=== PATIENT | male | born 1980 | race Caucasian/White ===

== ENCOUNTER 2018-10-29 13:44 | Emergency (ER) | payer OTHER, SELFPAY ==
[2018-10-29 13:52] VITALS: BP 211/121; PULSE 108; RESP 20; TEMP 37; O2SAT 100
--- NOTE | 2018-10-29 13:58 | ED.CHESTPAIN ---
HPI - Chest Pain General Chief Complaint: Chest Pain Stated Complaint: possible heart attack Time Seen by Provider: 10/29/18 13:53 Source: patient Mode of arrival: ambulatory Limitations: no limitations History of Present Illness HPI narrative: Patient is a 38-year-old male who presents with low large chronic right inguinal hernia with worsening pain and numbness. He says he woke up with severe right groin pain he then started having chest pain and arm pain. He feels like something might be wrong. He sometimes is able to put his inguinal hernia back in place but most the time it is out. Mom however the numbness in increased pain is what is concerning to him. His chest pain is nonradiating centrally located he denies shortness of breath MD complaint: chest pain and other (Right groin pain) Related Data Home Medications Medication Instructions Recorded Confirmed albuterol sulfate [Ventolin HFA] 1 puff INH #0 05/18/17 hydrochlorothiazide 12.5 mg PO QDAY #0 05/18/17 Previous Rx's Medication Instructions Recorded atenolol 50 mg PO DAILY #30 tab 10/29/18 hydrochlorothiazide 12.5 mg PO DAILY #30 tab 10/29/18 Allergies Allergy/AdvReac Type Severity Reaction Status Date / Time No Known Drug Allergies Allergy Verified 10/29/18 14:31 Review of Systems Review of Systems ROS Unobtainable: All systems reviewed & are unremarkable except as noted in HPI and below Constitutional Denies chills, Denies fever(s), Denies lethargy and Denies weakness Eyes Denies change in vision, Denies eye discharge, Denies irritation and Denies loss of vision Cardiovascular Denies dyspnea and Denies dyspnea on exertion Respiratory Denies cough, Denies dyspnea, Denies dyspnea on exertion and Denies wheezing Gastrointestinal Gastrointestinal: Denies abdominal pain, Denies change in bowel habits, Denies diarrhea, Denies nausea and Denies vomiting Genitourinary Reports as per HPI Musculoskeletal Denies back pain, Denies muscle weakness, Denies numbness and Denies tingling Integumentary/Breasts Denies pruritus, Denies erythema, Denies rash and Denies wounds Neurologic Denies loss of vision, Denies numbness, Denies tingling and Denies weakness Allergic/Immunologic Denies wheezing [facility] Medical History Hypertension (Acute) Social History Smoking Status: Current every day smoker Social History Smoking Status: Current every day smoker Exam Initial Vital Signs Initial Vital Signs: Vital Signs Temperature 98.6 F 10/29/18 13:52 Pulse Rate 108 H 10/29/18 13:52 Respiratory Rate 20 10/29/18 13:52 Blood Pressure 211/121 H 10/29/18 13:52 Pulse Oximetry 100 10/29/18 13:52 GENERAL: Well-appearing, well-nourished and in no acute distress. HEENT: Head atraumatic,EOMI, pupils reactive, face symmetric, CARDIOVASCULAR: Regular rate and rhythm without murmurs, rubs or gallops. RESPIRATORY: Breath sounds equal bilaterally, no wheezes rales or rhonchi. ABDOMEN: Soft, nontender. Normoactive bowel sounds all 4 quadrants. No guarding or rebound. : large right inguinal hernia. Not reducible. Testicle felt, slightly tender. left testicle non tender. EXTREMITIES: Normal range of motion, no clubbing or edema. Neurovascularly intact NEUROLOGICAL: Alert and oriented x4.Normal gait and speech. SKIN: Warm, dry, no laceration, no petechiae, no rashes or lesions. Course Orders Ordered: ED Orders 10/29/18 13:46 EKG-12 Lead Routine 10/29/18 14:00 Complete Blood Count AUTO DIFF Stat Comprehensive Metabolic Panel Stat Lipase Stat Partial Thromboplastin Time Stat Prothrombin Time INR Stat Troponin & CK Cardiac Panel Stat 10/29/18 14:07 XR chest 1V Stat 10/29/18 14:25 US scrotum Stat 10/29/18 16:13 CT abdomen pelvis w con Stat Discontinued Medications Hydromorphone HCl (Dilaudid) 0.5 mg IV NOW ONE Stop: 10/29/18 14:26 Last Admin: 10/29/18 14:55 Dose: 0.5 mg Hydromorphone HCl (Dilaudid) 0.5 mg IV NOW ONE Stop: 10/29/18 15:47 Last Admin: 10/29/18 15:59 Dose: 0.5 mg Lorazepam (Ativan) 0.5 mg IV NOW ONE Stop: 10/29/18 15:47 Last Admin: 10/29/18 15:58 Dose: 0.5 mg Vital Signs - 8 hr 10/29/18 13:52 10/29/18 16:30 10/29/18 17:30 Temperature 98.6 F Pulse Rate 108 H 99 H 98 H Respiratory Rate 20 20 22 Blood Pressure 211/121 H Blood Pressure [Left Arm] 174/113 H 171/110 H Pulse Oximetry 100 96 100 MDM - Chest Pain Lab Data Attestation: I reviewed the patient's lab results. Result diagrams: 10/29/18 14:00 10/29/18 14:00 Lab Results 10/29/18 10/29/18 10/29/18 Range/Units 14:00 14:00 14:00 WBC 10.4 (4.5-11.0) X10^3/uL RBC 4.89 (4.5-5.9) X10^6/uL Hgb 16.4 (13.5-17.5) g/dL Hct 46.6 (41-53) % MCV 95.2 (80-100) fL MCH 33.4 (26-34) PG MCHC 35.1 (30-36) % RDW 12.7 (11.6-14.8) % Plt Count 210 (150-400) X10^3/uL Neut % (Auto) 53.6 (50-75) % Lymph % (Auto) 37.2 (25-40) % Hawkins % (Auto) 7.0 (3-14) % Eos % (Auto) 1.0 L (2-4) % Baso % (Auto) 1.2 (0-2) % Neut # (Auto) 5600 (8996-6208) /uL Lymph # (Auto) 3900 (9681-3199) /uL Hawkins # (Auto) 700 (0-900) /uL Eos # (Auto) 100 (0-450) /uL Baso # (Auto) 100 (0-100) /uL PT 10.7 (10.1-12.7) SECONDS INR 0.9 (0.9-1.3) APTT 29 (26.4-36.2) SECONDS Sodium 139 (137-145) mmol/L Potassium 3.6 (3.4-5.1) mmol/L Chloride 103 (98-107) mmol/L Carbon Dioxide 22 (22-32) mmol/L BUN 12 (9-20) mg/dL Creatinine 0.70 (0.66-1.25) mg/dL Estimated GFR > 60.0 (>60) mL/min BUN/Creatinine Ratio 17.1 (6-22) Glucose 107 H (70-100) mg/dL Calcium 9.6 (8.4-10.2) mg/dL Total Bilirubin 1.7 H (0.2-1.3) mg/dL AST 59 (17-59) IU/L ALT 47 (21-72) IU/L Alkaline Phosphatase 96 (38-126) U/L Total Creatine Kinase 119 (55-170) U/L CK-MB (CK-2) 1.23 (<2.37) ng/mL CK-MB (CK-2) Rel Index 1.0 L (1.5-5.0) % Troponin I < 0.012 (0.01-0.034) ng/mL Total Protein 7.7 (6.3-8.2) g/dL Albumin 4.5 (3.5-5.0) g/dL Globulin 3.2 (1.7-4.1) g/dL Albumin/Globulin Ratio 1.4 (1.0-2.8) Lipase 209 (23-300) U/L Imaging Data CT scan - abdomen: Radiologist's impression: PROCEDURE: CT ABDOMEN PELVIS W CON INDICATIONS: right ingunal hernia pain and very large TECHNIQUE: After the administration of oral and intravenous contrast, 5 mm thick sections acquired from the diaphragms to the symphysis. 5 mm thick coronal and sagittal reformats were performed. For radiation dose reduction, the following was used: automated exposure control, adjustment of mA and/or kV according to patient size. COMPARISON: None. FINDINGS: Image quality: Diagnostic. ABDOMEN: Lung bases: Lung bases are clear. Heart size is normal. Solid organs: Liver is borderline prominent in size and demonstrates decreased density when compared to the spleen. No focal liver lesions are identified. Gallbladder is not enlarged or inflamed. Biliary system is non-dilated. Pancreas enhances normally. Spleen is normal in size and enhancement. No adrenal nodules. Kidneys are normal in size and enhancement, without hydronephrosis. A 2 mm nonobstructing superior right renal calculus is evident (image 46, series 4). Peritoneum and bowel: Stomach and duodenum are unremarkable. The small bowel loops are nondilated. The appendix is well-visualized and normal in size and appearance. No mesenteric inflammation is evident. No free fluid, loculated fluid collection or free air is identified. Nodes and vessels: No retroperitoneal or mesenteric adenopathy. Aorta and inferior vena cava are normal in caliber. Bones: No acute fracture or suspicious osseous lesion is identified. Mild degenerative changes of the lumbar spine are noted. PELVIS: Genitourinary: Bladder wall thickness is normal. Miscellaneous: There is a large right inguinal hernia identified that measures approximately 5 x 4 cm at the opening (neck). A prominent amount of mesenteric fat is seen extending into this hernia sac through the right inguinal abdominal wall defect. No bowel is extending into this hernia. Bones: No suspicious bony lesions. No acute pelvic fractures are evident. There mild degenerative changes of the right sacroiliac joint and bilateral hips. IMPRESSION: 1. Large mesenteric fat containing right inguinal hernia extending into the scrotal sac. No bowel is evident extending into this hernia. 2. No bowel obstruction. 3. Probable hepatic steatosis. Please correlate clinically to exclude other chronic liver diseases. 4. Nonobstructing punctate superior right renal calculus. Dictated by: Ton Edmonds M.D. on 10/29/2018 at 16:04 Approved by: Ton Edmonds M.D. on 10/29/2018 at 16:08 us scrotum: Radiologist's impression: PROCEDURE: US SCROTUM INDICATIONS: RT TESTICLE PAIN, LARGE HERNIA TECHNIQUE: Real-time scanning was performed of the scrotum and testicles, with image documentation. Color and pulse Doppler interrogation was performed of both testicles. COMPARISON: None. FINDINGS: Right: Testicle is normal in size at 5.1 x 2.8 x 3.2 cm, and homogenous in echotexture. Epididymis is normal in overall size and morphology. No hydrocele or varicoceles. Overlying scrotal skin is normal in thickness. There is a very large right inguinal hernia containing mesentery. No definite bowel is seen extending into this hernia. This hernia extends from the right inguinal region into the right scrotum and measures at least 16 x 9 cm. Left: Testicle is normal in size at 4.8 x 2.5 x 3.2 cm, and homogeneous in echotexture. Epididymis is normal in overall size and morphology. No hydrocele or varicoceles. Overlying scrotal skin is normal in thickness. Doppler: Color and pulse Doppler demonstrate normal and symmetric arterial flow in both testicles. IMPRESSION: 1. Large right inguinal hernia containing mesenteric fat that extends into the right scrotal sac. No definite bowel is seen within this hernia. The need for better characterization utilizing a pelvis CT may be determined clinically. 2. No evidence of testicular mass, epididymal orchitis, or testicular torsion. Dictated by: Ton Edmonds M.D. on 10/29/2018 at 14:46 Chest x-ray: Radiologist's impression: PROCEDURE: XR CHEST 1V INDICATIONS: chest pain TECHNIQUE: One view of the chest was acquired. COMPARISON: None. FINDINGS: Surgical changes and devices: None. Lungs and pleura: Lungs are clear. No pleural effusions or pneumothorax. Mediastinum: Mediastinal contours appear normal. Heart size is normal. Bones and chest wall: No suspicious bony lesions. Overlying soft tissues appear unremarkable. IMPRESSION: Negative chest. No acute cardiopulmonary process is suspected. Dictated by: Ton Edmonds M.D. on 10/29/2018 at 14:14 ECG Data Attestation: I personally reviewed and interpreted this ECG as follows: Prior ECG tracings: available for review Interpretation: Normal sinus rhythm rate 108 p.r. interval 128 acute RS [address] elevations or depressions similar to previous EKG MDM Narrative Medical decision making narrative: The patient's chest pain started after his right inguinal hernia pain. He had extreme sharp pain in his right inguinal hernia while on the toilet. This has happened to him in the past however he feels like it might be numb. Ultrasound confirms good blood flow to the testes. I have tried to reduce it he says that it has gone down over it looks the same size to me. I am able to press on the hernia without any significant discomfort. It does not seem reducible to me but he is not in severe significant pain. A CT does show large fat containing hernia. This hernia has been here for at least 20 years. It is non reducible he feels it coming in and out. At this time the numbness that he was feeling is overall better. His chest pain has resolved. He states that he has not been on his blood pressure medication for a while, he has not been able to make appointment with PCP. I will refill his blood pressure medications. He really no longer is having any chest pain. His biggest concern and pain started in his inguinal hernia. Discharge Plan Departure Patient Disposition: Home Clinical Impression: Hernia, inguinal, right Discharge Date/Time: 10/29/18 17:40 Interventions: ED Discharge Assessment Last Done: 10/29/18 17:39 Instructions: DI for Groin Hernia Activity Restrictions/Additional Instructions: *You have been diagnosed with large right inguinal hernia filled with fat *What to do: At this time blood work and heart are reassuring. You will need to have surgery on your hernia however at this time it is non emergent. *Continue to take medications as directed Atenolol 50 mg once a day Hydrochlorothiazide 12.5 mg once a day *Follow up with your primary care provider in 2-3 days *Return to ER if you should have increasing right groin pain, persistent vomiting inability to have bowel movement, chest pain shortness of breath or any new, worsening or concerning symptoms Prescriptions: New atenolol 50 mg tablet 50 mg PO DAILY Qty: 30 RF: 0 hydrochlorothiazide 12.5 mg tablet 12.5 mg PO DAILY Qty: 30 RF: 0 No Action hydrochlorothiazide 12.5 MG tablet 12.5 mg PO QDAY Qty: 0 RF: 0 albuterol sulfate [Ventolin HFA] 90 MCG/PUFF HFA aerosol inhaler 1 puff INH Qty: 0 RF: 0 Referrals: [facility] [Provider Group] [facility] [Outside]
--- NOTE | 2018-10-29 14:07 | DI.RAD.S_ITS ---
PROCEDURE: XR CHEST 1V INDICATIONS: chest pain TECHNIQUE: One view of the chest was acquired. COMPARISON: None. FINDINGS: Surgical changes and devices: None. Lungs and pleura: Lungs are clear. No pleural effusions or pneumothorax. Mediastinum: Mediastinal contours appear normal. Heart size is normal. Bones and chest wall: No suspicious bony lesions. Overlying soft tissues appear unremarkable. IMPRESSION: Negative chest. No acute cardiopulmonary process is suspected. Dictated by: Ton Edmonds M.D. on 10/29/2018 at 14:14 Approved by: Ton Edmonds M.D. on 10/29/2018 at 14:14
--- NOTE | 2018-10-29 14:25 | DI.US.S_ITS ---
PROCEDURE: US SCROTUM INDICATIONS: RT TESTICLE PAIN, LARGE HERNIA TECHNIQUE: Real-time scanning was performed of the scrotum and testicles, with image documentation. Color and pulse Doppler interrogation was performed of both testicles. COMPARISON: None. FINDINGS: Right: Testicle is normal in size at 5.1 x 2.8 x 3.2 cm, and homogenous in echotexture. Epididymis is normal in overall size and morphology. No hydrocele or varicoceles. Overlying scrotal skin is normal in thickness. There is a very large right inguinal hernia containing mesentery. No definite bowel is seen extending into this hernia. This hernia extends from the right inguinal region into the right scrotum and measures at least 16 x 9 cm. Left: Testicle is normal in size at 4.8 x 2.5 x 3.2 cm, and homogeneous in echotexture. Epididymis is normal in overall size and morphology. No hydrocele or varicoceles. Overlying scrotal skin is normal in thickness. Doppler: Color and pulse Doppler demonstrate normal and symmetric arterial flow in both testicles. IMPRESSION: 1. Large right inguinal hernia containing mesenteric fat that extends into the right scrotal sac. No definite bowel is seen within this hernia. The need for better characterization utilizing a pelvis CT may be determined clinically. 2. No evidence of testicular mass, epididymal orchitis, or testicular torsion. Dictated by: Ton Edmonds M.D. on 10/29/2018 at 14:46 Approved by: Ton Edmonds M.D. on 10/29/2018 at 14:49
[2018-10-29 14:33] LABS: Add Manual Diff / Slide Review NO; Basophils Absolute Auto 100 /uL (0-100); Basophils Percent Auto 1.2 % (0-2); Eosinophils Absolute Auto 100 /uL (0-450); Hematocrit 46.6 % (41-53); Hemoglobin 16.4 g/dL (13.5-17.5); Lymphocytes Absolute Auto 3900 /uL (1100-4500); Lymphocytes Percent Auto 37.2 % (25-40); Mean Corpuscular HGB Conc 35.1 % (30-36); Mean Corpuscular Hemoglobin 33.4 PG (26-34); Mean Corpuscular Volume 95.2 fL (80-100); Monocytes Absolute Auto 700 /uL (0-900); Neutrophils Absolute Auto 5600 /uL (1500-7000); Neutrophils Percent Auto 53.6 % (50-75); Platelet Count 210 X10^3/uL (150-400); Red Blood Cell Count 4.89 X10^6/uL (4.5-5.9); Red Cell Distribution Width 12.7 % (11.6-14.8); White Blood Cell Count 10.4 X10^3/uL (4.5-11.0)
[2018-10-29 14:39] LABS: Alanine Aminotransferase 47 IU/L (21-72); Albumin 4.5 g/dL (3.5-5.0); Albumin Globulin Ratio 1.4 (1.0-2.8); Alkaline Phosphatase 96 U/L (38-126); Aspartate Aminotransferase 59 IU/L (17-59); BUN Creatinine Ratio 17.1 (6-22); Bilirubin Total 1.7 mg/dL (0.2-1.3); Blood Urea Nitrogen 12 mg/dL (9-20); Calcium 9.6 mg/dL (8.4-10.2); Carbon Dioxide 22 mmol/L (22-32); Chloride 103 mmol/L (98-107); Creatine Kinase 119 U/L (55-170); Estimated Glomerular Filt Rate > 60.0 mL/min (>60); Globulin 3.2 g/dL (1.7-4.1); Glucose 107 mg/dL (70-100); HEMOLYSIS 15 (0-50); INR 0.9 (0.9-1.3); Lipase 209 U/L (23-300); Potassium 3.6 mmol/L (3.4-5.1); Prothrombin Time 10.7 SECONDS (10.1-12.7); Sodium 139 mmol/L (137-145); Total Protein 7.7 g/dL (6.3-8.2)
[2018-10-29 14:41] LABS: PTT Partial Thromboplastin Tim 29 SECONDS (26.4-36.2)
[2018-10-29 14:51] LABS: Troponin I < 0.012 ng/mL (0.01-0.034)
[2018-10-29 14:54] LABS: Creatine Kinase MB 1.23 ng/mL (<2.37)
[2018-10-29] MEDS: HYDROMORPHONE 0.5 MG INJ IV ×2 (14:55→15:59)
[2018-10-29] MEDS: LORazepam 2 MG/ML INJ 0.5 MG IV (15:58)
--- NOTE | 2018-10-29 16:13 | DI.CT.S_ITS ---
PROCEDURE: CT ABDOMEN PELVIS W CON INDICATIONS: right ingunal hernia pain and very large TECHNIQUE: After the administration of oral and intravenous contrast, 5 mm thick sections acquired from the diaphragms to the symphysis. 5 mm thick coronal and sagittal reformats were performed. For radiation dose reduction, the following was used: automated exposure control, adjustment of mA and/or kV according to patient size. COMPARISON: None. FINDINGS: Image quality: Diagnostic. ABDOMEN: Lung bases: Lung bases are clear. Heart size is normal. Solid organs: Liver is borderline prominent in size and demonstrates decreased density when compared to the spleen. No focal liver lesions are identified. Gallbladder is not enlarged or inflamed. Biliary system is non-dilated. Pancreas enhances normally. Spleen is normal in size and enhancement. No adrenal nodules. Kidneys are normal in size and enhancement, without hydronephrosis. A 2 mm nonobstructing superior right renal calculus is evident (image 46, series 4). Peritoneum and bowel: Stomach and duodenum are unremarkable. The small bowel loops are nondilated. The appendix is well-visualized and normal in size and appearance. No mesenteric inflammation is evident. No free fluid, loculated fluid collection or free air is identified. Nodes and vessels: No retroperitoneal or mesenteric adenopathy. Aorta and inferior vena cava are normal in caliber. Bones: No acute fracture or suspicious osseous lesion is identified. Mild degenerative changes of the lumbar spine are noted. PELVIS: Genitourinary: Bladder wall thickness is normal. Miscellaneous: There is a large right inguinal hernia identified that measures approximately 5 x 4 cm at the opening (neck). A prominent amount of mesenteric fat is seen extending into this hernia sac through the right inguinal abdominal wall defect. No bowel is extending into this hernia. Bones: No suspicious bony lesions. No acute pelvic fractures are evident. There mild degenerative changes of the right sacroiliac joint and bilateral hips. IMPRESSION: 1. Large mesenteric fat containing right inguinal hernia extending into the scrotal sac. No bowel is evident extending into this hernia. 2. No bowel obstruction. 3. Probable hepatic steatosis. Please correlate clinically to exclude other chronic liver diseases. 4. Nonobstructing punctate superior right renal calculus. Dictated by: Ton Edmonds M.D. on 10/29/2018 at 16:04 Approved by: Ton Edmonds M.D. on 10/29/2018 at 16:08
[2018-10-29 16:30] VITALS: BP 174/113; PULSE 99; RESP 20; O2SAT 96
[2018-10-29 17:30] VITALS: BP 171/110; PULSE 98; RESP 22; O2SAT 100
== END 2018-10-29 17:40 | disposition home or self-care (01) ==
PROVIDERS: Emergency Provider Emergency Medicine
DX: K40.90 Unilateral inguinal hernia, without obstruction or gangrene, not specified as recurrent (principal)
CPT/HCPCS: 36591; 71045; 74177; 76870; 80053; 82550; 82553; 83690; 84484; 85025; 85610; 85730; 93005; 96374; 96375; 96376; 99282; 99285; J1170; J2060; Q9967

== ENCOUNTER 2018-11-13 12:40 | Emergency (ER) | payer OTHER, SELFPAY ==
[2018-11-13 12:53] VITALS: BP 179/132; PULSE 91; RESP 18; TEMP 37.1; O2SAT 98
--- NOTE | 2018-11-13 12:56 | DI.RAD.S_ITS ---
PROCEDURE: XR CHEST 1V INDICATIONS: chest pain TECHNIQUE: One view of the chest was acquired. COMPARISON: [facility], CR, XR CHEST 1V, 10/29/2018, 14:18. FINDINGS: Surgical changes and devices: None. Lungs and pleura: Lungs are clear. No pleural effusions or pneumothorax. Mediastinum: Mediastinal contours appear normal. Heart size is normal. Bones and chest wall: No suspicious bony lesions. Overlying soft tissues appear unremarkable. IMPRESSION: Stable chest. No acute cardiopulmonary process is evident. Dictated by: Ton Edmonds M.D. on 11/13/2018 at 12:34 Approved by: Ton Edmonds M.D. on 11/13/2018 at 12:35
[2018-11-13 13:02] LABS: Add Manual Diff / Slide Review NO; Basophils Absolute Auto 100 /uL (0-100); Basophils Percent Auto 0.9 % (0-2); Eosinophils Absolute Auto 100 /uL (0-450); Eosinophils Percent Auto 1.5 % (2-4); Hematocrit 44.8 % (41-53); Hemoglobin 15.6 g/dL (13.5-17.5); Lymphocytes Absolute Auto 2200 /uL (1100-4500); Lymphocytes Percent Auto 24.4 % (25-40); Mean Corpuscular HGB Conc 34.8 % (30-36); Mean Corpuscular Hemoglobin 33.8 PG (26-34); Mean Corpuscular Volume 97.1 fL (80-100); Monocytes Absolute Auto 600 /uL (0-900); Monocytes Percent Auto 6.3 % (3-14); Neutrophils Absolute Auto 6000 /uL (1500-7000); Neutrophils Percent Auto 66.9 % (50-75); Platelet Count 232 X10^3/uL (150-400); Red Blood Cell Count 4.61 X10^6/uL (4.5-5.9); Red Cell Distribution Width 12.9 % (11.6-14.8)
[2018-11-13 13:04] LABS: INR 0.9 (0.9-1.3); Prothrombin Time 10.8 SECONDS (10.1-12.7)
[2018-11-13 13:07] LABS: PTT Partial Thromboplastin Tim 29 SECONDS (26.4-36.2)
[2018-11-13 13:08] LABS: Alanine Aminotransferase 36 IU/L (21-72); Albumin 4.4 g/dL (3.5-5.0); Albumin Globulin Ratio 1.5 (1.0-2.8); Alkaline Phosphatase 85 U/L (38-126); Aspartate Aminotransferase 34 IU/L (17-59); Bilirubin Total 0.8 mg/dL (0.2-1.3); Blood Urea Nitrogen 14 mg/dL (9-20); Calcium 10.1 mg/dL (8.4-10.2); Carbon Dioxide 23 mmol/L (22-32); Chloride 104 mmol/L (98-107); Creatine Kinase 105 U/L (55-170); Estimated Glomerular Filt Rate > 60.0 mL/min (>60); Globulin 2.9 g/dL (1.7-4.1); Glucose 102 mg/dL (70-100); HEMOLYSIS < 15 (0-50); Lipase 60 U/L (23-300); Magnesium 1.5 mg/dL (1.6-2.3); Sodium 138 mmol/L (137-145); Total Protein 7.3 g/dL (6.3-8.2)
--- NOTE | 2018-11-13 13:08 | ED_ITS ---
HPI - Chest Pain <SHALA Parra - Last Filed: 11/13/18 22:27> General Chief Complaint: Chest Pain Stated Complaint: left shoulder/arm pain/cp/groin pain today Time Seen by Provider: 11/13/18 12:42 Source: patient Mode of arrival: ambulatory Limitations: no limitations History of Present Illness HPI narrative: 38-year-old male with a history of chronic right inguinal hernia that has been present for 20 years from a football injury and hypertension, presents emergency department today complaining of worsening numbness and tingling in his right testicle that occurred 45 minutes ago. He states that his hernia has not bothered him in the past, but he started having symptoms 3 weeks ago when he presented to the emergency department for the similar complaint. Today when the pain in his testicle occurred, he simultaneously developed substernal sharp stabbing 8/10 chest pain, left arm pain, and shortness of breath. Denies aggravating or alleviating symptoms. Patient states that he was feeling very anxious about his worsening testicle pain. He denies any headaches, worsening chest pain with exertion, orthopnea, cough, fevers, abdominal pain, nausea, vomiting, dysuria, penile discharge, rashes, or generalized weakness. Patient states he has not been taking his high blood pressure medication for the past month as he is for continent. Related Data Home Medications Medication Instructions Recorded Confirmed albuterol sulfate [Ventolin HFA] 1 puff INH #0 05/18/17 hydrochlorothiazide 12.5 mg PO QDAY #0 05/18/17 Previous Rx's Medication Instructions Recorded atenolol 50 mg PO DAILY #30 tab 10/29/18 hydrochlorothiazide 12.5 mg PO DAILY #30 tab 10/29/18 cephalexin 500 mg PO QID 7 Days #28 cap 11/13/18 hydrocodone-acetaminophen [[place]] 1 tab PO Q4-6H #14 tab 11/13/18 Allergies Allergy/AdvReac Type Severity Reaction Status Date / Time No Known Drug Allergies Allergy Verified 11/13/18 12:56 Review of Systems <SHALA Parra - Last Filed: 11/13/18 22:27> Review of Systems Narrative: REVIEW OF SYSTEMS: GENERAL: Denies fever, chills, malaise, or wt. loss. HENT: No head trauma, sore throat, or dysphagia. EYES: No loss of vision, double vision, eye pain, or irritation. CARDIOVASCULAR: Complains of chest pain, see HPI. RESPIRATORY: No cough. GASTROINTESTINAL: Complains of right testicular pain, see HPI GENITOURINARY: No flank pain, urinary incontinence, hesitancy, frequency, or dysuria. MUSCULOSKELETAL: No pain, weakness, or trauma. INTEGUMENTARY: No rash, lesions, or pruritus. NEURO: No numbness, tingling, memory loss, confusion, or headaches. PSYCH: No behavior or mood changes. PFSH <SHALA Parra - Last Filed: 11/13/18 22:27> Medical History Hypertension (Acute) Social History Smoking Status: Current every day smoker Social History Smoking Status: Current every day smoker Exam <SHALA Parra - Last Filed: 11/13/18 22:27> Initial Vital Signs Initial Vital Signs: Vital Signs Temperature 98.8 F 11/13/18 12:53 Pulse Rate 91 H 11/13/18 12:53 Respiratory Rate 18 11/13/18 12:53 Blood Pressure 179/132 H 11/13/18 12:53 Pulse Oximetry 98 11/13/18 12:53 PHYSICAL EXAMINATION: GENERAL: Well groomed, alert, and cooperative. Patient appears very anxious on examination. Answers questions promptly and appropriately. Vital signs noted. HENT: Normocephalic, atraumatic. Hearing intact. Oral mucosa is pink and moist. EYES: Conjunctiva pink, sclera white, no periorbital swelling. CARDIOVASCULAR: S1 and S2 sounds normal. Regular rate and rhythm, no murmurs, clicks, or bruits. No pedal edema. RESPIRATORY: Normal respiratory rate, trachea midline, airway patent. No s tridor, nasal flaring or accessory muscle use. Lungs are clear in all doherty without wheeze, rhonchi, or crackles. GASTROINTESTINAL: Bowel sounds normoactive. Abdomen is soft and non-tender. No organomegaly, no palpable masses. GENITALURINARY: Large softball size inguinal hernia and right side of scrotum, no increased tenderness on palpation, no masses palpated, no erythema or discoloration. No penile discharge. No flank tenderness. MUSCULOSKELETAL: Normal gait and coordination. Equal tone and mass bilaterally. EXTREMITIES: CMS intact, no pedal edema. SKIN: Warm, dry, soft, appropriate color for ethnicity. No lesions, rashes, or wounds. NEURO: Alert and Oriented X 3. Good coordination. No ataxia, or sensory deficits, or cognitive issues. PSYCH: Appropriate affect and mood. <Nancy Patel DO - Last Filed: 11/14/18 07:37> Initial Vital Signs Initial Vital Signs: Vital Signs Temperature 98.8 F 11/13/18 12:53 Pulse Rate 91 H 11/13/18 12:53 Respiratory Rate 18 11/13/18 12:53 Blood Pressure 179/132 H 11/13/18 12:53 Pulse Oximetry 98 11/13/18 12:53 Scores <SHALA Parra - Last Filed: 11/13/18 22:27> CHADS-VASc Congestive heart failure: no Hypertension: no Age 75 years or older: no Diabetes mellitus: no Stroke, TIA, or TE: no Vascular disease: no Age 65 to 74 years: no Sex category (female): Male CHADS-VASc Score: 0 Course <SHALA Parra - Last Filed: 11/13/18 22:27> Course Course Narrative: I had an extensive conversation with patient and his for over 15 minutes discussing possible origin of the patient's pain as well as relating that his test results were negative for concerning findings. Patient states his chest pain resolved after administration of Ativan, but the pain in his right testicle still remained, he had no relief from Toradol. Patient was requesting more medication, he was given a dose of IV medication and a prescription to take home. After much discussion, was very concerned about the pain on the posterior side of the scrotum, this correlates with a thickening seen on ultrasound. I offered a prescription for Keflex if the area becomes red, increased swelling, or increased pain that he may take for the possibility of cellulitis. Patient agreed that he would not take this medication unless his symptoms worsen. I stressed the importance of taking his blood pressure medication as well as a follow-up on . She was given a note for work as per request Orders Ordered: Discontinued Medications Aspirin (Aspirin Chew) 324 mg PO NOW ONE Stop: 11/13/18 12:57 Last Admin: 11/13/18 13:33 Dose: 324 mg Documented by: BRANDI Hydromorphone HCl (Dilaudid) 0.5 mg IV NOW ONE Stop: 11/13/18 14:28 Last Admin: 11/13/18 14:39 Dose: 0.5 mg Documented by: MAIN Ketorolac Tromethamine (Toradol) 30 mg IV NOW ONE Stop: 11/13/18 13:19 Last Admin: 11/13/18 13:32 Dose: 30 mg Documented by: BRANDI Lorazepam (Ativan) 1 mg IV NOW ONE Stop: 11/13/18 13:19 Last Admin: 11/13/18 13:33 Dose: 1 mg Documented by: BRANDI Ondansetron HCl (Zofran) 4 mg IV NOW ONE Stop: 11/13/18 12:59 Last Admin: 11/13/18 13:32 Dose: 4 mg Documented by: BRANDI Vital Signs Vital signs: Vital Signs - 8 hr 11/13/18 15:00 11/13/18 15:18 Temperature 98.4 F Pulse Rate 81 82 Respiratory Rate 22 20 Blood Pressure 173/114 H Blood Pressure [Right Arm] 183/115 H Pulse Oximetry 94 98 <Nancy Patel DO - Last Filed: 11/14/18 07:37> Orders Ordered: Discontinued Medications Aspirin (Aspirin Chew) 324 mg PO NOW ONE Stop: 11/13/18 12:57 Last Admin: 11/13/18 13:33 Dose: 324 mg Documented by: BRANDI Hydromorphone HCl (Dilaudid) 0.5 mg IV NOW ONE Stop: 11/13/18 14:28 Last Admin: 11/13/18 14:39 Dose: 0.5 mg Documented by: MAIN Ketorolac Tromethamine (Toradol) 30 mg IV NOW ONE Stop: 11/13/18 13:19 Last Admin: 11/13/18 13:32 Dose: 30 mg Documented by: BRANDI Lorazepam (Ativan) 1 mg IV NOW ONE Stop: 11/13/18 13:19 Last Admin: 11/13/18 13:33 Dose: 1 mg Documented by: JWILBOU Ondansetron HCl (Zofran) 4 mg IV NOW ONE Stop: 11/13/18 12:59 Last Admin: 11/13/18 13:32 Dose: 4 mg Documented by: BRANDI Vital Signs Vital signs: Vital Signs - 8 hr 11/13/18 15:00 11/13/18 15:18 Temperature 98.4 F Pulse Rate 81 82 Respiratory Rate 22 20 Blood Pressure 173/114 H Blood Pressure [Right Arm] 183/115 H Pulse Oximetry 94 98 MDM - Chest Pain <SHALA Parra - Last Filed: 11/13/18 22:27> Medical Records Data Attestation: I reviewed the patient's medical records. Lab Data Attestation: I reviewed the patient's lab results. Result diagrams: 11/13/18 12:50 11/13/18 12:50 Labs: Lab Results 11/13/18 11/13/18 11/13/18 Range/Units 12:50 12:50 12:50 WBC 9.0 (4.5-11.0) X10^3/uL RBC 4.61 (4.5-5.9) X10^6/uL Hgb 15.6 (13.5-17.5) g/dL Hct 44.8 (41-53) % MCV 97.1 (80-100) fL MCH 33.8 (26-34) PG MCHC 34.8 (30-36) % RDW 12.9 (11.6-14.8) % Plt Count 232 (150-400) X10^3/uL Neut % (Auto) 66.9 (50-75) % Lymph % (Auto) 24.4 L (25-40) % Bibb % (Auto) 6.3 (3-14) % Eos % (Auto) 1.5 L (2-4) % Baso % (Auto) 0.9 (0-2) % Neut # (Auto) 6000 (8908-0912) /uL Lymph # (Auto) 2200 (4930-9421) /uL Bibb # (Auto) 600 (0-900) /uL Eos # (Auto) 100 (0-450) /uL Baso # (Auto) 100 (0-100) /uL PT 10.8 (10.1-12.7) SECONDS INR 0.9 (0.9-1.3) APTT 29 (26.4-36.2) SECONDS Sodium 138 (137-145) mmol/L Potassium 4.0 (3.4-5.1) mmol/L Chloride 104 (98-107) mmol/L Carbon Dioxide 23 (22-32) mmol/L BUN 14 (9-20) mg/dL Creatinine 0.70 (0.66-1.25) mg/dL Estimated GFR > 60.0 (>60) mL/min BUN/Creatinine Ratio 20.0 (6-22) Glucose 102 H (70-100) mg/dL Calcium 10.1 (8.4-10.2) mg/dL Magnesium 1.5 L (1.6-2.3) mg/dL Total Bilirubin 0.8 (0.2-1.3) mg/dL AST 34 (17-59) IU/L ALT 36 (21-72) IU/L Alkaline Phosphatase 85 (38-126) U/L Total Creatine Kinase 105 (55-170) U/L CK-MB (CK-2) 1.28 (<2.37) ng/mL CK-MB (CK-2) Rel Index 1.2 L (1.5-5.0) % Troponin I < 0.012 (0.01-0.034) ng/mL Total Protein 7.3 (6.3-8.2) g/dL Albumin 4.4 (3.5-5.0) g/dL Globulin 2.9 (1.7-4.1) g/dL Albumin/Globulin Ratio 1.5 (1.0-2.8) Lipase 60 (23-300) U/L Imaging Data Chest x-ray: Radiologist's impression: [address] [address] XRay Report Signed Patient: Joselito Waddell WMR#: [id number] : 1980Acct:[id number] Age/Sex: 38 / MDate of Service: 11/13/18 Loc: ED Accession Number: [id number] Procedure: XR chest 1V Ordering Provider: Marlys Gerber PROCEDURE: XR CHEST 1V INDICATIONS: chest pain TECHNIQUE: One view of the chest was acquired. COMPARISON: [facility], CR, XR CHEST 1V, 10/29/2018, 14:18. FINDINGS: Surgical changes and devices: None. Lungs and pleura: Lungs are clear. No pleural effusions or pneumothorax. Mediastinum: Mediastinal contours appear normal. Heart size is normal. Bones and chest wall: No suspicious bony lesions. Overlying soft tissues appear unremarkable. IMPRESSION: Stable chest. No acute cardiopulmonary process is evident. Dictated by: Ton Edmonds M.D. on 11/13/2018 at 12:34 Approved by: Ton Edmonds M.D. on 11/13/2018 at 12:35 Scrotum US: Radiologist's impression: [address] [address] Ultrasound Report Signed Patient: Joselito Waddell WMR#: [id number] : 1980Acct:[id number] Age/Sex: 38 / MDate of Service: 11/13/18 Loc: ED Accession Number: [id number] Procedure: US scrotum Ordering Provider: Marlys Gerber PROCEDURE: US SCROTUM INDICATIONS: RIGHT TESTICLE NUMBNESS, HISTORY OF HERNIA TECHNIQUE: Real-time scanning was performed of the scrotum and testicles, with image documentation. Color and pulse Doppler interrogation was performed of both testicles. COMPARISON: [facility], , US SCROTUM, 10/29/2018, 15:00. FINDINGS: Right: Testicle is normal in size at 4.9 x 2.1 x 2 point cm, and homogenous in echotexture. Epididymis is normal in overall size and morphology. No hydrocele. Thickening of the right scrotal wall is present. There continues to be a large mesenteric containing right inguinal hernia with extension into the scrotum. Left: Testicle is normal in size at 4.6 x 3.1 x 2.5 cm, and homogeneous in echotexture. Epididymis is normal in overall size and morphology. No hydrocele or varicoce les. Overlying scrotal skin is normal in thickness. Doppler: Color and pulse Doppler demonstrate normal and symmetric arterial flow in both testicles. IMPRESSION: 1. No evidence of testicular torsion, epididymal orchitis, or a testicular mass. 2. There continues to be a large mesenteric fat containing right inguinal hernia that extends into the scrotal sac. 3. Scrotal wall thickening on the right is nonspecific. Please correlate clinically to exclude cellulitis. Dictated by: Ton Edmonds M.D. on 11/13/2018 at 13:02 Approved by: Ton Edmonds M.D. on 11/13/2018 at 13:05 ECG Data Interpretation: Normal sinus rhythm, rate 87, CT interval 160, QTC 396. No ST elevation or ST inversion, no T-wave abnormality, no ectopy. Possible slight left ventricle hypertrophy. EKG was also viewed by Dr. Patel. [facility] Narrative Medical decision making narrative: Patient's symptoms appear to clearly be caused by his known right-sided inguinal hernia. The source of the pain is directly unclear however, due to imaging his testicle does not appear to be compromised. I suspect that his chest pain was caused by anxiety about his inguinal hernia. However, differential includes ACS (less likely due to unchanged EKG, negative troponin, these episodes happened last time he came to the ER for his hernia--however he remains at risk due to his high blood pressure), PE (less likely due to clear lung sounds, lack of tachycardia, patient 98% on room air, no hypoxia exhibited, no reports of recent travel). Low concern for testicular torsion due to ultrasound indicating appropriate blood flow, lack of discoloration, lack of extreme tenderness). There is some suspicion of cellulitis as the ultrasound showed wall thickening at the place that he describes an increase of pain. Prescription was given to patient to use if pain or swelling increased, for erythema developed. Patient was highly encouraged to follow up with his surgical consult this week. Strict return precautions given. <Nancy Patel, DO - Last Filed: 11/14/18 07:37> Lab Data Labs: Lab Results 11/13/18 11/13/18 11/13/18 Range/Units 12:50 12:50 12:50 WBC 9.0 (4.5-11.0) X10^3/uL RBC 4.61 (4.5-5.9) X10^6/uL Hgb 15.6 (13.5-17.5) g/dL Hct 44.8 (41-53) % MCV 97.1 (80-100) fL MCH 33.8 (26-34) PG MCHC 34.8 (30-36) % RDW 12.9 (11.6-14.8) % Plt Count 232 (150-400) X10^3/uL Neut % (Auto) 66.9 (50-75) % Lymph % (Auto) 24.4 L (25-40) % Bibb % (Auto) 6.3 (3-14) % Eos % (Auto) 1.5 L (2-4) % Baso % (Auto) 0.9 (0-2) % Neut # (Auto) 6000 (2230-8626) /uL Lymph # (Auto) 2200 (3537-1721) /uL Bibb # (Auto) 600 (0-900) /uL Eos # (Auto) 100 (0-450) /uL Baso # (Auto) 100 (0-100) /uL PT 10.8 (10.1-12.7) SECONDS INR 0.9 (0.9-1.3) APTT 29 (26.4-36.2) SECONDS Sodium 138 (137-145) mmol/L Potassium 4.0 (3.4-5.1) mmol/L Chloride 104 (98-107) mmol/L Carbon Dioxide 23 (22-32) mmol/L BUN 14 (9-20) mg/dL Creatinine 0.70 (0.66-1.25) mg/dL Estimated GFR > 60.0 (>60) mL/min BUN/Creatinine Ratio 20.0 (6-22) Glucose 102 H (70-100) mg/dL Calcium 10.1 (8.4-10.2) mg/dL Magnesium 1.5 L (1.6-2.3) mg/dL Total Bilirubin 0.8 (0.2-1.3) mg/dL AST 34 (17-59) IU/L ALT 36 (21-72) IU/L Alkaline Phosphatase 85 (38-126) U/L Total Creatine Kinase 105 (55-170) U/L CK-MB (CK-2) 1.28 (<2.37) ng/mL CK-MB (CK-2) Rel Index 1.2 L (1.5-5.0) % Troponin I < 0.012 (0.01-0.034) ng/mL Total Protein 7.3 (6.3-8.2) g/dL Albumin 4.4 (3.5-5.0) g/dL Globulin 2.9 (1.7-4.1) g/dL Albumin/Globulin Ratio 1.5 (1.0-2.8) Lipase 60 (23-300) U/L ECG Data Attestation: I personally reviewed and interpreted this ECG as follows: Prior ECG tracings: available for review Interpretation: Normal sinus rhythm rate 87 p.r. interval 160 QRS [address] changes no T-wave inversions no sign of ischemia similar to previous EKGs Discharge Plan Departure Patient Disposition: Home Clinical Impression: Pain in right testicle Inguinal hernia Qualifiers: Obstruction and gangrene presence: without obstruction or gangrene Laterality: unilateral Recurrence: not specified as recurrent Qualified Code(s): K40.90 - Unilateral inguinal hernia, without obstruction or gangrene, not specified as recurrent Discharge Date/Time: 11/13/18 15:20 Instructions: DI for Cellulitis -- Adult, DI for Groin Hernia, DI for Atypical Chest Pain Activity Restrictions/Additional Instructions: Thank you for entrusting me with your care today. As discussed, your ultrasound shows that your hernia size is unchanged and there is no damage to your testicle. Your labs, EKG, and x-ray are not concerning for any heart issues. I highly recommend he continue taking your blood pressure medication. Please follow up with the surgeon as scheduled on . I have given you medication for pain, do not drive with this medication as it can make you drowsy, also be aware that it can cause constipation. Additionally, I have given you a medication for infection, if you continue to have pain and or increased swelling or redness please take this medication. If you take this medication, please take as directed and complete the entire course so the infection does not return. Return to the emergency department if he develops syncope, shortness of breath, severe headache, chest pain, high fevers, or other concerning symptoms. Prescriptions: New hydrocodone-acetaminophen [[place]] 5-325 mg tablet 1 tab PO Q4-6H Qty: 14 RF: 0 cephalexin 500 mg capsule 500 mg PO QID 7 Days Qty: 28 RF: 0 No Action hydrochlorothiazide 12.5 MG tablet 12.5 mg PO QDAY Qty: 0 RF: 0 albuterol sulfate [Ventolin HFA] 90 MCG/PUFF HFA aerosol inhaler 1 puff INH Qty: 0 RF: 0 atenolol 50 mg tablet 50 mg PO DAILY Qty: 30 RF: 0 hydrochlorothiazide 12.5 mg tablet 12.5 mg PO DAILY Qty: 30 RF: 0 Stand Alone Forms: Work Release Note
[2018-11-13 13:19] LABS: Troponin I < 0.012 ng/mL (0.01-0.034)
[2018-11-13 13:23] LABS: CKMB % Relative Index 1.2 % (1.5-5.0); Creatine Kinase MB 1.28 ng/mL (<2.37)
[2018-11-13 13:30] VITALS: BP 175/109; PULSE 86; RESP 15; O2SAT 97
[2018-11-13] MEDS: KETOROLAC 60 MG/2 ML VIAL 30 MG IV (13:32)
[2018-11-13] MEDS: ONDANSETRON 4 MG/2 ML INJ IV (13:32)
[2018-11-13] MEDS: ASPIRIN 81 MG CHEW TAB 324 MG PO (13:33)
[2018-11-13] MEDS: LORazepam 2 MG/ML INJ 1 MG IV (13:33)
[2018-11-13 14:00] VITALS: BP 181/105; PULSE 82; RESP 25; O2SAT 96
[2018-11-13] MEDS: HYDROMORPHONE 0.5 MG INJ IV (14:39)
[2018-11-13 15:00] VITALS: BP 183/115; PULSE 81; RESP 22; O2SAT 94
[2018-11-13 15:18] VITALS: BP 173/114; PULSE 82; RESP 20; TEMP 36.9; O2SAT 98
== END 2018-11-13 15:20 | disposition home or self-care (01) ==
PROVIDERS: Emergency Provider Nurse Practitioner
DX: N50.811 Right testicular pain (principal); K40.90 Unilateral inguinal hernia, without obstruction or gangrene, not specified as recurrent; R07.9 Chest pain, unspecified
CPT/HCPCS: 36591; 71045; 76870; 80053; 82550; 82553; 83690; 83735; 84484; 85025; 85610; 85730; 93005; 96374; 96375; 99283; 99285; J1170; J1885; J2060; J2405

== ENCOUNTER 2018-11-28 14:32 | Day surgery (SDC) | payer OTHER, SELFPAY ==
[2018-11-23 08:14] VITALS: BMI 31.4
[2018-11-28] VITALS (12 sets, daily range): BP systolic 102–143; BP diastolic 66–99; PULSE 67–79; RESP 9–16; TEMP 36.2–37; O2SAT 93–97; BMI 30.5
[2018-11-28] MEDS: LACTATED RINGERS 1,000 ML 100 ML IV (15:03)
[2018-11-28] MEDS: CEFAZOLIN 2 GM/100 ML FROZ.PIGGY IV (16:44)
--- NOTE | 2018-11-28 17:10 | SUR.OPER ---
Supine on padded OR bed, head on pillow, arms secured on padded arm boards at <90 degrees abduction, legs uncrossed, safety belt at thigh, tape over blanket over lower legs.
[2018-11-28] MEDS: BUPIVACAINE 0.5% (PF) VIAL 30 ML INJ (17:17)
[2018-11-28] MEDS: LACTATED RINGERS 1,000 ML 42 ML IV (18:14)
[2018-11-28] MEDS: fentaNYL 100 MCG/2 ML INJ 50 MCG IV ×2 (19:07→19:16)
--- NOTE | 2018-11-28 19:12 | SUR.PHASEI ---
Rx given for surgical site pain. HOB elevated, jello and water given to prepare for PO rx. Dr. Lott spoke to patient.
--- NOTE | 2018-11-28 19:16 | PM.OP.1 ---
Operative Date/Time/Diagnoses Date of procedure: 11/28/18 Time of procedure: 19:00 Pre-op diagnosis: Incarcerated right inguinal hernia Post-op diagnosis: same (Huge amount of omentum trapped within the right hemiscrotum) Procedure & Clinicians Procedure: Repair with plug and patch technique Same procedure as scheduled: Yes Indications: Symptomatic right inguinal hernia interfering with wearing clothes and walking Surgeon: Alen Lott Click Yes if Unassisted: Yes Anesthesia Type: General Operative Notes Findings: Huge amount of omentum in the scrotum. Reduced with difficulty. Closure Type: primary Specimen(s): none sent Applied: implant(s) (Mesh) Estimated Blood Loss (mL): 40 Blood products transfused: none Procedure in detail: The patient was placed supine on the operating room table and underwent general LMA anesthesia. He was prepped and draped in the usual fashion. I included the scrotum in the prep. A transverse incision was made overlying the internal ring and carried down to the level of the external oblique. The external oblique was opened parallel with its fibers through the external ring. The hernia was so large that I could not initially elevate the cord structures. An incision was made in the cremaster and I carried it down to the hernia sac. The hernia sac was opened longitudinally and I pulled the large amount of omentum out of his scrotum. I then set about the task of reducing it into the peritoneal cavity. This was done with great difficulty and tedium. The patient was placed in Trendelenburg. He actually had to be paralyzed in order that I could relaxes abdominal wall enough to ultimately reduce the omentum back into the peritoneal cavity. The cord structures were then elevated. I dissected the sac from the surrounding structures and dissected it free of the level the deep epigastric vessels. I removed a large portion of the sac. I then pursestring ligated the sac at the level the deep epigastric vessels with 2 0 silk. I then over sewed the end with the same material. The stump was allowed to retract. A large plug was placed in the defect created intact into place with interrupted Ethibond suture. I then closed the cremaster over it. The floor was examined and was found to be attenuated. A patch was placed across the floor and tacked at the pubic tubercle, the posterior lamella of the anterior rectus sheath, the ilioinguinal ligament, and superior lateral to the cord. The opening was modified as necessary to allow the mesh to go around the enlarged cord and also to prevent tight constriction of the cord. Sutures of 0 Ethibond were used to secure the mesh. The external oblique was closed with a running 3 0 Vicryl. The subcu was closed with interrupted 3 0 Vicryl. The skin was closed with interrupted 4 0 Vicryl subcuticular stitches and michelle. Dressing was applied, the patient was awakened, and the patient was taken to the recovery area in good condition. The testicle was pulled down into the scrotum prior to the patient awakening. Care was taken not to torse it. This was an unusually difficult hernia repair the took twice as long as normal due to its huge size and the amount of omentum within the scrotum. This deformed the anatomy significantly and made the repair that much more challenging. Complications: none Post-operative Condition: stable Disposition: PACU
[2018-11-28] MEDS: OXYCODONE/ACETAMINOPHEN 5/325 TABLET 1 TAB PO (19:20)
--- NOTE | 2018-11-28 19:36 | SUR.PHASEI ---
1925 here, talking with patient. Pt. declined more medication, wants to wait and see how he is when the PO rx takes effect. 1934 Dr. Lott spoke with patient, pt drowsy, trial of room air = sat down to 89%; returned to O2 at 2LNP. Dressing remains CDI. Calm and relaxed.
--- NOTE | 2018-11-28 20:02 | SUR.PHASEI ---
2002 transitioned to phase II, regarding pain, states I'm pretty ok. Occasionially desats briefly then rebounds to 94-96%. Skin warm and dry, resp unlabored. No nausea. Pain is only pressure at the site.
--- NOTE | 2018-11-28 21:11 | SUR.PHASEII ---
2042 returned from getting pain med. Pt stable, comfortable, cooperative, VSS. IV dc'd and assisted into wheelchair by Giorgio Grande RN. Discharged home with . No nausea, resp unlabored, skin warm and dry, color pink. Questions answered.
== END 2018-11-28 20:51 | disposition home or self-care (01) ==
PROVIDERS: PCP Student in an Organized Health Care Education/Training Program; Visit Provider Specialist
PROC: (CPT 49505; principal; 2018-11-28 15:45)
DX: K40.30 Unilateral inguinal hernia, with obstruction, without gangrene, not specified as recurrent (principal); I10 Essential (primary) hypertension
CPT/HCPCS: 49505; C1781; J0690; J1100; J2405; J2704; J3010

== ENCOUNTER 2020-04-29 13:06 | Observation (INO) | payer OTHER, SELFPAY ==
[2020-04-29] VITALS (12 sets, daily range): BP systolic 104–167; BP diastolic 62–106; PULSE 72–82; RESP 12–20; TEMP 36.2–36.6; O2SAT 93–99; BMI 25.4
--- NOTE | 2020-04-29 13:29 | DI.RAD.S_ITS ---
PROCEDURE: XR CHEST 2V INDICATIONS: chest pain TECHNIQUE: 2 views of the chest were acquired. COMPARISON: [facility], CR, XR CHEST 1V, 11/13/2018, 13:05. FINDINGS: Surgical changes and devices: None. Lungs and pleura: Lungs are clear. No pleural effusions or pneumothorax. Mediastinum: Mediastinal contours are normal. Heart size is normal. Bones and chest wall: No suspicious bony abnormalities. Soft tissues appear unremarkable. IMPRESSION: No acute cardiopulmonary abnormality Dictated by: Galdino Negro M.D. on 04/29/2020 at 14:00 Approved by: Galdino Negro M.D. on 04/29/2020 at 14:00
[2020-04-29 14:29] LABS: Alanine Aminotransferase 172 IU/L (<50); Albumin 2.9 g/dL (3.5-5.0); Albumin Globulin Ratio 0.9 (1.0-2.8); Alkaline Phosphatase 313 U/L (38-126); Aspartate Aminotransferase 375 IU/L (17-59); BUN Creatinine Ratio 18.6 (6-22); Bilirubin Total 2.2 mg/dL (0.2-1.3); Blood Urea Nitrogen 16 mg/dL (9-20); Calcium 7.8 mg/dL (8.4-10.2); Carbon Dioxide 24 mmol/L (22-32); Chloride 93 mmol/L (98-107); Creatine Kinase 211 U/L (55-170); Estimated Glomerular Filt Rate > 60.0 mL/min (>60); Globulin 3.4 g/dL (1.7-4.1); Glucose 91 mg/dL (70-100); Lipase 57 U/L (23-300); Potassium 3.3 mmol/L (3.4-5.1); Sodium 126 mmol/L (137-145); Total Protein 6.3 g/dL (6.3-8.2)
[2020-04-29 14:41] LABS: Troponin I < 0.012 ng/mL (0.01-0.034)
[2020-04-29 14:44] LABS: CKMB % Relative Index 1.2 % (1.5-5.0); Creatine Kinase MB 2.47 ng/mL (<2.37)
[2020-04-29 14:46] LABS: Add Manual Diff / Slide Review NO; Basophils Absolute Auto 100 /uL (0-100); Eosinophils Absolute Auto 100 /uL (0-450); Eosinophils Percent Auto 0.9 % (2-4); Hematocrit 39.1 % (41-53); Hemoglobin 13.7 g/dL (13.5-17.5); Lymphocytes Absolute Auto 2200 /uL (1100-4500); Lymphocytes Percent Auto 27.2 % (25-40); Mean Corpuscular Hemoglobin 36.1 PG (26-34); Mean Corpuscular Volume 102.7 fL (80-100); Monocytes Absolute Auto 400 /uL (0-900); Monocytes Percent Auto 4.5 % (3-14); Neutrophils Absolute Auto 5400 /uL (1500-7000); Neutrophils Percent Auto 66.4 % (50-75); Platelet Count 113 X10^3/uL (150-400); Red Blood Cell Count 3.81 X10^6/uL (4.5-5.9); Red Cell Distribution Width 14.7 % (11.6-14.8); White Blood Cell Count 8.1 X10^3/uL (4.5-11.0)
[2020-04-29 14:47] LABS: Mean Corpuscular HGB Conc 35.1 % (30-36)
[2020-04-29 14:50] LABS: HEMOLYSIS 25 (0-50)
--- NOTE | 2020-04-29 17:38 | ED_ITS ---
HPI - Chest Pain General Chief Complaint: Chest Pain Stated Complaint: 48-72 hrs of BP problems, chest pain Time Seen by Provider: 04/29/20 17:38 Source: patient Mode of arrival: Ambulatory History of Present Illness HPI narrative: 40-year-old gentleman with a history of hypertension and regular alcohol use presents with increasing chest pain abdominal pain leg and hand cramping. Symptoms have been getting worse over the last week and half. He notes that he typically will have 5 cocktail type drinks and evening and stopped doing this about 5 days ago. He is noticing of bit of shakiness today. He complains of significant upper abdominal pain that radiates up into his chest. He has noted some dark urine but no flank pain. He does not describe significant fevers but does note that his blood pressure has been quite labile recently when he notes that is elevated he will take extra blood pressure medication and then will have a period of hypotension. He notes that he has been slightly flushed over the last couple of days and comes in today mainly concerned about his chest pain. He denies any vomiting, he notes that he has been constipated with hemorrhoidal bleeding but no other change to stools. He complains of early satiety recently but does not note that he has lost significant weight. Typically he works out regularly and has not been doing that recently because of COVID and gym restrictions. Related Data Home Medications Medication Instructions Recorded Confirmed albuterol sulfate [Ventolin HFA] 1 puff INH PRN PRN #0 05/18/17 01/05/19 hydrochlorothiazide 12.5 mg PO QDAY #0 05/18/17 01/05/19 Previous Rx's Medication Instructions Recorded atenolol 50 mg PO DAILY #30 tab 10/29/18 hydrocodone-acetaminophen [[place]] 1 tab PO Q4-6H #14 tab 11/13/18 oxycodone-acetaminophen 5 mg-325 See Rx Instructions .ROUTE 12/08/18 mg tablet .COMPLEX PRN #20 tab Allergies Allergy/AdvReac Type Severity Reaction Status Date / Time No Known Drug Allergies Allergy Verified 04/29/20 13:28 Review of Systems Review of Systems ROS Unobtainable: All systems reviewed & are unremarkable except as noted in HPI and below Patient History Medical History (Updated 04/29/20 @ 19:54 by Era Montanez MD) Alcohol use disorder Anxiety Hypertension Family History Mother Hypertension Father Hypertension Social History marital status: unmarried,living together household members: significant other and children occupational status: employed Smoking Status: Current every day smoker alcohol intake: current substance use type: does not use Smoking Status: Current every day smoker alcohol intake frequency: 0-2 drinks per day Substance Use Type: marijuana Exam Narrative Exam Narrative: General: Flushed, alert and appropriate in no obvious distress. Able to give a complete and coherent history. Well-nourished well-developed HEENT: Moist mucous membranes, normal sclera with reactive pupils, Neck: No JVD, supple Respiratory: Lungs are clear to auscultation, no wheezing no rales no rhonchi. Full and symmetrical air movement Cardiac: Mild tachycardia with Regular rate and rhythm no murmurs no bruits Abdomen: Soft, tender in the right upper quadrants without rebound or guarding good bowel tones, no flank pain Skin: Flushed and warm, no rashes Neurologic: Grossly neurologically intact with no obvious asymmetries or abn ormalities, states that he feels slightly anxious very mild tremor Extremities: No trauma, well perfused Psych: Cooperative, appropriate insight and affect Initial Vital Signs Initial Vital Signs: Vital Signs Temperature 97.1 F L 04/29/20 13:22 Pulse Rate 72 04/29/20 13:22 Respiratory Rate 12 04/29/20 13:22 Blood Pressure 167/106 H 04/29/20 13:22 Pulse Oximetry 99 04/29/20 13:22 Course Orders Ordered: ED Orders 04/29/20 13:24 EKG-12 Lead Stat 04/29/20 13:29 XR chest 2V Stat 04/29/20 14:05 Complete Blood Count AUTO DIFF Stat Comprehensive Metabolic Panel Stat Hepatitis Acute Panel Stat Lipase Stat Partial Thromboplastin Time Stat Prothrombin Time INR Stat Troponin & CK Cardiac Panel Stat 04/29/20 18:02 CT abdomen pelvis w con Stat Magnesium Sulfate 2 gm/ Folic Acid 1 mg/ Thiamine HCl 100 mg / Multivitamins 10 ml/ Sodium Chloride 1,015.2 mls @ 500 mls/hr IV NOW ONE Stop: 04/29/20 20:01 Last Admin: 04/29/20 18:43 Dose: 500 mls/hr Documented by: ADEBAYO Discontinued Medications Lorazepam (Lorazepam 2 Mg/Ml Inj) 1 mg IV NOW ONE Stop: 04/29/20 18:01 Last Admin: 04/29/20 18:44 Dose: 1 mg Documented by: ADEBAYO Lorazepam (Lorazepam 0.5 Mg Tablet) 2 mg PO NOW ONE Stop: 04/29/20 19:07 Last Admin: 04/29/20 19:35 Dose: 2 mg Documented by: MARCELLO Vital Signs Vital signs: Vital Signs - 8 hr 04/29/20 13:22 04/29/20 15:56 04/29/20 19:30 Temperature 97.1 F L Pulse Rate 72 74 76 Respiratory Rate 12 18 20 Blood Pressure 167/106 H 132/76 Pulse Oximetry 99 98 99 MDM - Chest Pain Medical Records Data Attestation: I reviewed the patient's medical records. Lab Data Attestation: I reviewed the patient's lab results. Result diagrams: 04/29/20 14:05 04/29/20 14:05 Labs: Lab Results 04/29/20 04/29/20 04/29/20 Range/Units 14:05 14:05 14:05 WBC 8.1 (4.5-11.0) X10^3/uL RBC 3.81 L (4.5-5.9) X10^6/uL Hgb 13.7 (13.5-17.5) g/dL Hct 39.1 L (41-53) % MCV 102.7 H (80-100) fL MCH 36.1 H (26-34) PG MCHC 35.1 (30-36) % RDW 14.7 (11.6-14.8) % Plt Count 113 L (150-400) X10^3/uL Neut % (Auto) 66.4 (50-75) % Lymph % (Auto) 27.2 (25-40) % [place] % (Auto) 4.5 (3-14) % Eos % (Auto) 0.9 L (2-4) % Baso % (Auto) 1.0 (0-2) % Neut # (Auto) 5400 (7540-3187) /uL Lymph # (Auto) 2200 (8891-8743) /uL [place] # (Auto) 400 (0-900) /uL Eos # (Auto) 100 (0-450) /uL Baso # (Auto) 100 (0-100) /uL PT TNP INR TNP APTT TNP Sodium 126 L (137-145) mmol/L Potassium 3.3 L (3.4-5.1) mmol/L Chloride 93 L (98-107) mmol/L Carbon Dioxide 24 (22-32) mmol/L BUN 16 (9-20) mg/dL Creatinine 0.86 (0.66-1.25) mg/dL Estimated GFR > 60.0 (>60) mL/min BUN/Creatinine Ratio 18.6 (6-22) Glucose 91 (70-100) mg/dL Calcium 7.8 L (8.4-10.2) mg/dL Total Bilirubin 2.2 H (0.2-1.3) mg/dL AST 375 H (17-59) IU/L ALT 172 H (<50) IU/L Alkaline Phosphatase 313 H (38-126) U/L Total Creatine Kinase 211 H (55-170) U/L CK-MB (CK-2) 2.47 H (<2.37) ng/mL CK-MB (CK-2) Rel Index 1.2 L (1.5-5.0) % Troponin I < 0.012 (0.01-0.034) ng/mL Total Protein 6.3 (6.3-8.2) g/dL Albumin 2.9 L (3.5-5.0) g/dL Globulin 3.4 (1.7-4.1) g/dL Albumin/Globulin Ratio 0.9 L (1.0-2.8) Lipase 57 (23-300) U/L Imaging Data Chest x-ray: Radiologist's Impression: FINDINGS: Surgical changes and devices: None. Lungs and pleura: Lungs are clear. No pleural effusions or pneumothorax. Mediastinum: Mediastinal contours are normal. Heart size is normal. Bones and chest wall: No suspicious bony abnormalities. Soft tissues appear unremarkable. IMPRESSION: No acute cardiopulmonary abnormality Dictated by: Galdino Negro M.D. on 04/29/2020 at 14:00 CT scan - abdomen/pelvis: Radiologist's Impression: FINDINGS: Image quality: Excellent. ABDOMEN: Lung bases: Lung bases are clear. Heart size is normal. Solid organs: Liver is enlarged with steatosis. Gallbladder is unremarkable. Biliary system is non dilated. Pancreas enhances normally. Spleen is normal in size and enhancement. No adrenal nodules. Kidneys demonstrate normal size and enhancement, without hydronephrosis. Peritoneum and bowel: Bowel loops demonstrate normal wall thickness and caliber. No free fluid or air. Appendix is within normal limits. Mild scattered diverticula without visualized inflammatory change. Scattered colonic stool without obstruction. Nodes and vessels: No retroperitoneal or mesenteric adenopathy by size criteria. Aorta and inferior vena cava are normal in size. Miscellaneous: No ventral hernias. PELVIS: Genitourinary: Bladder wall demonstrates a mild appearance of wall thickening. It is incompletely distended. Miscellaneous: No inguinal hernias or adenopathy. Bones: No suspicious bony lesions. No vertebral body compression fractures. L5 pars defect is noted. IMPRESSION: 1. Marked hepatomegaly with steatosis. 2. Diverticulosis. Dictated by: Eliane Salgado M.D. on 04/29/2020 at 17:44 MDM Narrative Medical decision making narrative: 40-year-old gentleman presents with chest and abdominal pain. Chest workup is unremarkable with no evidence of acute coronary syndrome. Abdominal exam is a bit more interesting with significantly elevated bilirubin AST ALT alk-phos. He is also hyponatremic and hypokalemic and experiencing some muscle spasms presumably secondary to this. He stop drinking his usual 5 cocktail drinks a day a couple of days ago and is in mild alcohol withdrawal that may explain the flushing and the labile hypertension. Will begin with a small amount of Ativan, banana bag and will expand workup to include an acute hepatitis panel in the CT scan of the abdomen. 7pm CT scan shows hepatomegaly with steatosis but no surgical abnormalities, dilated biliary ducts or acute pancreatitis. At this time, would like to admit this gentleman for treatment of his symptomatic hyponatremia and hypokalemia and further observation of his hepatic abnormalities and steatosis and pending acute Hepatitis panel. He will benefit from effective management for his mild alcohol withdrawal symptoms. Discharge Plan Departure Patient Disposition: Admitted as Observation Clinical Impression: Hepatitis, Acute hyponatremia, Acute hypokalemia, Hypocalcemia Alcohol withdrawal Qualifiers: Complication of substance-induced condition: uncomplicated Qualified Code(s): F10.230 - Alcohol dependence with withdrawal, uncomplicated
--- NOTE | 2020-04-29 18:02 | DI.CT.S_ITS ---
PROCEDURE: CT ABDOMEN PELVIS W CON INDICATIONS: increased LFTs, abdominal pain TECHNIQUE: After the administration of intravenous contrast, 5 mm thick sections acquired from the diaphragm to the symphysis. 5 mm coronal and sagittal reformats were acquired. For radiation dose reduction, the following was used: automated exposure control, adjustment of mA and/or kV according to patient size. COMPARISON: [facility], CT, CT ABDOMEN PELVIS W CON, 10/29/2018, 16:32. FINDINGS: Image quality: Excellent. ABDOMEN: Lung bases: Lung bases are clear. Heart size is normal. Solid organs: Liver is enlarged with steatosis. Gallbladder is unremarkable. Biliary system is non dilated. Pancreas enhances normally. Spleen is normal in size and enhancement. No adrenal nodules. Kidneys demonstrate normal size and enhancement, without hydronephrosis. Peritoneum and bowel: Bowel loops demonstrate normal wall thickness and caliber. No free fluid or air. Appendix is within normal limits. Mild scattered diverticula without visualized inflammatory change. Scattered colonic stool without obstruction. Nodes and vessels: No retroperitoneal or mesenteric adenopathy by size criteria. Aorta and inferior vena cava are normal in size. Miscellaneous: No ventral hernias. PELVIS: Genitourinary: Bladder wall demonstrates a mild appearance of wall thickening. It is incompletely distended. Miscellaneous: No inguinal hernias or adenopathy. Bones: No suspicious bony lesions. No vertebral body compression fractures. L5 pars defect is noted. IMPRESSION: 1. Marked hepatomegaly with steatosis. 2. Diverticulosis. Dictated by: Eliane Salgado M.D. on 04/29/2020 at 17:44 Approved by: Eliane Salgado M.D. on 04/29/2020 at 17:46
[2020-04-29] MEDS: MAGNESIUM SULFATE 2 GM, FOLIC ACID 1 MG, THIAMINE 100 MG, MULTIVITAMIN 10 ML in SODIUM ... IV ×2 (18:43→22:57)
[2020-04-29] MEDS: LORazepam 2 MG/ML INJ 1 MG IV (18:44)
[2020-04-29] MEDS: LORazepam 0.5 MG TABLET 2 MG PO (19:35)
[2020-04-29 20:24] LABS: COVID19 -Nasal RAPID Negative (Negative)
[2020-04-29] MEDS: MAG HYDROX/ALUM/SIMETH 30 ML UDC PO (21:35)
[2020-04-29] MEDS: MAGNESIUM HYDROXIDE 30 ML UDC PO (21:35)
[2020-04-29] MEDS: THIAMINE 100 MG TABLET PO (22:46)
[2020-04-29] MEDS: ACETAMINOPHEN 325 MG TABLET 650 MG PO (22:46)
[2020-04-29] MEDS: LORazepam 1 MG TABLET 2 MG PO (22:46)
[2020-04-30] VITALS (10 sets, daily range): BP systolic 129–139; BP diastolic 60–99; PULSE 68–83; RESP 15–20; TEMP 36.1–37; O2SAT 95–98
[2020-04-30 04:08] LABS: HBsAg Screen Negative (Negative); Hepatitis A Antibody IgM Negative (Negative); Hepatitis B Core Antibody IgM Negative (Negative); Hepatitis C Antibody <0.1 s/co ratio (0.0-0.9)
[2020-04-30] MEDS: LORazepam 1 MG TABLET 2 MG PO (06:18)
[2020-04-30 06:34] LABS: Alanine Aminotransferase 138 IU/L (<50); Albumin 2.6 g/dL (3.5-5.0); Albumin Globulin Ratio 0.9 (1.0-2.8); Alkaline Phosphatase 228 U/L (38-126); Aspartate Aminotransferase 269 IU/L (17-59); BUN Creatinine Ratio 13.9 (6-22); Bilirubin Total 2.2 mg/dL (0.2-1.3); Blood Urea Nitrogen 10 mg/dL (9-20); Calcium 6.9 mg/dL (8.4-10.2); Carbon Dioxide 28 mmol/L (22-32); Chloride 98 mmol/L (98-107); Estimated Glomerular Filt Rate > 60.0 mL/min (>60); Globulin 2.8 g/dL (1.7-4.1); Glucose 90 mg/dL (70-100); Potassium 3.3 mmol/L (3.4-5.1); Sodium 130 mmol/L (137-145); Total Protein 5.4 g/dL (6.3-8.2)
[2020-04-30 06:44] LABS: Hematocrit 33.5 % (41-53); Hemoglobin 12.2 g/dL (13.5-17.5); Mean Corpuscular Hemoglobin 37.4 PG (26-34); Mean Corpuscular Volume 102.7 fL (80-100); Red Blood Cell Count 3.26 X10^6/uL (4.5-5.9); Red Cell Distribution Width 14.7 % (11.6-14.8); White Blood Cell Count 4.2 X10^3/uL (4.5-11.0)
[2020-04-30 06:46] LABS: Mean Corpuscular HGB Conc 36.4 % (30-36); Platelet Count 89 X10^3/uL (150-400)
[2020-04-30 06:47] LABS: Add Manual Diff / Slide Review YES
[2020-04-30 06:53] LABS: Neutrophils Absolute Manual 1974 /uL (3000-5900); Total Cells Counted 100
[2020-04-30 06:54] LABS: Anisocytosis 1+
--- NOTE | 2020-04-30 08:51 | PM.HP.1 ---
History of Present Illness History of Present Illness Date Patient Seen: 04/30/20 Time Patient Seen: 08:51 Chief complaint: 48-72 hrs of BP problems, chest pain Narrative: 40-year-old gentleman with a history of alcoholism, hypertension, and asthma was admitted from the ED secondary to symptomatic hyponatremia, hypokalemia, and hepatic steatosis. Five days prior to presentation, acutely stopped drinking alcohol, normal intake was approximately 15 oz of liquor daily. Stopped drinking because he has significant right upper quadrant pain that radiated to his chest. Associated shakiness and dark urine. Also complained of bright red blood coating his stools that he attributes to hemorrhoids. He has been constipated. Some nausea in the morning while brushing his teeth, no vomiting. On the day of presentation, he was able to eat troncoso and eggs but appetite was reduced. He has a regular exercise habit and was lifting weights on day of presentation. Vital signs upon admission to the ED included a temperature 97.1?, pulse 72, respirations 12, blood pressure 167/106, and O2 saturation 99% on room air. Workup significant for hepatic steatosis on CT scan, low sodium at 126, low potassium at 3.3, low chloride at 93m elevated liver enzymes with an AST of 375, ALT 172, and ALP of 313. CK total was also elevated at 211 but troponin I was negative at less than 0.012. Albumin low at 2.9, making corrected calcium normal. Patient has had an uneventful night; however he is complaining of ongoing right upper quadrant pain that is 8/10. He is ?eating the food that the hospital gives me.?. Denies any nausea or vomiting. No bowel movement yet, has had milk of magnesia x1. Receiving Ativan per [facility] protocol, symptoms well controlled. Past medical history: Alcoholism Hypertension Asthma, mild intermittent Tobacco dependence Past surgical history: Inguinal hernia Family history: Father: Multiple back surgeries secondary to construction work Mother: Alcoholic, now sober Twin sister: Healthy Son: 8, healthy Social history: Single, girlfriend broke. [employer] Systems [employer]st safely [place]. Some lives with his mother and N[place]omy. Recently stopped drinking, 15 oz daily habit. Cutting back on smoking. THC recreational use. Patient History Medical History (Updated 04/29/20 @ 19:54 by Era Montanez MD) Alcohol use disorder Anxiety Hypertension Family & Social History Family History Mother Hypertension Father Hypertension Social History: household members significant other,children Prior Living Arrangements Apartment/Condo Safety & Behavioral: Feels Safe in Current Yes Environment Been Physically Hurt or No Threatened By a Person Suicidal Ideation Description None Suicide Plan Description No Plan Tobacco & Substance use: Tobacco type cigarettes Smoking Status Current every day smoker Smoking packs per day 0.5 alcohol intake current alcohol intake frequency 3 or more drinks per day Substance Use Type marijuana Meds Home Medications and Allergies Home Medications Medication Instructions Recorded Confirmed Type albuterol sulfate [Ventolin HFA] 1 puff INH PRN PRN #0 05/18/17 04/29/20 History hydrochlorothiazide 12.5 mg PO QDAY #0 05/18/17 04/29/20 History atenolol 50 mg PO DAILY #30 tab 10/29/18 04/29/20 Rx Allergies Allergy/AdvReac Type Severity Reaction Status Date / Time No Known Drug Allergies Allergy Verified 04/29/20 13:28 Review of Systems Review of Systems ROS: Yes All systems reviewed with the patient and are negative except as otherwise documented Exam Vital Signs (past 8 hours): - 04/30/20 06:00 Temperature 98.4 F Pulse Rate 68 Respiratory Rate 16 Blood Pressure 132/88 Pulse Oximetry 97 Oxygen Delivery Method Room Air Oxygen Flow Rate 0 Narrative Exam Narrative: GENERAL: Alert and oriented, appearing stated age and in no acute distress. HEENT: Head normocephalic/atraumatic. Pupils equal, round, and reactive to light and accomodation. Extraocular muscles intact. Tympanic membranes clear. Nasal mucosa moist, septum midline. Oral mucosa moist, no lesions. Neck soft and supple, no lymphadenopathy. LUNGS: Clear to ausculation bilaterally, no wheezes, rhonchi or rales. CV: Normal S1 and S2 with regular rate and rhythm, no audible murmurs, rubs or gallops. ABDOMEN: Mildly distended, very tender in RUQ quadrant, could not tolerate light or deep palpation so could not assess hepatomegaly. Negative fluid wave. Positive bowel sounds. EXTREMITIES: No clubbing, cyanosis, or edema. NEURO: Cranial nerves II through XII grossly intact, no focal deficits. PSYCH: Alert and oriented x 3. SKIN: No concerning lesions. Objective Labs Result Diagrams: 04/30/20 05:43 02/23/21 05:43 Labs: Laboratory Results - last 24 hr 04/29/20 04/29/20 04/29/20 14:05 14:05 14:05 WBC 8.1 RBC 3.81 L Hgb 13.7 Hct 39.1 L MCV 102.7 H MCH 36.1 H MCHC 35.1 RDW 14.7 Plt Count 113 L Neut % (Auto) 66.4 Lymph % (Auto) 27.2 [place] % (Auto) 4.5 Eos % (Auto) 0.9 L Baso % (Auto) 1.0 Neut # (Auto) 5400 Lymph # (Auto) 2200 [place] # (Auto) 400 Eos # (Auto) 100 Baso # (Auto) 100 Total Counted Seg Neutrophils % Lymphocytes % (Manual) Monocytes % (Manual) Eosinophils % (Manual) Neutrophils # (Manual) RBC Morphology Anisocytosis PT TNP INR TNP APTT TNP Sodium 126 L Potassium 3.3 L Chloride 93 L Carbon Dioxide 24 BUN 16 Creatinine 0.86 Estimated GFR > 60.0 BUN/Creatinine Ratio 18.6 Glucose 91 Calcium 7.8 L Magnesium Total Bilirubin 2.2 H AST 375 H ALT 172 H Alkaline Phosphatase 313 H Total Creatine Kinase 211 H CK-MB (CK-2) 2.47 H CK-MB (CK-2) Rel Index 1.2 L Troponin I < 0.012 Total Protein 6.3 Albumin 2.9 L Globulin 3.4 Albumin/Globulin Ratio 0.9 L Lipase 57 SARS-CoV-2 (PCR) Hepatitis A IgM Ab Hep Bs Antigen Hep B Core IgM Ab Hepatitis C Antibody Hep C Ab Signal/Cutoff 04/29/20 04/29/20 04/30/20 14:05 20:07 05:43 WBC RBC Hgb Hct MCV MCH MCHC RDW Plt Count Neut % (Auto) Lymph % (Auto) [place] % (Auto) Eos % (Auto) Baso % (Auto) Neut # (Auto) Lymph # (Auto) [place] # (Auto) Eos # (Auto) Baso # (Auto) Total Counted Seg Neutrophils % Lymphocytes % (Manual) Monocytes % (Manual) Eosinophils % (Manual) Neutrophils # (Manual) RBC Morphology Anisocytosis PT INR APTT Sodium Potassium Chloride Carbon Dioxide BUN Creatinine Estimated GFR BUN/Creatinine Ratio Glucose Calcium Magnesium 2.0 Total Bilirubin AST ALT Alkaline Phosphatase Total Creatine Kinase CK-MB (CK-2) CK-MB (CK-2) Rel Index Troponin I Total Protein Albumin Globulin Albumin/Globulin Ratio Lipase SARS-CoV-2 (PCR) Negative Hepatitis A IgM Ab Negative Hep Bs Antigen Negative Hep B Core IgM Ab Negative Hepatitis C Antibody <0.1 Hep C Ab Signal/Cutoff Comment 04/30/20 04/30/20 05:43 05:43 WBC 4.2 L RBC 3.26 L Hgb 12.2 L Hct 33.5 L MCV 102.7 H MCH 37.4 H MCHC 36.4 H RDW 14.7 Plt Count 89 L Neut % (Auto) Not Reportable Lymph % (Auto) Not Reportable [place] % (Auto) Not Reportable Eos % (Auto) Not Reportable Baso % (Auto) Not Reportable Neut # (Auto) Lymph # (Auto) Not Reportable [place] # (Auto) Not Reportable Eos # (Auto) Baso # (Auto) Not Reportable Total Counted 100 Seg Neutrophils % 47.0 Lymphocytes % (Manual) 45.0 Monocytes % (Manual) 4.0 Eosinophils % (Manual) 4.0 Neutrophils # (Manual) 1974 L RBC Morphology See below Anisocytosis 1+ H PT INR APTT Sodium 130 L Potassium 3.3 L Chloride 98 Carbon Dioxide 28 BUN 10 Creatinine 0.72 Estimated GFR > 60.0 BUN/Creatinine Ratio 13.9 Glucose 90 Calcium 6.9 L Magnesium Total Bilirubin 2.2 H AST 269 H ALT 138 H Alkaline Phosphatase 228 H Total Creatine Kinase CK-MB (CK-2) CK-MB (CK-2) Rel Index Troponin I Total Protein 5.4 L Albumin 2.6 L Globulin 2.8 Albumin/Globulin Ratio 0.9 L Lipase SARS-CoV-2 (PCR) Hepatitis A IgM Ab Hep Bs Antigen Hep B Core IgM Ab Hepatitis C Antibody Hep C Ab Signal/Cutoff Assessment & Plan Assessment & Plan narrative: 1. Hyponatremia, symptomatic -Suspect related to HCTZ use and alcoholism Plan: Have discontinued HCTZ, blood pressures have been stable. [facility] protocol. Trending labs. 2. Hypokalemia, acute Plan: Repleting with IV and oral potassium. Will trend labs. 3. Acute alcohol withdrawal Plan: [facility] protocol. Nutrition referral. 4. Hepatic steatosis with right upper quadrant pain -Hepatitis panel negative. Plan: Will get right upper quadrant ultrasound to better evaluate and INR to calculate MELD score. Possible need for outpatient hepatology referral. The patient has already quit alcohol, interested in AA resources, will have social work connect with him as well to discuss community resources. Will update hepatitis-A/B vaccines in outpatient setting as well as PCV . Morphine prn for his abdominal pain. 5. Protein malnutrition, new, likely secondary to alcoholism Plan: Nutrition consult. 6. Hematochezia likely secondary to constipation and hemorrhoids -BUN WNL Plan: Continue bowel protocol with milk of magnesia and added MiraLax today. In the case patient has a GI bleed, also administering IV Protonix for GI prophylaxis. May need further workup including EGD/colonoscopy but this likely can wait until the outpatient setting as H/H and vital signs stable. 7. Asthma, mild intermittent, chronic Plan: Albuterol as needed 8. Hypertension, chronic Plan: Continue atenolol 50 mg p.o. q.day. Have stopped hydrochlorothiazide secondary to concern for hyponatremia. 9. Tobacco dependece, currently quitting Plan: Has not asked for a patch, will watch closely. Code: Full DVT prophylaxis: SCDs GI prophylaxis: Protonix
--- NOTE | 2020-04-30 09:20 | PT.IIE ---
Medical History (Last Updated 04/29/20 @ 19:53 by Era Montanez MD) Alcohol use disorder Anxiety Hypertension Physical Therapy Inpatient Evaluation/Re-Eval M1 PT/OT-IP Prior Functional Status Start: 04/30/20 12:17 Freq: NEEDED Status: Active Protocol: Document 04/30/20 09:20 AB (Rec: 04/30/20 12:25 AB [id number]) Medical Review Prior Functional Status Medical History Reviewed Yes Communication able to make needs known Mobility and Gait stated that he is independent with all mobilities and ambulation without AD Social History Household Members significant other,children Living Arrangements Apartment/Condo Number of Floors (Floors) Two Floors Number of Stairs To Enter/Railing? 5 steps to enter with B rails 15 steps with B rails to 2nd level bedroom Home Environment High Toilet,Walk in Shower Home Equipment Hand Held Shower,Grab Bars Near Toilet,Grab Bars In Shower M2 PT-IP Current Condition Start: 04/30/20 12:17 Freq: NEEDED Status: Active Protocol: Document 04/30/20 09:20 AB (Rec: 04/30/20 12:25 AB [id number]) Physical Therapy Current Condition Current Condition Evaluation Date 04/30/20 Treatment Diagnosis hepatitis; alcohol w/d; difficulty in walking Onset Date 04/29/20 M3 PT-IP Subjective Start: 04/30/20 12:17 Freq: NEEDED Status: Active Protocol: Document 04/30/20 09:20 AB (Rec: 04/30/20 12:25 AB [id number]) Subjective Physical Therapy Visit Type Type Initial Evaluation Visit Start Time 09:20 Visit Stop Time 09:39 Total Visit Minutes 19 Number of CREDIT ANALYST Visits 0 Physical Therapy Visit Comments Patient Comments pt is agreeable to do PT Therapy Pain Assessment Pain When Pain Assessed At Rest Pain Present Pain Present Pain Reported Location Right Abdomen Intensity 10 Scale Used Numeric (0 - 10) Pain Management Techniques Distraction,Modification of Treatment,Re-positioning, Timing of Activity with Medications M4 PT-IP Mobility and Gait Start: 04/30/20 12:17 Freq: NEEDED Status: Active Protocol: Document 04/30/20 09:20 AB (Rec: 04/30/20 12:25 AB [id number]) PT-Bed Mobility Assessment Supine to Sit Supine to Sit Standby Assistance Sit to Supine Sit to Supine Standby Assistance Scooting Scooting to Edge of Bed Standby Assistance Scooting Up and Down in Bed Standby Assistance PT-Transfer Assessment Sit to and From Stand Sit to and from Stand Standby Assistance Equipment Transfer Assistive Device None,Gait Belt Orthotic/Prosthetic Devices or Brace: No Comments Mobility Comments pt completed supine to sit SBA . able to sit on EOB SBA. ambulated in room without AD ~ 30 ft SBA. pt requested to go back to bed with c/o abdominal pain. completed sit to supine SBA. positioned pt in bed. call light and table placed within reach. Gait Assessment Gait Gait Assistance Required: Standby Assistance Distance (Feet) 30 Able to Maintain Weight Bearing Status Yes During Gait Assistive Devices Assistive Device None,Gait Belt Orthotic/Prosthetic Devices or Brace: No Gait Deviations General Gait Pattern Antalgic,Decreased Stride Length,Decreased Feet Clearance Factors Limiting Gait Function Factors Limiting Gait Function Decreased Activity Tolerance, Decreased Strength,Pain Comments Gait Comments presents with slow courtney PT-Balance Assessment Sitting Balance and Reactions Static Sitting Balance Ability Good Dynamic Sitting Balance Ability Good Standing Balance and Reactions Static Standing Balance Ability Good Dynamic Standing Balance Ability Good Device Used without AD M5 PT-IP Objective Assessments Start: 04/30/20 12:17 Freq: NEEDED Status: Active Protocol: Document 04/30/20 09:20 AB (Rec: 04/30/20 12:25 AB [id number]) Orientation Orientation/Cognition Level of Alertness Alert Orientation Name,Place,Situation Language Function Ability No Deficits Noted Safety Awareness Understands Safety Issues Memory Description No Deficits Noted Gross Range of Motion Lower Extremity ROM Assessment Within Functional Limits Strength Lower Extremity Strength Assessment Within Functional Limits Coordination Assessment Gross Coordination Gross Coordination WNL Sensation Assessment Sensation Gross Sensation WNL Muscle Tone Muscle Tone WNL Yes M6 PT-IP Treatment Start: 04/30/20 12:17 Freq: NEEDED Status: Active Protocol: Document 04/30/20 09:20 AB (Rec: 04/30/20 12:25 AB [id number]) Physical Therapy Treatment Education Education Provided Safety M7 PT-IP Assessment and Plan Start: 04/30/20 12:17 Freq: NEEDED Status: Active Protocol: Document 04/30/20 09:20 AB (Rec: 04/30/20 12:25 AB [id number]) PT Summary Assessment and Plan Potential Rehabilitation Potential Good Status of Condition at Evaluation Stable Summary Impairments Pain,ROM,Strength,Balance,Bed Mobility,Transfers,Gait, Activity Tolerance Assessment Summary pt requiring SBA with mobility but has decrease activity tolerance affecting independence. c/o abdominal pain affecting mobility. pt plans to go home and family to assist him. will continue to assess progress and will conduct stair climbing training when appropriate. Goals Bed Mobility Goal Independent Transfer Goal Independent Gait Goal Independent Gait Distance 300 Other Goals up/down 15 steps B rails mod I Days to Meet Goals 5 Frequency of Treatment Frequency Of Treatment Once a Day Treatment Plan Physical Therapy Treatment Plan Bed Mobility Training,Transfer Training,Gait Training, Therapeutic Exercise,Balance Retraining,Discharge Planning, Neuromuscular Re-ed, Coordination Retraining Recommendations To Nursing Amount of Assist Needed Standby Assistance Discharge Recommendations PT Discharge Recommendations Home with Assistance Transportation Needs at Discharge Private Vehicle
[2020-04-30] MEDS: atenoloL 50 MG TABLET PO (09:24)
[2020-04-30] MEDS: FOLIC ACID 1 MG TABLET PO (09:24)
[2020-04-30] MEDS: MULTIVITAMIN 1 TABLET 1 TAB PO (09:24)
[2020-04-30] MEDS: THIAMINE 100 MG TABLET PO (09:24)
[2020-04-30] MEDS: POTASSIUM CHLORIDE 40 MEQ in SODIUM CHLORIDE 0.9% 500 ML 130 ML IV (09:50)
[2020-04-30] MEDS: ACETAMINOPHEN 325 MG TABLET 650 MG PO (09:50)
--- NOTE | 2020-04-30 10:41 | CM.DANOTE ---
DCP: Case received, EMR reviewed and met with patient. Introduced self and role. Was able to obtain information from patient regarding his baseline activity level prior to hospitalization. DCP assessment completed with information currently available. Patient is a 40 year old male who admitted yesterday evening to the care of the hospitalist team. PCP: Dr. Newsome. Payer: confirmed: [facility]. Patient came to the hospital via private vehicle secondary to having blood pressure issues, as well as some chest discomfort. Patient holds diagnosis of hepatomegaly, Acute Pancreatitis. Patient has history of alcohol use, approximately 5 cocktails a day. Met with patient in his room. He was sitting up in bed, flat effect. He is independent at baseline, he resides in [place] with his significant other, Sumaya Munoz. Discussed his drinking and asked him if he was attempting to cut back. Stated, he went cold turkey on Wednesday, and has been feeling shaky ever since. Asked him if he was interested in any resources, he didn't state at the time if he was, but let him know that they can be provided at discharge. He is currently on CIWA. P: DCP to continue to follow and will be available for any resources needed. At this time, home is the plan, and will be available if patient needs any resources regarding his alcohol use. Nury Henry RN/Needle Punch Machine Operator Helper
[2020-04-30] MEDS: MORPHINE 2 MG/ML INJ IV ×4 (12:39→20:21)
--- NOTE | 2020-04-30 12:57 | DI.US.S_ITS ---
PROCEDURE: US ABDOMEN COMPLETE INDICATIONS: hepatomegaly, alcoholism, elevated LFTs, RUQ pain TECHNIQUE: Real-time scanning was performed of the abdominal and retroperitoneal organs, with image documentation. COMPARISON: [facility], CT, CT ABDOMEN PELVIS W CON, 04/29/2020, 18:27. FINDINGS: Liver: Liver is enlarged and demonstrates increased echotexture. Portal vein is prominent in caliber and demonstrates hepatopetal flow. Gallbladder: No gallstones. No gallbladder wall thickening, pericholecystic fluid or sonographic Gonsalez's sign. Biliary ducts: Intrahepatic bile ducts are non-dilated. Extrahepatic bile duct caliber measures 3.1 mm. Normal is 6-7 mm or less in diameter, or 10 mm or less post-cholecystectomy. Pancreas: Visualized portions of the pancreas are sonographically normal. Spleen: Spleen is normal in size and homogeneous in echotexture. Kidneys: Kidneys are normal in size and echotexture. Right kidney measures 11.7 cm long; left kidney measures 12.3 cm long. No hydronephrosis or nephrolithiasis. No solid masses. Aorta: Visualized aorta is normal in caliber at less than 3 cm. Iliacs: Proximal common iliac arteries are normal in caliber at less than 2.5 cm. IVC: Intrahepatic inferior vena cava is patent. Miscellaneous: No free abdominal fluid. IMPRESSION: 1. Hepatomegaly. Diffusely increased hepatic echotexture. This finding is most likely secondary to hepatic fatty infiltration although other hepatocellular disease may have a similar appearance. Recommend clinical correlation. 2. Normal gallbladder. No gallstones. Dictated by: Saad Chiang M.D. on 04/30/2020 at 17:27 Approved by: Saad Chiang M.D. on 04/30/2020 at 17:30
[2020-04-30] MEDS: polyethylene glycoL 3350 17 GM POWD.PACK PO (13:21)
[2020-04-30] MEDS: PANTOPRAZOLE 40 MG VIAL IV ×2 (13:21→20:18)
--- NOTE | 2020-04-30 14:44 | PC.NURSE ---
VSS. 8/10 RUQ pain, PRN tylenol did not help relieve pain. Provider ordered PRN morphine 2mg PRN q 2 hours. Gave morphine at 12:39 which provided relief, 3/10 pain. Patient is SBA in his room. Full liquid diet. Urgent abdominal ultrasound ordered. Potassium 3.3, K rider ordered and given at 09:50. CIWA score: 0. Patient's mother discussed concern for son over the phone and hope that he will go into either an inpatient alcoholic program or receive some sort of help. Patient agreed he is interested in treatment and would like help in that process.This flex o writer operator spoke to care management so that the care team is all on the same page with this patient's desire to seek treatment once discharged.
[2020-04-30] MEDS: POTASSIUM CHLORIDE 20 MEQ TAB 40 MEQ PO (16:18)
[2020-05-01] MEDS: MORPHINE 2 MG/ML INJ IV ×4 (00:38→16:28)
[2020-05-01 05:00] VITALS: BP 145/103; PULSE 80; RESP 18; TEMP 36.6; O2SAT 97
[2020-05-01 06:22] LABS: Alanine Aminotransferase 105 IU/L (<50); Albumin 2.7 g/dL (3.5-5.0); Albumin Globulin Ratio 0.9 (1.0-2.8); Alkaline Phosphatase 160 U/L (38-126); Aspartate Aminotransferase 216 IU/L (17-59); Bilirubin Total 2.1 mg/dL (0.2-1.3); Blood Urea Nitrogen 3 mg/dL (9-20); Calcium 7.5 mg/dL (8.4-10.2); Carbon Dioxide 30 mmol/L (22-32); Chloride 106 mmol/L (98-107); Estimated Glomerular Filt Rate > 60.0 mL/min (>60); Glucose 90 mg/dL (70-100); Magnesium 1.7 mg/dL (1.6-2.3); Potassium 4.5 mmol/L (3.4-5.1); Sodium 136 mmol/L (137-145); Total Protein 5.7 g/dL (6.3-8.2)
[2020-05-01 06:30] LABS: HEMOLYSIS 150 (0-50)
[2020-05-01 06:32] LABS: Hemoglobin 11.5 g/dL (13.5-17.5); Mean Corpuscular Hemoglobin 34.7 PG (26-34); Mean Corpuscular Volume 102.9 fL (80-100); Platelet Count 85 X10^3/uL (150-400); Red Cell Distribution Width 15.4 % (11.6-14.8); White Blood Cell Count 4.1 X10^3/uL (4.5-11.0)
[2020-05-01 06:35] LABS: Add Manual Diff / Slide Review YES; Mean Corpuscular HGB Conc 33.7 % (30-36)
[2020-05-01 06:52] LABS: Neutrophils Absolute Manual 1968 /uL (3000-5900); Total Cells Counted 100
[2020-05-01 06:53] LABS: Platelet Morphology Comment 1+ GIANT PLATELETS; RBC Morphology Normal Morphology
--- NOTE | 2020-05-01 08:31 | PM.PN.1 ---
Subjective Subjective Date Patient Seen: 05/01/20 Time Patient Seen: 08:32 Interval history: Feeling better this morning. Denies nausea and has an appetite, eating a sandwich. Participated in PT this morning, afterwards thought that he might have a BM but nothing came out. Did have MOM of this am and miralax yesterday. Has not had ativan since ED, CIWA scores low. Abdominal pain improved but still requiring morphine every 2 hours. His mother is a sober alcoholic and is supporting him with getting an AA sponsor; SW has been by to discuss local resources as well. Exam Vital Signs (past 8 hours): - 05/01/20 05:00 Temperature 97.9 F Pulse Rate 80 Respiratory Rate 18 Blood Pressure 145/103 H Pulse Oximetry 97 Oxygen Delivery Method Room Air Oxygen Flow Rate 0 Narrative Exam Narrative: GENERAL: Alert and oriented, appearing stated age and in no acute distress. HEENT: Head normocephalic/atraumatic. LUNGS: Clear to ausculation bilaterally, no wheezes, rhonchi or rales. CV: Normal S1 and S2 with regular rate and rhythm, no audible murmurs, rubs or gallops. ABDOMEN: Mildly distended, mild tenderness in RUQ quadrant, hepaomegaly. Negative fluid wave. Positive bowel sounds. EXTREMITIES: No clubbing, cyanosis, or edema. NEURO: Cranial nerves II through XII grossly intact, no focal deficits. PSYCH: Alert and oriented x 3. SKIN: No concerning lesions. Objective Labs Result Diagrams: 05/01/20 05:44 05/01/20 05:44 Labs: Laboratory Results - last 24 hr 05/01/20 05/01/20 05/01/20 05:44 05:44 05:44 WBC 4.1 L RBC 3.30 L Hgb 11.5 L Hct 34.0 L MCV 102.9 H MCH 34.7 H MCHC 33.7 RDW 15.4 H Plt Count 85 L Neut % (Auto) Not Reportable Lymph % (Auto) Not Reportable Hardeman % (Auto) Not Reportable Eos % (Auto) Not Reportable Baso % (Auto) Not Reportable Lymph # (Auto) Not Reportable Hardeman # (Auto) Not Reportable Baso # (Auto) Not Reportable Total Counted 100 Seg Neutrophils % 48.0 Lymphocytes % (Manual) 41.0 Monocytes % (Manual) 6.0 Eosinophils % (Manual) 5.0 H Neutrophils # (Manual) 1968 L Plt Morphology Comment 1+ giant platelets RBC Morphology Normal morphology PT TNP INR TNP Sodium 136 L Potassium 4.5 D Chloride 106 Carbon Dioxide 30 BUN 3 L Creatinine 0.60 L Estimated GFR > 60.0 BUN/Creatinine Ratio 5.0 L Glucose 90 Calcium 7.5 L Magnesium 1.7 Total Bilirubin 2.1 H AST 216 H ALT 105 H Alkaline Phosphatase 160 H Total Protein 5.7 L Albumin 2.7 L Globulin 3.0 Albumin/Globulin Ratio 0.9 L [facility] Medical History (Updated 04/29/20 @ 19:54 by Era Montanez MD) Alcohol use disorder Anxiety Hypertension Family History Mother Hypertension Father Hypertension Social History marital status: unmarried,living together household members: significant other and children occupational status: employed Smoking Status: Current every day smoker alcohol intake: current substance use type: does not use Assessment & Plan Assessment & Plan narrative: 1. Hyponatremia, symptomatic, improved -Suspect related to HCTZ use and alcoholism Plan: Have discontinued HCTZ, blood pressures have trended up overnight. Will increase atenolol from 50 to 75 mg PO qd. Continue CIWA protocol. Trending labs. 2. Hypokalemia, acute, resolved Plan: René hold potassium today and trend labs. 3. Acute alcohol withdrawal Plan: CIWA protocol. Nutrition consulting. 4. Hepatic steatosis with right upper quadrant pain -Hepatitis panel negative. -US showed fatty liver disease rather than cirrhosis -Liver enzymes still high but trending down. Plan: INR not able to calculated due to cholesterol in blood, will check FLP, possible need for statin prior to discharge. US reassuring for reversible disease with alcohol cessation. Plan for AA and counseling upon discharge. Will update hepatitis-A/B vaccines in outpatient setting as well as PCV . Weaning IV morphine today in favor of oral tylenol prn for his abdominal pain. 5. Protein malnutrition, new, likely secondary to alcoholism Plan: Nutrition consulting. 6. Hematochezia likely secondary to constipation and hemorrhoids -BUN WNL Plan: Continue bowel protocol with milk of magnesia and will double MiraLax dose today. In the case patient has a GI bleed, also administering IV Protonix for GI prophylaxis. May need further workup including EGD/colonoscopy but this likely can wait until the outpatient setting as H/H and vital signs remain stable. 7. Asthma, mild intermittent, chronic Plan: Albuterol as needed. 8. Hypertension, chronic -Holding HCTZ due to hyponatremia. Plan: Increasing atenolol from 50 to 75 mg p.o. q.day. 9. Tobacco dependece, currently quitting Plan: Has not asked for a patch, will watch closely. Code: Full DVT prophylaxis: SCDs GI prophylaxis: Protonix Disposition: Anticipate discharge to home tomorrow.
[2020-05-01 08:37] VITALS: BP 144/98; PULSE 88; RESP 17; TEMP 36.5; O2SAT 97
[2020-05-01] MEDS: THIAMINE 100 MG TABLET PO (08:56)
[2020-05-01] MEDS: FOLIC ACID 1 MG TABLET PO (08:56)
[2020-05-01] MEDS: PANTOPRAZOLE 40 MG VIAL IV (08:56)
[2020-05-01] MEDS: MULTIVITAMIN 1 TABLET 1 TAB PO (08:56)
[2020-05-01] MEDS: atenoloL 50 MG TABLET PO (08:56)
[2020-05-01] MEDS: POTASSIUM CHLORIDE 20 MEQ TAB 40 MEQ PO (08:56)
[2020-05-01 09:00] VITALS: O2SAT 97
[2020-05-01] MEDS: MAGNESIUM HYDROXIDE 30 ML UDC PO (09:47)
--- NOTE | 2020-05-01 10:34 | PT.IPTN ---
Physical Therapy Treatment Note M2 PT-IP Current Condition Start: 04/30/20 12:17 Freq: NEEDED Status: Active Protocol: Document 04/30/20 09:20 AB (Rec: 04/30/20 12:25 AB [id number]) Physical Therapy Current Condition Current Condition Evaluation Date 04/30/20 Treatment Diagnosis hepatitis; alcohol w/d; difficulty in walking Onset Date 04/29/20 M3 PT-IP Subjective Start: 04/30/20 12:17 Freq: NEEDED Status: Active Protocol: Document 05/01/20 10:26 SP (Rec: 05/01/20 12:30 SP [id number]) Subjective Physical Therapy Visit Type Type Treatment Note Visit Start Time 10:26 Visit Stop Time 10:34 Total Visit Minutes 8 Notes KULWANT Govea attended tx, observation only. Number of EXTRACTOR MACHINE OPERATOR Visits 1 Physical Therapy Visit Comments Patient Comments Pt agreed to work with therapy . Patient Goals To return home with family to assist him if needed. Therapy Pain Assessment Pain When Pain Assessed During Mobility Pain Present Pain Present Pain Reported Location Right Abdomen Intensity 6 Scale Used Numeric (0 - 10) Pain Management Techniques Re-positioning,Timing of Activity with Medications M4 PT-IP Mobility and Gait Start: 04/30/20 12:17 Freq: NEEDED Status: Active Protocol: Document 05/01/20 10:26 SP (Rec: 05/01/20 12:30 SP [id number]) PT-Bed Mobility Assessment Rolling Type of Rolling Log Rolling,Bilateral Level of Assist Independent Supine to Sit Supine to Sit Independent Sit to Supine Sit to Supine Independent Scooting Scooting to Edge of Bed Independent Scooting Up and Down in Bed Independent PT-Transfer Assessment Sit to and From Stand Sit to and from Stand Independent Equipment Transfer Assistive Device None,Gait Belt Orthotic/Prosthetic Devices or Brace: No Transfers Transfer Destination Bed Transfer Technique pt ambulated with no AD. Transfer Ability Level of Assist Independent Comments Mobility Comments Pt was walking around room when arrived, stable, no AD. Pt I sitting onto bed, completed supine> sitting I with use of UEs for support needed. Sit<>stand I and stable. Pt proceeded ambulate into hallway appro 280 ft total with no AD required, gait belt donned for safety and willingness post education of hospital policy. Pt was able to ascend/descend full stair case from 2nd to 1st level and back to top SBA using R HR step over step. Once at the top pt stated felt little dizzy, recovered quickly within 1 min then complete walking around nursing station and back to room, stable SBA. Gait Assessment Gait Gait Assistance Required: Standby Assistance Distance (Feet) 280 Able to Maintain Weight Bearing Status Yes During Gait Assistive Devices Assistive Device None,Gait Belt Orthotic/Prosthetic Devices or Brace: No Gait Deviations General Gait Pattern Within Normal Limits Factors Limiting Gait Function Factors Limiting Gait Function Decreased Strength,Pain, Respiratory Distress Comments Gait Comments Pt had normal stable courtney and arm swing. Provided SBA cued for slow pacing control for energy conservation which assisted with reducing mild SOB. No deviations or LOB. Stair Climbing Assessment Evaluation Level of Assist On Stairs Standby Assistance Devices Stair Climbing Assistive Devices Right Railing Technique/Endurance Stair Climbing Direction Ascend and Descend Stair Climbing Technique Step Over Step Number of Steps Climbed 25 Stair Climbing Set # Repetitions (reps) 1 Comments Stair Climbing Comments Ascend/descend full flights of stairs from 2nd to 1st level of hospital usign R HR step over step SBA with no deviations or LOB. Pt commented little SOB and dizzy when completed, required 2 min standing rest for recovery and contact HR for self safety. PT-Balance Assessment Sitting Balance and Reactions Static Sitting Balance Ability Normal Dynamic Sitting Balance Ability Normal Standing Balance and Reactions Static Standing Balance Ability Normal Dynamic Standing Balance Ability Good Device Used without AD M5 PT-IP Objective Assessments Start: 04/30/20 12:17 Freq: NEEDED Status: Active Protocol: Document 04/30/20 09:20 AB (Rec: 04/30/20 12:25 AB [id number]) Orientation Orientation/Cognition Level of Alertness Alert Orientation Name,Place,Situation Language Function Ability No Deficits Noted Safety Awareness Understands Safety Issues Memory Description No Deficits Noted Gross Range of Motion Lower Extremity ROM Assessment Within Functional Limits Strength Lower Extremity Strength Assessment Within Functional Limits Coordination Assessment Gross Coordination Gross Coordination WNL Sensation Assessment Sensation Gross Sensation WNL Muscle Tone Muscle Tone WNL Yes M6 PT-IP Treatment Start: 04/30/20 12:17 Freq: NEEDED Status: Active Protocol: Document 05/01/20 10:26 SP (Rec: 05/01/20 12:30 SP [id number]) Physical Therapy Treatment Education Education Provided Safety M7 PT-IP Assessment and Plan Start: 04/30/20 12:17 Freq: NEEDED Status: Active Protocol: Document 05/01/20 10:26 SP (Rec: 05/01/20 12:30 SP [id number]) PT Summary Assessment and Plan Potential Rehabilitation Potential Good Status of Condition at Evaluation Stable Summary Impairments Pain,ROM,Strength,Balance,Bed Mobility,Transfers,Gait, Activity Tolerance Progress Towards Goals Progressing Toward Goals,Slow Progress due to Medical Issues Assessment Summary Pt is I for bed mobility, transfers and gait in room, requires SBA with patient in agreement during gait in hallway due to moderate abdominal pain, noted SOB and occasional reports of dizziness for safety. EXTRACTOR MACHINE OPERATOR discussed with patient and nursing patient not requiring skilled PT services and in agreement is being discharged from PT with nursing to provide SBA during gait in hallway when requests until medically cleared to DC home. Pt plans to go home and family to assist him. Goals Bed Mobility Goal Independent Transfer Goal Independent Gait Goal Independent Gait Distance 300 Other Goals up/down 15 steps B rails mod I Days to Meet Goals 5 Frequency of Treatment Frequency Of Treatment Once a Day Treatment Plan Physical Therapy Treatment Plan Bed Mobility Training,Transfer Training,Gait Training, Therapeutic Exercise,Balance Retraining,Discharge Planning, Neuromuscular Re-ed, Coordination Retraining Recommendations To Nursing Amount of Assist Needed Standby Assistance Discharge Recommendations PT Discharge Recommendations Home with Assistance Transportation Needs at Discharge Private Vehicle
--- NOTE | 2020-05-01 10:34 | PT.IPTN ---
Physical Therapy Treatment Note M2 PT-IP Current Condition Start: 04/30/20 12:17 Freq: NEEDED Status: Active Protocol: Document 04/30/20 09:20 AB (Rec: 04/30/20 12:25 AB [id number]) Physical Therapy Current Condition Current Condition Evaluation Date 04/30/20 Treatment Diagnosis hepatitis; alcohol w/d; difficulty in walking Onset Date 04/29/20 M3 PT-IP Subjective Start: 04/30/20 12:17 Freq: NEEDED Status: Active Protocol: Document 05/01/20 10:26 SP (Rec: 05/01/20 12:30 SP [id number]) Subjective Physical Therapy Visit Type Type Treatment Note Visit Start Time 10:26 Visit Stop Time 10:34 Total Visit Minutes 8 Notes KULWANT Govea attended tx, observation only. Number of BRAND REPRESENTATIVE Visits 1 Physical Therapy Visit Comments Patient Comments Pt agreed to work with therapy . Patient Goals To return home with family to assist him if needed. Therapy Pain Assessment Pain When Pain Assessed During Mobility Pain Present Pain Present Pain Reported Location Right Abdomen Intensity 6 Scale Used Numeric (0 - 10) Pain Management Techniques Re-positioning,Timing of Activity with Medications M4 PT-IP Mobility and Gait Start: 04/30/20 12:17 Freq: NEEDED Status: Active Protocol: Document 05/01/20 10:26 SP (Rec: 05/01/20 12:30 SP [id number]) PT-Bed Mobility Assessment Rolling Type of Rolling Log Rolling,Bilateral Level of Assist Independent Supine to Sit Supine to Sit Independent Sit to Supine Sit to Supine Independent Scooting Scooting to Edge of Bed Independent Scooting Up and Down in Bed Independent PT-Transfer Assessment Sit to and From Stand Sit to and from Stand Independent Equipment Transfer Assistive Device None,Gait Belt Orthotic/Prosthetic Devices or Brace: No Transfers Transfer Destination Bed Transfer Technique pt ambulated with no AD. Transfer Ability Level of Assist Independent Comments Mobility Comments Pt was walking around room when arrived, stable, no AD. Pt I sitting onto bed, completed supine> sitting I with use of UEs for support needed. Sit<>stand I and stable. Pt proceeded ambulate into hallway appro 280 ft total with no AD required, gait belt donned for safety and willingness post education of hospital policy. Pt was able to ascend/descend full stair case from 2nd to 1st level and back to top SBA using R HR step over step. Once at the top pt stated felt little dizzy, recovered quickly within 1 min then complete walking around nursing station and back to room, stable SBA. Gait Assessment Gait Gait Assistance Required: Standby Assistance Distance (Feet) 280 Able to Maintain Weight Bearing Status Yes During Gait Assistive Devices Assistive Device None,Gait Belt Orthotic/Prosthetic Devices or Brace: No Gait Deviations General Gait Pattern Within Normal Limits Factors Limiting Gait Function Factors Limiting Gait Function Decreased Strength,Pain, Respiratory Distress Comments Gait Comments Pt had normal stable courtney and arm swing. Provided SBA cued for slow pacing control for energy conservation which assisted with reducing mild SOB. No deviations or LOB. Stair Climbing Assessment Evaluation Level of Assist On Stairs Standby Assistance Devices Stair Climbing Assistive Devices Right Railing Technique/Endurance Stair Climbing Direction Ascend and Descend Stair Climbing Technique Step Over Step Number of Steps Climbed 25 Stair Climbing Set # Repetitions (reps) 1 Comments Stair Climbing Comments Ascend/descend full flights of stairs from 2nd to 1st level of hospital usign R HR step over step SBA with no deviations or LOB. Pt commented little SOB and dizzy when completed, required 2 min standing rest for recovery and contact HR for self safety. PT-Balance Assessment Sitting Balance and Reactions Static Sitting Balance Ability Normal Dynamic Sitting Balance Ability Normal Standing Balance and Reactions Static Standing Balance Ability Normal Dynamic Standing Balance Ability Good Device Used without AD M5 PT-IP Objective Assessments Start: 04/30/20 12:17 Freq: NEEDED Status: Active Protocol: Document 04/30/20 09:20 AB (Rec: 04/30/20 12:25 AB [id number]) Orientation Orientation/Cognition Level of Alertness Alert Orientation Name,Place,Situation Language Function Ability No Deficits Noted Safety Awareness Understands Safety Issues Memory Description No Deficits Noted Gross Range of Motion Lower Extremity ROM Assessment Within Functional Limits Strength Lower Extremity Strength Assessment Within Functional Limits Coordination Assessment Gross Coordination Gross Coordination WNL Sensation Assessment Sensation Gross Sensation WNL Muscle Tone Muscle Tone WNL Yes M6 PT-IP Treatment Start: 04/30/20 12:17 Freq: NEEDED Status: Active Protocol: Document 05/01/20 10:26 SP (Rec: 05/01/20 12:30 SP [id number]) Physical Therapy Treatment Education Education Provided Safety M7 PT-IP Assessment and Plan Start: 04/30/20 12:17 Freq: NEEDED Status: Active Protocol: Document 05/01/20 10:26 SP (Rec: 05/01/20 12:30 SP [id number]) PT Summary Assessment and Plan Potential Rehabilitation Potential Good Status of Condition at Evaluation Stable Summary Impairments Pain,ROM,Strength,Balance,Bed Mobility,Transfers,Gait, Activity Tolerance Progress Towards Goals Progressing Toward Goals,Slow Progress due to Medical Issues Assessment Summary Pt is I for bed mobility, transfers and gait in room, requires SBA with patient in agreement during gait in hallway due to moderate abdominal pain, noted SOB and occasional reports of dizziness for safety. BRAND REPRESENTATIVE discussed with patient and nursing patient not requiring skilled PT services and in agreement is being discharged from PT with nursing to provide SBA during gait in hallway when requests until medically cleared to DC home. BRAND REPRESENTATIVE communicated with supervising PT, pt meeting independence for bed mobility and transfer with no AD and SBA for stair mgt and gait hallway distances for safety with report of occasional dizziness. BRAND REPRESENTATIVE discussed with supervising PT pt's progress and in agreement will discharge pt from skilled PT services. Pt plans to go home and family to assist him when medically cleared. Goals Bed Mobility Goal Independent Transfer Goal Independent Gait Goal Independent Gait Distance 300 Other Goals up/down 15 steps B rails mod I Days to Meet Goals 5 Frequency of Treatment Frequency Of Treatment Once a Day Treatment Plan Physical Therapy Treatment Plan Bed Mobility Training,Transfer Training,Gait Training, Therapeutic Exercise,Balance Retraining,Discharge Planning, Neuromuscular Re-ed, Coordination Retraining Recommendations To Nursing Amount of Assist Needed Standby Assistance Discharge Recommendations PT Discharge Recommendations Home with Assistance Transportation Needs at Discharge Private Vehicle
[2020-05-01 12:46] VITALS: BP 146/94; PULSE 80; RESP 16; TEMP 36.7; O2SAT 98
--- NOTE | 2020-05-01 12:55 | PT.IPTN ---
Physical Therapy Treatment Note M2 PT-IP Current Condition Start: 04/30/20 12:17 Freq: NEEDED Status: Active Protocol: Document 04/30/20 09:20 AB (Rec: 04/30/20 12:25 AB [id number]) Physical Therapy Current Condition Current Condition Evaluation Date 04/30/20 Treatment Diagnosis hepatitis; alcohol w/d; difficulty in walking Onset Date 04/29/20 M3 PT-IP Subjective Start: 04/30/20 12:17 Freq: NEEDED Status: Active Protocol: Document 05/01/20 12:53 AB (Rec: 05/01/20 12:55 AB [id number]) Subjective Physical Therapy Visit Type Type Administrative Note Notes ENVIRONMENTAL SUSTAINABILITY MANAGER informed PT regarding pt's mobility and SBA with nurse's for long distance ambulation needed only for safety reasons but pt is able to mobility independently in room. Pt to be discharged from PT. M7 PT-IP Assessment and Plan Start: 04/30/20 12:17 Freq: NEEDED Status: Active Protocol: Document 05/01/20 12:53 AB (Rec: 05/01/20 12:55 AB [id number]) PT Summary Assessment and Plan Frequency of Treatment Frequency Of Treatment Discharge Discharge Recommendations PT Discharge Recommendations Home with Assistance Transportation Needs at Discharge Private Vehicle
[2020-05-01] MEDS: ACETAMINOPHEN 325 MG TABLET 650 MG PO (13:48)
--- NOTE | 2020-05-01 14:17 | CM.DPC ---
DCP Cont: Per MD, pt has some ongoing electrolyte imbalances and will remain today but likely ready for d/c home tomrrow Thurs. Per PT, pt has ambulated the halls 30 feet independently and discharged from PT/OT and safe for d/c home when stable. SW met bedside with pt and explained role and pt confirms that he feels so much better than when he was admitted. Pt confirms that he has a hx of utilizing AA meetings for sobriety support but denies any formal ETOH treatment. Pt states he has a very good supportive friend in [place] that attends the [place] [facility] meetings and is willing to attend meetings with the pt upon discharge from the hospital. Pt prefers to have his care in [place] even though he lives in [place] and plans to utilize supportive services in [facility] as well rather than [facility]. Pt's ex and his child also live near [place] as well as his mother [place] who is supportive. SW provided the [facility] contact number to patient to determine [facility] contracted providers locally as well as the private insurance outpt ETOH tx providers like [facility], [facility], [facility], etc.. as other resource options. Pt very appreciative and motivated to utilize his informal supports in the community as well as have outpt tx options available. Pt states he has a good friend to give him a ride at d/c when he is stable for discharge and no further needs at this time. Plan: SW to follow for likely d/c tomorrow home via friend POV if medically stable and pt has outpt ETOH resources for follow up after d/c. MIGUEL Brown
[2020-05-01] MEDS: atenoloL 25 MG TABLET PO (14:32)
[2020-05-01 15:00] VITALS: O2SAT 96
--- NOTE | 2020-05-01 15:22 | PM.DS.1 ---
History of Present Illness History of Present Illness Date Patient Seen: 05/01/20 Time Patient Seen: 15:22 Chief complaint: 48-72 hrs of BP problems, chest pain Narrative: 40-year-old gentleman with a history of alcoholism, hypertension, and asthma was admitted from the ED secondary to symptomatic hyponatremia, hypokalemia, and hepatic steatosis. Five days prior to presentation, acutely stopped drinking alcohol, normal intake was approximately 15 oz of liquor daily. Stopped drinking because he has significant right upper quadrant pain that radiated to his chest. Associated shakiness and dark urine. Also complained of bright red blood coating his stools that he attributes to hemorrhoids. He has been constipated. Some nausea in the morning while brushing his teeth, no vomiting. On the day of presentation, he was able to eat troncoso and eggs but appetite was reduced. He has a regular exercise habit and was lifting weights on day of presentation. Vital signs upon admission to the ED included a temperature 97.1?, pulse 72, respirations 12, blood pressure 167/106, and O2 saturation 99% on room air. Workup significant for hepatic steatosis on CT scan, low sodium at 126, low potassium at 3.3, low chloride at 93m elevated liver enzymes with an AST of 375, ALT 172, and ALP of 313. CK total was also elevated at 211 but troponin I was negative at less than 0.012. Albumin low at 2.9, making corrected calcium normal. Patient has had an uneventful night; however he is complaining of ongoing right upper quadrant pain that is 8/10. He is ?eating the food that the hospital gives me.?. Denies any nausea or vomiting. No bowel movement yet, has had milk of magnesia x1. Receiving Ativan per CIWA protocol, symptoms well controlled. Discharge Providers Provider Date of admission: 04/29/20 19:54 Discharge Date: 05/01/20 Primary care physician: Gin Newsome MD Consults: 04/29/20 21:05 Consult to Dietitian, Adult Routine Comment: Reason For Exam: etoh withdrawl Consult to Physical Therapy Evaluate & Treat Comment: Physician Instructions: Evaluate and Treat Discharge provider: Gin Newsome MD Summary Hospital Course Discharge Diagnosis: 1. Hyponatremia, symptomatic, improved 2. Hypokalemia, acute, resolved 3. Acute alcohol withdrawal, resolved 4. Hepatic steatosis with right upper quadrant pain 5. Protein malnutrition, new, likely secondary to alcoholism 6. Hematochezia likely secondary to constipation and hemorrhoids 7. Asthma, mild intermittent, chronic 8. Hypertension, chronic 9. Tobacco dependece, currently quitting Hospital Course: Patient was admitted for symptomatic hyponatremia, hypokalemia, and acute alcoholic staeatohepatitis. He received ativan x 2 in the ED but for the remainder of his stay, his CIWA scores were low and he did not require any further ativan. After discontinuation of his hydrochlorothiazide and supporitve care, his sodium trended towards normal. Potassium was repleted. His main complaint was his RUQ pain that was treated with IV morhpine and later oral tylenol. Cardiac rule out was negative. Due to stopping the HCTZ, atenolol was increased from 50 to 75 mg daily. Liver enzymes trended down each day. An incidental finding of giant platelets was noted on his peripherpal smear. On day of discharge, he was afebrile with stable vital signs throughout. He plans to maintain his sobriety with AA. He will need follow-up in 1 week, treatment plan to include: 1. Repeat CBC with manual differential to check platelets 2. Repeat CMP to ensure electrolytes and LFTs are at baseline. 3. Hep A/B and PCV 13/23 immunizations. 4. Blood pressure check, possible need for atenolol titration. 5. Symptoms of constipation and any further hematochezia, possible need for EGD/colonosocpy as an outpatient. 6. Discussion of PPI use x 6 weeks, then taper. 7. FLP check. 8. AA and social support network. Time spent on Discharge and Coordination of post-hospital care: 35 minutes Status at Discharge Cognitive/behavioral status at discharge: at baseline, oriented Overall status at discharge: patient is progressing back to baseline Exam Vital Signs (past 8 hours): - 05/01/20 08:37 05/01/20 09:00 05/01/20 12:46 Temperature 97.7 F 98.1 F Pulse Rate 88 80 Respiratory Rate 17 16 Blood Pressure 144/98 H 146/94 H Pulse Oximetry 97 97 98 Oxygen Delivery Method Room Air Oxygen Flow Rate 0 Narrative Exam Narrative: GENERAL: Alert and oriented, appearing stated age and in no acute distress. HEENT: Head normocephalic/atraumatic. LUNGS: Clear to ausculation bilaterally, no wheezes, rhonchi or rales. CV: Normal S1 and S2 with regular rate and rhythm, no audible murmurs, rubs or gallops. ABDOMEN: Mildly distended, mild tenderness in RUQ quadrant, hepaomegaly. Negative fluid wave. Positive bowel sounds. EXTREMITIES: No clubbing, cyanosis, or edema. NEURO: Cranial nerves II through XII grossly intact, no focal deficits. PSYCH: Alert and oriented x 3. SKIN: No concerning lesions. Objective Labs Result Diagrams: 05/01/20 05:44 05/01/20 05:44 Labs: Laboratory Results - last 24 hr 05/01/20 05/01/20 05/01/20 05:44 05:44 05:44 WBC 4.1 L RBC 3.30 L Hgb 11.5 L Hct 34.0 L MCV 102.9 H MCH 34.7 H MCHC 33.7 RDW 15.4 H Plt Count 85 L Neut % (Auto) Not Reportable Lymph % (Auto) Not Reportable [place] % (Auto) Not Reportable Eos % (Auto) Not Reportable Baso % (Auto) Not Reportable Lymph # (Auto) Not Reportable [place] # (Auto) Not Reportable Baso # (Auto) Not Reportable Total Counted 100 Seg Neutrophils % 48.0 Lymphocytes % (Manual) 41.0 Monocytes % (Manual) 6.0 Eosinophils % (Manual) 5.0 H Neutrophils # (Manual) 1968 L Plt Morphology Comment 1+ giant platelets RBC Morphology Normal morphology PT TNP INR TNP Sodium 136 L Potassium 4.5 D Chloride 106 Carbon Dioxide 30 BUN 3 L Creatinine 0.60 L Estimated GFR > 60.0 BUN/Creatinine Ratio 5.0 L Glucose 90 Calcium 7.5 L Magnesium 1.7 Total Bilirubin 2.1 H AST 216 H ALT 105 H Alkaline Phosphatase 160 H Total Protein 5.7 L Albumin 2.7 L Globulin 3.0 Albumin/Globulin Ratio 0.9 L [facility], [facility] Medical History (Updated 04/29/20 @ 19:54 by Era Montanez MD) Alcohol use disorder Anxiety Hypertension Family History Mother Hypertension Father Hypertension Social History marital status: unmarried,living together household members: significant other and children occupational status: employed Smoking Status: Current every day smoker alcohol intake: current substance use type: does not use Discharge Plan Discharge Plan Patient Disposition: Home Discharge orders & Medications Prescriptions: New acetaminophen 325 mg Tablet 650 mg PO Q6HR PRN (Reason: Fever/Mild Pain (1-3)) Qty: 90 RF: 3 pantoprazole 40 mg Tablet,Delayed Release (Dr/Ec) 40 mg PO BID Qty: 90 RF: 1 multivitamin with folic acid [Tab-A-Laurie] 400 mcg Tablet 1 tab PO DAILY Qty: 90 RF: 3 atenolol 25 mg tablet 75 mg PO DAILY Qty: 90 RF: 3 Continued albuterol sulfate [Ventolin HFA] 90 MCG/PUFF HFA aerosol inhaler 1 puff INH PRN PRN (Reason: Shortness Of Breath) Qty: 0 RF: 0 Discontinued hydrochlorothiazide 12.5 MG tablet 12.5 mg PO QDAY Qty: 0 RF: 0 atenolol 50 mg tablet 50 mg PO DAILY Qty: 30 RF: 0 Follow up/Referrals: Gin Newsome MD [Primary Care Provider] - Diet/Activity/Treatments Diet: Diet as Tolerated Diet comment: No alcohol. Activity: As tolerated. Skin/Wound/Dressing Care Report to your healthcare provider any signs of infection, such as:: chills, fever and increased pain Visit Report/Discharge Packet Instructions: Alcohol Use Disorder (Alternative Therapy), Alcohol Use Disorder Discharge Data Primary Care Provider: Gin Newsome Attending Provider: Ronni Allen
[2020-05-01 15:55] VITALS: BP 127/80; PULSE 81; RESP 16; TEMP 35.8; O2SAT 97
--- NOTE | 2020-05-01 16:19 | DIET.PN ---
Dietary Progress Note Assessment: 40y M admitted for chest pressure and issues c BP found to have hepatic steatosis referred to nutrition for etoh withdrawl. Pt reports has strong family hx of etoh use and abuse with several family members being in recovery. Pt never thought he had etoh issue, never drinking to black out but is common to have 5 cocktails in a day. Pt did notice recently getting shaky in the middle of the night, his mom suggested etoh withdrawls, has had family members c etoh seizures. Pt weaned down off etoh slowly and had abstained x5d before admitting to hospital. He reports his last drink resulted in emesis (which is unusual for him, steven as was a single drink). Pt decided his body is rejecting etoh and he wants to take better care. Pt endorses inguinal hernia repair last year, reports Kaylie was great, reassuring, but said it was the biggest he had seen. Since then pt has fear and hesitation regarding urination and defecation. Pt recently endorses 3w of abd px c constipation c straining to have rabbit pellets, pt endorses loud but odorless flatulence. Pt recently had BP meds doubled, since then has experienced arm and leg muscle cramping, night sweats. Pt edorses seasonal weight flux, cutting in summer and gaining in winter. Usual intake includes banana pancakes, steak c mashed potato and asparagus. Pts weight was misrecorded at some point, he is 105kg not 75kg. HT: 172.7cm WT: 105kg UBW: 105kg BMI: 35.2 Labs:BUN 3 L, Cr 0.60 L, Ca 7.5 L, liver enzymes elevated Nutrition Diagnosis: undesirable food choices r/t dietary indiscretion and excessive etoh intake aeb pt has hepatic steatosis, pt weight cycles, average 5 etoh equivalents daily. Interventions: 1. Discussed importance of etoh cessation for the health of his GI tract and liver. 2. Educated pt on hepatic steatosis, pt seemed to really respond to wanting to turn his liver from a ribeye to a sirloin. 3. Provided list of liver supportive whole foods using handout. Diet Order: full liquids
--- NOTE | 2020-05-01 18:32 | PC.NURSE ---
Discharge Note- Patient discharged home per MD orders. Reviewed discharge instructions and education with patient. IV line removed an bandaid applied. Tele monitor removed. Patient dressed self and packed up all personal belonings. Patient left via wheelchair to private car with girlfriend and all personal belingings at 1800.
--- NOTE | 2020-05-03 13:36 | PC.NURSE ---
Late Entry; Magnesium infusion initiated 04/29 at 22:57, complete 04/30 at 07:05. Potassium infusion initiated 04/30 at 09:50, complete at 13:51.
== END 2020-05-01 18:00 | disposition home or self-care (01) ==
LOC: ED 19:07 → AC 19:55
PROVIDERS: Admitting Provider Family Medicine; Emergency Provider Emergency Medicine; PCP Student in an Organized Health Care Education/Training Program; Visit Provider Family Medicine
DX: F10.239 Alcohol dependence with withdrawal, unspecified (principal); R07.9 Chest pain, unspecified; E87.1 Hypo-osmolality and hyponatremia; E87.6 Hypokalemia; K70.0 Alcoholic fatty liver; K76.0 Fatty (change of) liver, not elsewhere classified; E46 Unspecified protein-calorie malnutrition; K92.1 Melena; K64.9 Unspecified hemorrhoids; J45.20 Mild intermittent asthma, uncomplicated; I10 Essential (primary) hypertension; F17.210 Nicotine dependence, cigarettes, uncomplicated; Z20.822 Contact with and (suspected) exposure to COVID-19
CPT/HCPCS: 36415; 71046; 74177; 76700; 80053; 80074; 82550; 82553; 83690; 83735; 84484; 85007; 85025; 87635; 93005; 96365; 96366; 96367; 96375; 96376; 97116; 97161; 99284; 99406; C9803; G0378; A9270; C9113; J2060; J2270; J3475; J3480

== ENCOUNTER 2020-06-24 09:02 | Emergency (ER) | payer OTHER, SELFPAY ==
[2020-04-29 20:40] VITALS: BMI 25.4
[2020-06-24 09:05] VITALS: BP 156/98; PULSE 83; RESP 18; TEMP 36.4; O2SAT 95; BMI 31.9
--- NOTE | 2020-06-24 09:08 | ED_ITS ---
HPI - Extremity Injury (Lower) General Chief Complaint: Extremity Injury, Lower Stated Complaint: messed up right ankle doing yard work Time Seen by Provider: 06/24/20 09:05 History of Present Illness HPI Narrative: 40-year-old gentleman with a history of asthma, high blood pressure and reflux presents with with increasing right ankle pain over the last week. He is concerned that he rolled it while doing yard work. His notes however, that he has not been limping. In examining the ankle it is swollen erythematous any has a small healed punctate lesion in the center. He states he had what he thought was a bug bite about 2 weeks ago. He denies any fevers, chills, general malaise, he is able to walk but his ankle itself is becoming more sore, no palpitations, chest pain, abdominal pain, vomiting or diarrhea, dysuria and he reports no loss of muscle tone or sensation in that leg. He does note that he has had episodes with his hands getting swollen in the past for whi ch he was treated with antibiotics and steroids and a gout workup was negative. Related Data Home Medications Medication Instructions Recorded Confirmed albuterol sulfate [Ventolin HFA] 1 puff INH PRN PRN #0 05/18/17 04/29/20 Previous Rx's Medication Instructions Recorded acetaminophen 650 mg PO Q6HR PRN #90 tab 05/01/20 atenolol 75 mg PO DAILY #90 tab 05/01/20 multivitamin with folic acid 1 tab PO DAILY #90 tab 05/01/20 [Tab-A-Laurie] pantoprazole 40 mg PO BID #90 tab 05/01/20 sulfamethoxazole-trimethoprim 1 tab PO BID #14 tab 06/24/20 [Bactrim DS] Allergies Allergy/AdvReac Type Severity Reaction Status Date / Time No Known Drug Allergies Allergy Verified 04/29/20 13:28 Review of Systems Review of Systems Narrative: Remainder of complete review of systems is otherwise unremarkable except for that included in the HPI. Patient History Medical History (Updated 06/24/20 @ 11:10 by Era Montanez MD) Alcohol use disorder Anxiety Asthma Chronic GERD Hypertension Family History Mother Hypertension Father Hypertension Social History marital status: unmarried,living together household members: significant other and children occupational status: employed Smoking Status: Current every day smoker alcohol intake: current substance use type: does not use Smoking Status: Current every day smoker alcohol intake frequency: 3 or more drinks per day Substance Use Type: marijuana Exam Narrative Exam Narrative: General: Healthy appearing, in no acute distress. Able to give a complete and coherent history. Well-nourished well-developed HEENT: Moist mucous membranes, normal sclera with reactive pupils, Respiratory: Lungs are clear to auscultation, no wheezing no rales no rhonchi. Full and symmetrical air movement Cardiac: Regular rate and rhythm no murmurs no bruits Abdomen: Soft, nontender, good bowel tones, no flank pain, no inguinal adenopathy Skin: Warm and dry, right ankle with increased erythema over the medial aspect of the ankle extending just superior to the medial malleolus and including the dorsum of the foot. He has no significant tenderness to palpation. No swelling or tenderness to the 1st metatarsal joint. The dorsum of the foot as well as the ankle and calf are all slightly swollen. There is no ecchymosis. There is a small punctate healed area in the center of the erythematous region on the medial aspect of the ankle Neurologic: Grossly neurologically intact with no obvious asymmetries or abnormalities Extremities: No trauma, well perfused Psych: Cooperative, appropriate insight and affect Initial Vital Signs Initial Vital Signs: Vital Signs Temperature 97.5 F L 06/24/20 09:05 Pulse Rate 83 06/24/20 09:05 Respiratory Rate 18 06/24/20 09:05 Blood Pressure 156/98 H 06/24/20 09:05 Pulse Oximetry 95 06/24/20 09:05 Course Orders Ordered: ED Orders 06/24/20 09:26 C-Reactive Protein Quant Stat Complete Blood Count AUTO DIFF Stat Comprehensive Metabolic Panel Stat Procalcitonin Stat Uric Acid Stat 06/24/20 10:28 XR ankle RT min 3V Stat Discontinued Medications Trimethoprim/Sulfamethoxazole (Trimeth/Sulfa 160/800 (Ds) Tablet) 1 tab PO NOW ONE Stop: 06/24/20 10:29 Last Admin: 06/24/20 10:44 Dose: 1 tab Documented by: TYSON Vital Signs Vital signs: Vital Signs - 8 hr 06/24/20 09:05 Temperature 97.5 F L Pulse Rate 83 Respiratory Rate 18 Blood Pressure 156/98 H Pulse Oximetry 95 MDM - Extremity Injury (Lower) Medical Records Attestation: I reviewed the patient's medical records. Lab Data Attestation: I reviewed the patient's lab results. Result diagrams: 06/24/20 09:26 06/24/20 09:26 Labs: Lab Results 06/24/20 06/24/20 06/24/20 Range/Units 09: 09:26 09:26 WBC 8.8 (4.5-11.0) X10^3/uL RBC 3.69 L (4.5-5.9) X10^6/uL Hgb 12.9 L (13.5-17.5) g/dL Hct 37.0 L (41-53) % MCV 100.4 H (80-100) fL MCH 35.1 H (26-34) PG MCHC 35.0 (30-36) % RDW 12.5 (11.6-14.8) % Plt Count 244 (150-400) X10^3/uL Neut % (Auto) 73.5 (50-75) % Lymph % (Auto) 15.5 L (25-40) % [place] % (Auto) 7.3 (3-14) % Eos % (Auto) 3.3 (2-4) % Baso % (Auto) 0.4 (0-2) % Neut # (Auto) 6500 (1005-0796) /uL Lymph # (Auto) 1400 (4646-3130) /uL [place] # (Auto) 600 (0-900) /uL Eos # (Auto) 300 (0-450) /uL Baso # (Auto) 0 (0-100) /uL Sodium 139 (137-145) mmol/L Potassium 4.1 (3.4-5.1) mmol/L Chloride 104 (98-107) mmol/L Carbon Dioxide 26 (22-32) mmol/L BUN 10 (9-20) mg/dL Creatinine 0.94 (0.66-1.25) mg/dL Estimated GFR > 60.0 (>60) mL/min BUN/Creatinine Ratio 10.6 (6-22) Glucose 99 (70-100) mg/dL Uric Acid 7.8 (3.5-8.5) mg/dL Calcium 9.8 (8.4-10.2) mg/dL Total Bilirubin 0.4 (0.2-1.3) mg/dL AST 33 (17-59) IU/L ALT 26 (<50) IU/L Alkaline Phosphatase 105 (38-126) U/L C-Reactive Protein 1.0 (<1.0) mg/dL Total Protein 6.7 (6.3-8.2) g/dL Albumin 3.8 (3.5-5.0) g/dL Globulin 2.9 (1.7-4.1) g/dL Albumin/Globulin Ratio 1.3 (1.0-2.8) Procalcitonin 0.06 (<0.5) ng/mL Imaging Data X-ray ankle : Radiologist's Impression: FINDINGS: Bones: No fractures or dislocations. Ankle mortise is normally aligned. No suspicious bony lesions. Soft tissues: No tibiotalar joint effusion. Achilles tendon appears normal. IMPRESSION: No trauma found. Source of swelling and pain is not identified. Dictated by: Anthony Mata M.D. on 06/24/2020 at 11:02 [facility] Narrative Medical decision making narrative: 40-year-old gentleman presents with redness and pain and swelling to the right ankle. Ankle x-rays are unremarkable and Skin exam is most consistent with a developing cellulitis without abscess. Laboratory markers do not suggest sepsis, septic joint or gout. Will treat him with Bactrim DS b.i.d. for the next 7 days with instructions to return if he is not improving. There are no open wounds or drainage to obtain cultures today. Discharge Plan Departure Patient Disposition: Home Clinical Impression: Cellulitis Qualifiers: Site of cellulitis: extremity Site of cellulitis of extremity: lower extremity Laterality: left Qualified Code(s): L03.116 - Cellulitis of left lower limb Instructions: DI for Cellulitis -- Adult Activity Restrictions/Additional Instructions: You for coming in today Your exam in your workup suggests that you have a skin infection, cellulitis. There does not appear to be any underlying bone involvement(osteomyelitis), no gout and no infection inside the joint itself. I am going to have you finish a 7 day course of Bactrim DS, a sulfa antibiotic. This is good for the common skin infections including MRSA The prescription was electronically transmitted to 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 If you find that you are getting worse you need to return to the emergency department Prescriptions: New sulfamethoxazole-trimethoprim [Bactrim DS] 800-160 mg tablet 1 tab PO BID Qty: 14 RF: 0 No Action albuterol sulfate [Ventolin HFA] 90 MCG/PUFF HFA aerosol inhaler 1 puff INH PRN PRN (Reason: Shortness Of Breath) Qty: 0 RF: 0 acetaminophen 325 mg Tablet 650 mg PO Q6HR PRN (Reason: Fever/Mild Pain (1-3)) Qty: 90 RF: 3 pantoprazole 40 mg Tablet,Delayed Release (Dr/Ec) 40 mg PO BID Qty: 90 RF: 1 multivitamin with folic acid [Tab-A-Laurie] 400 mcg Tablet 1 tab PO DAILY Qty: 90 RF: 3 atenolol 25 mg tablet 75 mg PO DAILY Qty: 90 RF: 3 Referrals: Gin Newsome MD [Primary Care Provider] -
[2020-06-24 09:49] LABS: Add Manual Diff / Slide Review NO; Basophils Absolute Auto 0 /uL (0-100); Basophils Percent Auto 0.4 % (0-2); Eosinophils Absolute Auto 300 /uL (0-450); Eosinophils Percent Auto 3.3 % (2-4); Hemoglobin 12.9 g/dL (13.5-17.5); Lymphocytes Absolute Auto 1400 /uL (1100-4500); Lymphocytes Percent Auto 15.5 % (25-40); Mean Corpuscular Hemoglobin 35.1 PG (26-34); Mean Corpuscular Volume 100.4 fL (80-100); Monocytes Absolute Auto 600 /uL (0-900); Monocytes Percent Auto 7.3 % (3-14); Neutrophils Absolute Auto 6500 /uL (1500-7000); Neutrophils Percent Auto 73.5 % (50-75); Platelet Count 244 X10^3/uL (150-400); Red Blood Cell Count 3.69 X10^6/uL (4.5-5.9); Red Cell Distribution Width 12.5 % (11.6-14.8); White Blood Cell Count 8.8 X10^3/uL (4.5-11.0)
[2020-06-24 10:06] LABS: Uric Acid 7.8 mg/dL (3.5-8.5)
[2020-06-24 10:25] LABS: Alanine Aminotransferase 26 IU/L (<50); Albumin 3.8 g/dL (3.5-5.0); Albumin Globulin Ratio 1.3 (1.0-2.8); Alkaline Phosphatase 105 U/L (38-126); Aspartate Aminotransferase 33 IU/L (17-59); BUN Creatinine Ratio 10.6 (6-22); Bilirubin Total 0.4 mg/dL (0.2-1.3); Blood Urea Nitrogen 10 mg/dL (9-20); Calcium 9.8 mg/dL (8.4-10.2); Carbon Dioxide 26 mmol/L (22-32); Chloride 104 mmol/L (98-107); Estimated Glomerular Filt Rate > 60.0 mL/min (>60); Globulin 2.9 g/dL (1.7-4.1); Glucose 99 mg/dL (70-100); HEMOLYSIS < 15 (0-50); Potassium 4.1 mmol/L (3.4-5.1); Sodium 139 mmol/L (137-145); Total Protein 6.7 g/dL (6.3-8.2)
--- NOTE | 2020-06-24 10:28 | DI.RAD.S_ITS ---
PROCEDURE: XR ANKLE RT MIN 3V INDICATIONS: swelling and pain TECHNIQUE: 3 views of the ankle were acquired. COMPARISON: None. FINDINGS: Bones: No fractures or dislocations. Ankle mortise is normally aligned. No suspicious bony lesions. Soft tissues: No tibiotalar joint effusion. Achilles tendon appears normal. IMPRESSION: No trauma found. Source of swelling and pain is not identified. Dictated by: Anthony Mata M.D. on 06/24/2020 at 11:02 Approved by: Anthony Mata M.D. on 06/24/2020 at 11:04
[2020-06-24 10:41] LABS: Procalcitonin 0.06 ng/mL (<0.5)
[2020-06-24] MEDS: TRIMETH/SULFA 160/800 (DS) TABLET 1 TAB PO (10:44)
[2020-06-24 11:20] VITALS: BP 172/100; PULSE 74; RESP 16; O2SAT 96
== END 2020-06-24 11:21 | disposition home or self-care (01) ==
PROVIDERS: Emergency Provider Emergency Medicine; PCP Student in an Organized Health Care Education/Training Program
DX: L03.116 Cellulitis of left lower limb (principal)
CPT/HCPCS: 36415; 73610; 80053; 84145; 84550; 85025; 86140; 99283; 99284

== ENCOUNTER 2020-11-30 08:46 | Emergency (ER) | payer OTHER, SELFPAY ==
[2020-04-29 20:40] VITALS: BMI 25.4
[2020-11-30] VITALS (8 sets, daily range): BP systolic 162–195; BP diastolic 85–120; PULSE 68–76; RESP 18–24; TEMP 36.1; O2SAT 94–98; BMI 33.4
--- NOTE | 2020-11-30 09:30 | ED_ITS ---
HPI - Skin/Abscess/Foreign Bdy General Chief complaint: Skin/Abscess/Foreign Body Stated complaint: dehydration/recurring infection in foot Time Seen by Provider: 11/30/20 09:22 Source: patient Mode of arrival: Family Vehicle Limitations: no limitations History of Present Illness HPI narrative: Patient is a 40-year-old male who has a history of hypertension presenting with vague symptoms. He has some right foot pain ongoing for couple days he thought previously he had infection but that was long time ago woke up today with pain in his big toe is mildly erythematous. No prior history of gout. He intermittently has abdominal pain he has had this ongoing since he had mesh put in for hernia surgery. He says he feels like it is that pain. He AV is mildly short of breath. He no chest pain or palpitations. He occasionally feels nauseated. No headache. He is currently quite hypertensive. Previously admitted for alcohol draw and dehydration. Related Data Home Medications Medication Instructions Recorded Confirmed atenolol 25 mg tablet 75 mg PO QAM 11/30/20 Previous Rx's Medication Instructions Recorded pantoprazole 40 mg tablet,delayed 40 mg PO BID #90 tab 05/01/20 release Allergies Allergy/AdvReac Type Severity Reaction Status Date / Time No Known Drug Allergies Allergy Verified 11/30/20 10:33 Review of Systems Review of Systems Narrative: GENERAL: Denies chills, fatigue, malaise, fever, sweats, travel HEENT: Denies sinus pain, ear pain, sore throat, difficulty swallowing, neck pain RESPIRATORY: Denies dyspnea, cough, wheezing, hemoptysis, sputum. CARDIOVASCULAR: Denies chest pain, palpitations, orthopnea, edema GASTROINTESTINAL: Mild abdominal pain, denies nausea or vomiting no diarrhea : Denies dysuria, frequency, incontinence, hematuria, urinary retention, flank pain. MUSCULOSKELETAL: Right foot pain, see HPI SKIN: No rash, no erythema, no pruritus NEUROLOGIC: Denies weakness, dizziness, headache, numbness, change in speech, confusion PSYCHIATRIC: No concerning psychosocial issues. 12 point review of systems is negative except for those stated above and HPI Patient History Medical History (Updated 11/30/20 @ 11:49 by Nancy Patel DO) Alcohol use disorder Anxiety Asthma Chronic GERD Hypertension Family History Mother Hypertension Father Hypertension Social History marital status: unmarried,living together household members: significant other and children occupational status: employed Smoking Status: Current every day smoker alcohol intake: current substance use type: does not use Smoking Status: Current every day smoker alcohol intake frequency: 3 or more drinks per day Substance Use Type: marijuana Exam Initial Vital Signs Initial Vital Signs: Vital Signs Temperature 96.9 F L 11/30/20 09:05 Pulse Rate 74 11/30/20 09:05 Respiratory Rate 18 11/30/20 09:05 Blood Pressure 195/120 H 11/30/20 09:05 Pulse Oximetry 97 11/30/20 09:05 GENERAL: Alert well-appearing 40-year-old and in no acute distress. HEENT: Head atraumatic,EOMI, pupils reactive, face symmetric, moist mucous membranes CARDIOVASCULAR: Regular rate and rhythm without murmurs, rubs or gallops. RESPIRATORY: Breath sounds equal bilaterally, no wheezes rales or rhonchi. ABDOMEN: Soft, nontender. Normoactive bowel sounds all 4 quadrants. No guarding or rebound. No right upper quadrant pain : No CVA tenderness EXTREMITIES: Normal range of motion, no clubbing or edema. Neurovascularly intact. Right foot pain minimal erythema at MTP 1st toe. Mild tenderness to touch no erythema, moves it easily foot is soft NEUROLOGICAL: Alert and oriented x4.Normal gait and speech. SKIN: Warm, dry, no laceration, no petechiae, no rashes or lesions. Course Orders Ordered: ED Orders 11/30/20 09:30 XR foot RT min 3V Stat 11/30/20 09:31 XR chest 1V Stat 11/30/20 10:08 EKG-12 Lead Stat 11/30/20 10:36 Complete Blood Count AUTO DIFF Stat Comprehensive Metabolic Panel Stat Lipase Stat Troponin & CK Cardiac Panel Stat Uric Acid Stat Vital Signs Vital signs: Vital Signs - 8 hr 11/30/20 09:05 11/30/20 09:49 11/30/20 09:59 Temperature 96.9 F L Pulse Rate 74 70 74 Respiratory Rate 18 21 Blood Pressure 195/120 H 177/108 H Pulse Oximetry 97 97 98 11/30/20 10:00 11/30/20 10:30 11/30/20 11:00 Temperature Pulse Rate 71 68 73 Respiratory Rate 24 21 22 Blood Pressure 162/101 H 169/111 H 183/107 H Pulse Oximetry 97 96 95 11/30/20 11:30 11/30/20 11:31 Temperature Pulse Rate 76 Respiratory Rate 23 Blood Pressure 173/85 H Pulse Oximetry 94 MDM - Skin/Abscess/Foreign Bdy Lab Data Result diagrams: 11/30/20 10:36 11/30/20 10:36 Labs: Lab Results 11/30/20 11/30/20 11/30/20 Range/Units 10:36 10:36 10:36 WBC 6.8 (4.5-11.0) X10^3/uL RBC 4.64 (4.5-5.9) X10^6/uL Hgb 16.0 (13.5-17.5) g/dL Hct 44.7 (41-53) % MCV 96.2 (80-100) fL MCH 34.6 H (26-34) PG MCHC 35.9 (30-36) % RDW 12.6 (11.6-14.8) % Plt Count 206 (150-400) X10^3/uL Neut % (Auto) 67.6 (50-75) % Lymph % (Auto) 24.6 L (25-40) % [place] % (Auto) 5.2 (3-14) % Eos % (Auto) 1.4 L (2-4) % Baso % (Auto) 1.2 (0-2) % Neut # (Auto) 4600 (0408-3334) /uL Lymph # (Auto) 1700 (3797-2487) /uL [place] # (Auto) 400 (0-900) /uL Eos # (Auto) 100 (0-450) /uL Baso # (Auto) 100 (0-100) /uL Sodium 135 L (137-145) mmol/L Potassium 4.6 (3.4-5.1) mmol/L Chloride 102 (98-107) mmol/L Carbon Dioxide 22 (22-32) mmol/L BUN 10 (9-20) mg/dL Creatinine 0.61 L (0.66-1.25) mg/dL Estimated GFR > 60.0 (>60) mL/min BUN/Creatinine Ratio 16.4 (6-22) Glucose 103 H (70-100) mg/dL Uric Acid 7.6 (3.5-8.5) mg/dL Calcium 9.4 (8.4-10.2) mg/dL Total Bilirubin 1.8 H (0.2-1.3) mg/dL AST 234 H (17-59) IU/L ALT 102 H (<50) IU/L Alkaline Phosphatase 138 H (38-126) U/L Total Creatine Kinase 75 (55-170) U/L CK-MB (CK-2) TNP CK-MB (CK-2) Rel Index TNP Troponin I < 0.012 (0.01-0.034) ng/mL Total Protein 7.9 (6.3-8.2) g/dL Albumin 4.1 (3.5-5.0) g/dL Globulin 3.8 (1.7-4.1) g/dL Albumin/Globulin Ratio 1.1 (1.0-2.8) Lipase 70 (23-300) U/L Imaging Data Chest x-ray: Radiologist's Impression: PROCEDURE:? XR CHEST 1V ? INDICATIONS:? hypertension ? TECHNIQUE:? One view of the chest was acquired.? ? COMPARISON:? [facility], , XR CHEST 1V, 11/13/2018, 13:05.? [facility] CR, XR CHEST 2V, 04/29/2020, 13:40. ? FINDINGS:? ? Surgical changes and devices:? None.? ? Lungs and pleura:? On this semiupright portable chest examination, no large pneumothorax or large pleural effusions are seen.? No focal infiltrates are seen.? ? Mediastinum:? Mediastinal contours appear normal.? Heart size is normal.? ? Bones and chest wall:? No suspicious bony lesions.? Overlying soft tissues appear unremarkable.? ? IMPRESSION:? ? Portable chest within normal limits. ? ? ? Dictated by: Zenon Berg M.D. on 11/30/2020 at 8:50 ? ? Extremity x-ray #1: Radiologist's Impression: PROCEDURE:? XR FOOT RT MIN 3V ? INDICATIONS:? pain no injury ? TECHNIQUE:? 3 views of the foot were acquired.? ? COMPARISON:? [facility], CR, XR ANKLE RT MIN 3V, 06/24/2020, 10:30.? [facility], CR, XR CHEST 1V, 11/30/2020, 9:33. ? FINDINGS:? ? Bones:? No fractures or dislocations.? No suspicious bony lesions.? There is mild medial femorotibial joint space narrowing seen, with associated remodeling changes including subchondral sclerosis and osteophyte formation along the jointline.? On the lateral view, there is a remote injury versus accessory ossicle seen along the superior aspect the Lisfranc joint. ? Soft tissues:? No tibiotalar joint effusion.? Achilles tendon appears normal.? ? ? IMPRESSION:? Mild hallux valgus deformity. ? ? Dictated by: Zenon Berg M.D. on 11/30/2020 at 8:51 ? ? Approved by: Zenon Berg M.D. on 11/30/2020 at 8:52 ? ECG Data Interpretation: Normal sinus rhythm rate 66 NE interval 174 QRS [address] changes no T-wave inversion MDM Narrative Medical decision making narrative: Patient is a 40-year-old male with multiple vague symptoms. He is noted to be quite hypertensive. Previous his admission shows here for some alcohol withdrawal and electrolyte abnormalities. He actually states that he is trying to decrease his alcohol intake and that he has done so since his previous admission but he has not yet stopped. Blood work is overall reassuring. Uric acid is negative he does have some pain in very minimal erythema in his right great toe. Possible gout however x-ray does show probable bunion. Blood pressure has improved. He states that he was recently taken off his hydro chlorothiazide after his admission possibly due to electrolyte abnormalities. I discussed with the monitoring his blood pressure at home and following up with his primary care provider. At this time I recommend Motrin for pain is in his foot. Discharge Plan Departure Patient Disposition: Home Clinical Impression: Acquired hallux varus of right foot Hypertension Qualifiers: Hypertension type: primary hypertension Qualified Code(s): I10 - Essential (primary) hypertension Instructions: Essential Hypertension Activity Restrictions/Additional Instructions: *You have been diagnosed with hypertension and bunion *What to do: Please monitor blood pressure daily and record. He will likely need adjustment to your blood pressure medication. You have a small bunion growing on your foot. You may ambulate as tolerated Continue to decrease alcohol use slowly. Alcoholics anonymous is also a good resource *Continue to take medications as directed Motrin 800 mg every 8 hours if needed for pain *Follow up with your primary care provider in 2-3 days *Return to ER if you should have increasing chest pain, headache, shortness of breath palpitations, increasing foot pain or any new, worsening or concerning sy mptoms Prescriptions: No Action pantoprazole 40 mg Tablet,Delayed Release (Dr/Ec) 40 mg PO BID Qty: 90 RF: 1 atenolol 25 mg tablet 75 mg PO QAM RF: 0 Referrals: Gin Newsome MD [Primary Care Provider] -
--- NOTE | 2020-11-30 09:30 | DI.RAD.S_ITS ---
PROCEDURE: XR FOOT RT MIN 3V INDICATIONS: pain no injury TECHNIQUE: 3 views of the foot were acquired. COMPARISON: [facility], CR, XR ANKLE RT MIN 3V, 06/24/2020, 10:30. [facility], CR, XR CHEST 1V, 11/30/2020, 9:33. FINDINGS: Bones: No fractures or dislocations. No suspicious bony lesions. There is mild medial femorotibial joint space narrowing seen, with associated remodeling changes including subchondral sclerosis and osteophyte formation along the jointline. On the lateral view, there is a remote injury versus accessory ossicle seen along the superior aspect the Lisfranc joint. Soft tissues: No tibiotalar joint effusion. Achilles tendon appears normal. IMPRESSION: Mild hallux valgus deformity. Dictated by: Zenon Berg M.D. on 11/30/2020 at 8:51 Approved by: Zenon Berg M.D. on 11/30/2020 at 8:52
--- NOTE | 2020-11-30 09:31 | DI.RAD.S_ITS ---
PROCEDURE: XR CHEST 1V INDICATIONS: hypertension TECHNIQUE: One view of the chest was acquired. COMPARISON: [facility], CR, XR CHEST 1V, 11/13/2018, 13:05. [facility], CR, XR CHEST 2V, 04/29/2020, 13:40. FINDINGS: Surgical changes and devices: None. Lungs and pleura: On this semiupright portable chest examination, no large pneumothorax or large pleural effusions are seen. No focal infiltrates are seen. Mediastinum: Mediastinal contours appear normal. Heart size is normal. Bones and chest wall: No suspicious bony lesions. Overlying soft tissues appear unremarkable. IMPRESSION: Portable chest within normal limits. Dictated by: Zenon Berg M.D. on 11/30/2020 at 8:50 Approved by: Zenon Berg M.D. on 11/30/2020 at 8:51
[2020-11-30 10:42] LABS: Add Manual Diff / Slide Review NO; Basophils Absolute Auto 100 /uL (0-100); Basophils Percent Auto 1.2 % (0-2); Eosinophils Absolute Auto 100 /uL (0-450); Eosinophils Percent Auto 1.4 % (2-4); Hematocrit 44.7 % (41-53); Lymphocytes Absolute Auto 1700 /uL (1100-4500); Lymphocytes Percent Auto 24.6 % (25-40); Mean Corpuscular HGB Conc 35.9 % (30-36); Mean Corpuscular Hemoglobin 34.6 PG (26-34); Mean Corpuscular Volume 96.2 fL (80-100); Monocytes Absolute Auto 400 /uL (0-900); Monocytes Percent Auto 5.2 % (3-14); Neutrophils Absolute Auto 4600 /uL (1500-7000); Neutrophils Percent Auto 67.6 % (50-75); Platelet Count 206 X10^3/uL (150-400); Red Blood Cell Count 4.64 X10^6/uL (4.5-5.9); Red Cell Distribution Width 12.6 % (11.6-14.8); White Blood Cell Count 6.8 X10^3/uL (4.5-11.0)
[2020-11-30 11:00] LABS: Alanine Aminotransferase 102 IU/L (<50); Albumin 4.1 g/dL (3.5-5.0); Albumin Globulin Ratio 1.1 (1.0-2.8); Alkaline Phosphatase 138 U/L (38-126); Aspartate Aminotransferase 234 IU/L (17-59); BUN Creatinine Ratio 16.4 (6-22); Bilirubin Total 1.8 mg/dL (0.2-1.3); Blood Urea Nitrogen 10 mg/dL (9-20); Calcium 9.4 mg/dL (8.4-10.2); Carbon Dioxide 22 mmol/L (22-32); Chloride 102 mmol/L (98-107); Creatine Kinase 75 U/L (55-170); Estimated Glomerular Filt Rate > 60.0 mL/min (>60); Globulin 3.8 g/dL (1.7-4.1); Glucose 103 mg/dL (70-100); Lipase 70 U/L (23-300); Potassium 4.6 mmol/L (3.4-5.1); Sodium 135 mmol/L (137-145); Total Protein 7.9 g/dL (6.3-8.2)
[2020-11-30 11:01] LABS: HEMOLYSIS 102 (0-50)
[2020-11-30 11:11] LABS: Troponin I < 0.012 ng/mL (0.01-0.034)
[2020-11-30 11:12] LABS: Uric Acid 7.6 mg/dL (3.5-8.5)
== END 2020-11-30 12:00 | disposition home or self-care (01) ==
PROVIDERS: Emergency Provider Emergency Medicine; PCP Student in an Organized Health Care Education/Training Program
DX: M20.31 Hallux varus (acquired), right foot (principal); I10 Essential (primary) hypertension; R06.02 Shortness of breath; R10.9 Unspecified abdominal pain
CPT/HCPCS: 36415; 71045; 73630; 80053; 82550; 83690; 84484; 84550; 85025; 93005; 93010; 99284

== ENCOUNTER 2020-12-21 16:49 | Emergency (ER) | payer OTHER, SELFPAY ==
[2020-04-29 20:40] VITALS: BMI 25.4
[2020-12-21] VITALS (21 sets, daily range): BP systolic 152–198; BP diastolic 90–122; PULSE 74–86; RESP 14–23; O2SAT 94–99; BMI 33.4
--- NOTE | 2020-12-21 16:55 | DI.RAD.S_ITS ---
PROCEDURE: XR CHEST 1V INDICATIONS: chest pain TECHNIQUE: One view of the chest was acquired. COMPARISON: [facility], CR, XR CHEST 1V, 11/30/2020, 9:33. FINDINGS: Surgical changes and devices: None. Lungs and pleura: Lungs are clear. No pleural effusions or pneumothorax. Mediastinum: Mediastinal contours appear normal. Heart size is normal. Bones and chest wall: No suspicious bony lesions. Overlying soft tissues appear unremarkable. IMPRESSION: No evidence of an acute cardiopulmonary abnormality. Dictated by: Percy Jolley D.O. on 12/21/2020 at 16:41 Approved by: Percy Jolley D.O. on 12/21/2020 at 16:42
[2020-12-21 17:07] LABS: Add Manual Diff / Slide Review NO; Basophils Absolute Auto 100 /uL (0-100); Basophils Percent Auto 1.3 % (0-2); Eosinophils Absolute Auto 100 /uL (0-450); Eosinophils Percent Auto 0.9 % (2-4); Hematocrit 43.5 % (41-53); Hemoglobin 15.5 g/dL (13.5-17.5); Lymphocytes Absolute Auto 2500 /uL (1100-4500); Mean Corpuscular HGB Conc 35.5 % (30-36); Mean Corpuscular Hemoglobin 34.6 PG (26-34); Mean Corpuscular Volume 97.3 fL (80-100); Monocytes Absolute Auto 500 /uL (0-900); Monocytes Percent Auto 6.5 % (3-14); Neutrophils Absolute Auto 4600 /uL (1500-7000); Neutrophils Percent Auto 59.3 % (50-75); Platelet Count 197 X10^3/uL (150-400); Red Blood Cell Count 4.47 X10^6/uL (4.5-5.9); Red Cell Distribution Width 12.7 % (11.6-14.8); White Blood Cell Count 7.8 X10^3/uL (4.5-11.0)
[2020-12-21 17:13] LABS: Alanine Aminotransferase 80 IU/L (<50); Albumin Globulin Ratio 1.2 (1.0-2.8); Alkaline Phosphatase 155 U/L (38-126); Aspartate Aminotransferase 130 IU/L (17-59); BUN Creatinine Ratio 18.7 (6-22); Bilirubin Total 1.4 mg/dL (0.2-1.3); Blood Urea Nitrogen 14 mg/dL (9-20); Calcium 8.8 mg/dL (8.4-10.2); Carbon Dioxide 25 mmol/L (22-32); Chloride 101 mmol/L (98-107); Creatine Kinase 73 U/L (55-170); Estimated Glomerular Filt Rate > 60.0 mL/min (>60); Globulin 3.4 g/dL (1.7-4.1); Glucose 95 mg/dL (70-100); Potassium 4.2 mmol/L (3.4-5.1); Sodium 134 mmol/L (137-145); Total Protein 7.4 g/dL (6.3-8.2)
[2020-12-21 17:14] LABS: HEMOLYSIS 66 (0-50)
[2020-12-21 17:15] LABS: COVID19 -Nasal RAPID Negative (Negative)
[2020-12-21 17:25] LABS: Troponin I < 0.012 ng/mL (0.01-0.034)
--- NOTE | 2020-12-21 17:31 | ED_ITS ---
HPI - Chest Pain <Andrzej Ordonez MD - Last Filed: 12/22/20 20:25> General Chief Complaint: Chest Pain Stated Complaint: blad fluctuation of heart rate, SOB, sweaty Time Seen by Provider: 12/21/20 17:18 Source: patient Mode of arrival: Ambulatory Limitations: no limitations History of Present Illness HPI narrative: Patient here for non reproducible left-sided chest pain nonradiating. Started last night around 6:30 p.m. at work. Had diaphoresis nausea shortness of breath and dizziness. At this time continues to complain mild left chest pain. Patient does admit alcohol consumption daily. Has been trying to wean down. No altered mental status. Patient liver enzymes reviewed. Is chronically elevated. Likely related to alcohol. Does smoke cigarettes. Family history of coronary disease. Patient states has not missed his blood pressure medication. Seen by family doctor 3 months ago for routine checkup. This past week has had fluctuations in his blood pressure. No recent illness. No fever chills cough cold congestion. No nausea or vomiting. Related Data Home Medications Medication Instructions Recorded Confirmed atenolol 25 mg tablet 75 mg PO QAM 11/30/20 Previous Rx's Medication Instructions Recorded pantoprazole 40 mg tablet,delayed 40 mg PO BID #90 tab 05/01/20 release hydrocodone 5 mg-acetaminophen 325 1 tab PO Q4-6H PRN #10 tab 12/22/20 mg tablet ketorolac 10 mg tablet 10 mg PO Q6H PRN #14 tab 12/22/20 Allergies Allergy/AdvReac Type Severity Reaction Status Date / Time No Known Drug Allergies Allergy Verified 12/21/20 16:57 Review of Systems <Andrzej Ordonez MD - Last Filed: 12/22/20 20:25> Review of Systems Narrative: GENERAL: Denies chills, fatigue, malaise, fever, positive sweats. HEENT: Denies sinus pain, ear pain, sore throat RESPIRATORY: Positive dyspnea, negative cough CARDIOVASCULAR: Positive chest pain, negative palpitations GASTROINTESTINAL: Positive nausea, negative vomiting, abdominal pain : Denies dysuria, frequency, hematuria MUSCULOSKELETAL: denies muscle or bony pain SKIN: Denies rash, skin lesions NEUROLOGIC: Denies weakness, numbness ROS Unobtainable: All systems reviewed & are unremarkable except as noted in HPI and below Patient History <Andrzej Ordonez MD - Last Filed: 12/22/20 20:25> Medical History Alcohol use disorder Anxiety Asthma Chronic GERD Hypertension Family History Mother Hypertension Father Hypertension Social History marital status: unmarried,living together household members: significant other and children occupational status: employed Smoking Status: Current every day smoker alcohol intake: current substance use type: does not use Smoking Status: Current every day smoker alcohol intake frequency: 3 or more drinks per day Substance Use Type: marijuana Exam <Andrzej Ordonez MD - Last Filed: 12/22/20 20:25> Narrative Exam Narrative: GENERAL: in no distress, not toxic not dyspneic HEAD: Normocephalic. EYES: Pupils equal round No scleral icterus. ENT: Mucous membranes moist. NECK: Trachea midline. CARDIOVASCULAR: Regular rate and rhythm without murmurs RESPIRATORY: Clear to auscultation. Breath sounds equal bilaterally. No wheezes, rales, or rhonchi. GASTROINTESTINAL: Abdomen soft, non-tender EXTREMITIES: No gross deformities. BACK: No flank tenderness. NEURO: AOx4. SKIN: Warm and dry PSYCH: Not anxious, is cooperative Initial Vital Signs Initial Vital Signs: Vital Signs Pulse Rate 82 12/21/20 16:52 Respiratory Rate 14 12/21/20 16:52 Blood Pressure 198/122 H 12/21/20 16:52 Pulse Oximetry 99 12/21/20 16:52 <Chuy Herrera DO - Last Filed: 12/22/20 03:46> Initial Vital Signs Initial Vital Signs: Vital Signs Pulse Rate 82 12/21/20 16:52 Respiratory Rate 14 12/21/20 16:52 Blood Pressure 198/122 H 12/21/20 16:52 Pulse Oximetry 99 12/21/20 16:52 Course <Andrzej Ordonez MD - Last Filed: 12/22/20 20:25> Course Course Narrative: 6:00 p.m.. Sign out to Dr. Herrera, awaiting 2nd set enzymes. Will likely need transfer for cardiac workup. Orders Ordered: Discontinued Medications Hydrocodone Bitart/Acetaminophen (Hydrocodone/Acet 5/325 Prepack) 1 bottle [facility] ONE Stop: 12/22/20 00:39 Last Admin: 12/22/20 00:48 Dose: 1 bottle Documented by: EMEKA Ketorolac Tromethamine (Ketorolac 30 Mg/Ml Vial) 15 mg IV NOW ONE Stop: 12/21/20 22:55 Last Admin: 12/21/20 23:05 Dose: 15 mg Documented by: EMEKA Lorazepam (Lorazepam 2 Mg/Ml Inj) 1 mg IV NOW ONE Stop: 12/21/20 17:34 Last Admin: 12/21/20 18:09 Dose: 1 mg Documented by: MARILYN Nitroglycerin (Nitroglycerin Oint 1 Inch/Gm Oint...G.) 1 inch TOP NOW ONE Stop: 12/21/20 17:31 Last Admin: 12/21/20 18:09 Dose: 1 inch Documented by: MARILYN Vital Signs Vital signs: Vital Signs - 8 hr 12/21/20 20:07 12/21/20 20:08 12/21/20 20:30 Pulse Rate 76 76 78 Respiratory Rate 18 20 Blood Pressure 171/92 H 159/101 H Pulse Oximetry 97 96 95 12/21/20 21:00 12/21/20 21:30 12/21/20 22:00 Pulse Rate 78 77 74 Respiratory Rate 19 23 Blood Pressure 163/94 H 152/90 H 153/92 H Pulse Oximetry 95 94 94 12/21/20 22:30 12/21/20 23:05 12/21/20 23:06 Pulse Rate 77 86 82 Respiratory Rate 19 20 22 Blood Pressure 171/95 H 189/100 H Pulse Oximetry 96 96 96 12/21/20 23:30 12/22/20 00:00 12/22/20 00:01 Pulse Rate 77 72 76 Respiratory Rate 19 22 23 Blood Pressure 162/93 H 134/71 Pulse Oximetry 95 94 95 12/22/20 00:30 Pulse Rate 76 Respiratory Rate 23 Blood Pressure 134/76 Pulse Oximetry 95 <Chuy Herrera DO - Last Filed: 12/22/20 03:46> Orders Ordered: Discontinued Medications Hydrocodone Bitart/Acetaminophen (Hydrocodone/Acet 5/325 Prepack) 1 bottle [facility] ONE Stop: 12/22/20 00:39 Last Admin: 12/22/20 00:48 Dose: 1 bottle Documented by: EMEKA Ketorolac Tromethamine (Ketorolac 30 Mg/Ml Vial) 15 mg IV NOW ONE Stop: 12/21/20 22:55 Last Admin: 12/21/20 23:05 Dose: 15 mg Documented by: EMEKA Lorazepam (Lorazepam 2 Mg/Ml Inj) 1 mg IV NOW ONE Stop: 12/21/20 17:34 Last Admin: 12/21/20 18:09 Dose: 1 mg Documented by: MARILYN Nitroglycerin (Nitroglycerin Oint 1 Inch/Gm Oint...G.) 1 inch TOP NOW ONE Stop: 12/21/20 17:31 Last Admin: 12/21/20 18:09 Dose: 1 inch Documented by: MARILYN Vital Signs Vital signs: Vital Signs - 8 hr 12/21/20 20:07 12/21/20 20:08 12/21/20 20:30 Pulse Rate 76 76 78 Respiratory Rate 18 20 Blood Pressure 171/92 H 159/101 H Pulse Oximetry 97 96 95 12/21/20 21:00 12/21/20 21:30 12/21/20 22:00 Pulse Rate 78 77 74 Respiratory Rate 19 23 Blood Pressure 163/94 H 152/90 H 153/92 H Pulse Oximetry 95 94 94 12/21/20 22:30 12/21/20 23:05 12/21/20 23:06 Pulse Rate 77 86 82 Respiratory Rate 19 20 22 Blood Pressure 171/95 H 189/100 H Pulse Oximetry 96 96 96 12/21/20 23:30 12/22/20 00:00 12/22/20 00:01 Pulse Rate 77 72 76 Respiratory Rate 19 22 23 Blood Pressure 162/93 H 134/71 Pulse Oximetry 95 94 95 12/22/20 00:30 Pulse Rate 76 Respiratory Rate 23 Blood Pressure 134/76 Pulse Oximetry 95 MDM - Chest Pain <Andrzej Ordonez MD - Last Filed: 12/22/20 20:25> Differential Diagnosis Differential diagnosis: Likely stable angina, unstable angina pectoris, atypical chest pain and st elevation myocardial infarction Lab Data Result diagrams: 12/21/20 16:56 12/21/20 16:56 Labs: Lab Results 12/21/20 12/21/20 12/21/20 Range/Units 16:54 16:56 16:56 WBC 7.8 (4.5-11.0) X10^3/uL RBC 4.47 L (4.5-5.9) X10^6/uL Hgb 15.5 (13.5-17.5) g/dL Hct 43.5 (41-53) % MCV 97.3 (80-100) fL MCH 34.6 H (26-34) PG MCHC 35.5 (30-36) % RDW 12.7 (11.6-14.8) % Plt Count 197 (150-400) X10^3/uL Neut % (Auto) 59.3 (50-75) % Lymph % (Auto) 32.0 (25-40) % [place] % (Auto) 6.5 (3-14) % Eos % (Auto) 0.9 L (2-4) % Baso % (Auto) 1.3 (0-2) % Neut # (Auto) 4600 (7004-0605) /uL Lymph # (Auto) 2500 (0497-0606) /uL [place] # (Auto) 500 (0-900) /uL Eos # (Auto) 100 (0-450) /uL Baso # (Auto) 100 (0-100) /uL ESR (0-15) MM/HR D-Dimer 224 (<230) ng/mL Sodium 134 L (137-145) mmol/L Potassium 4.2 (3.4-5.1) mmol/L Chloride 101 (98-107) mmol/L Carbon Dioxide 25 (22-32) mmol/L BUN 14 (9-20) mg/dL Creatinine 0.75 (0.66-1.25) mg/dL Estimated GFR > 60.0 (>60) mL/min BUN/Creatinine Ratio 18.7 (6-22) Glucose 95 (70-100) mg/dL Calcium 8.8 (8.4-10.2) mg/dL Total Bilirubin 1.4 H (0.2-1.3) mg/dL AST 130 H (17-59) IU/L ALT 80 H (<50) IU/L Alkaline Phosphatase 155 H (38-126) U/L Total Creatine Kinase 73 (55-170) U/L CK-MB (CK-2) TNP CK-MB (CK-2) Rel Index TNP Troponin I < 0.012 (0.01-0.034) ng/mL C-Reactive Protein (<1.0) mg/dL Total Protein 7.4 (6.3-8.2) g/dL Albumin 4.0 (3.5-5.0) g/dL Globulin 3.4 (1.7-4.1) g/dL Albumin/Globulin Ratio 1.2 (1.0-2.8) Lipase (23-300) U/L SARS-CoV-2 (PCR) (Negative) 12/21/20 12/21/20 12/21/20 Range/Units 16:56 16:56 16:56 WBC (4.5-11.0) X10^3/uL RBC (4.5-5.9) X10^6/uL Hgb (13.5-17.5) g/dL Hct (41-53) % MCV (80-100) fL MCH (26-34) PG MCHC (30-36) % RDW (11.6-14.8) % Plt Count (150-400) X10^3/uL Neut % (Auto) (50-75) % Lymph % (Auto) (25-40) % Rolette % (Auto) (3-14) % Eos % (Auto) (2-4) % Baso % (Auto) (0-2) % Neut # (Auto) (1101-4621) /uL Lymph # (Auto) (6901-0763) /uL Rolette # (Auto) (0-900) /uL Eos # (Auto) (0-450) /uL Baso # (Auto) (0-100) /uL ESR 6 (0-15) MM/HR D-Dimer (<230) ng/mL Sodium (137-145) mmol/L Potassium (3.4-5.1) mmol/L Chloride (98-107) mmol/L Carbon Dioxide (22-32) mmol/L BUN (9-20) mg/dL Creatinine (0.66-1.25) mg/dL Estimated GFR (>60) mL/min BUN/Creatinine Ratio (6-22) Glucose (70-100) mg/dL Calcium (8.4-10.2) mg/dL Total Bilirubin (0.2-1.3) mg/dL AST (17-59) IU/L ALT (<50) IU/L Alkaline Phosphatase (38-126) U/L Total Creatine Kinase (55-170) U/L CK-MB (CK-2) CK-MB (CK-2) Rel Index Troponin I (0.01-0.034) ng/mL C-Reactive Protein (<1.0) mg/dL Total Protein (6.3-8.2) g/dL Albumin (3.5-5.0) g/dL Globulin (1.7-4.1) g/dL Albumin/Globulin Ratio (1.0-2.8) Lipase 80 (23-300) U/L SARS-CoV-2 (PCR) Negative (Negative) 12/21/20 12/21/20 Range/Units 16:56 21:03 WBC (4.5-11.0) X10^3/uL RBC (4.5-5.9) X10^6/uL Hgb (13.5-17.5) g/dL Hct (41-53) % MCV (80-100) fL MCH (26-34) PG MCHC (30-36) % RDW (11.6-14.8) % Plt Count (150-400) X10^3/uL Neut % (Auto) (50-75) % Lymph % (Auto) (25-40) % Rolette % (Auto) (3-14) % Eos % (Auto) (2-4) % Baso % (Auto) (0-2) % Neut # (Auto) (9080-2353) /uL Lymph # (Auto) (1446-6074) /uL Rolette # (Auto) (0-900) /uL Eos # (Auto) (0-450) /uL Baso # (Auto) (0-100) /uL ESR (0-15) MM/HR D-Dimer (<230) ng/mL Sodium (137-145) mmol/L Potassium (3.4-5.1) mmol/L Chloride (98-107) mmol/L Carbon Dioxide (22-32) mmol/L BUN (9-20) mg/dL Creatinine (0.66-1.25) mg/dL Estimated GFR (>60) mL/min BUN/Creatinine Ratio (6-22) Glucose (70-100) mg/dL Calcium (8.4-10.2) mg/dL Total Bilirubin (0.2-1.3) mg/dL AST (17-59) IU/L ALT (<50) IU/L Alkaline Phosphatase (38-126) U/L Total Creatine Kinase (55-170) U/L CK-MB (CK-2) CK-MB (CK-2) Rel Index Troponin I < 0.012 (0.01-0.034) ng/mL C-Reactive Protein < 0.5 (<1.0) mg/dL Total Protein (6.3-8.2) g/dL Albumin (3.5-5.0) g/dL Globulin (1.7-4.1) g/dL Albumin/Globulin Ratio (1.0-2.8) Lipase (23-300) U/L SARS-CoV-2 (PCR) (Negative) Urine Dip Bedside Urine Glucose Negative Bedside Urine Bilirubin - Negative Bedside Urine Ketone - Negative Urine Specific [place] 1.020 Bedside Urine Occult Blood - Negative Bedside Urine pH 6.0 Bedside Urine Protein - Negative Bedside Urine Urobilinogen - Negative Bedside Urine Nitrite - Negative Bedside Urine Leukocytes - Negative Esterase Imaging Data Chest x-ray: Radiologist's Impression: [address] [address] XRay Report Signed Patient: Joselito Waddell MR#: [id number] : 1980 Acct:[id number] Age/Sex: 40 / M Date of Service: 12/21/20 Loc: ED Accession Number: [id number] ?? Procedure: XR chest 1V Ordering Provider: Andrzej Ordonez MD PROCEDURE:? XR CHEST 1V ? INDICATIONS:? chest pain ? TECHNIQUE:? One view of the chest was acquired.? ? COMPARISON:? [facility], CR, XR CHEST 1V, 11/30/2020, 9:33. ? FINDINGS:? Surgical changes and devices:? None.? ? Lungs and pleura:? Lungs are clear.? No pleural effusions or pneumothorax.? ? Mediastinum:? Mediastinal contours appear normal.? Heart size is normal.? ? Bones and chest wall:? No suspicious bony lesions.? Overlying soft tissues appear unremarkable.? ? IMPRESSION:? ? No evidence of an acute cardiopulmonary abnormality. ? ? Dictated by: Percy Jolley D.O. on 12/21/2020 at 16:41 ? ? Approved by: Percy Jolley D.O. on 12/21/2020 at 16:42 ? ECG Data Interpretation: Normal sinus rhythm rate [address] elevation or depression <Chuy Herrera DO - Last Filed: 12/22/20 03:46> Differential Diagnosis Differential diagnosis: Likely fracture of rib, pneumothorax, costochondritis, chest pain and biliary colic Lab Data Labs: Lab Results 12/21/20 12/21/20 12/21/20 Range/Units 16:54 16:56 16:56 WBC 7.8 (4.5-11.0) X10^3/uL RBC 4.47 L (4.5-5.9) X10^6/uL Hgb 15.5 (13.5-17.5) g/dL Hct 43.5 (41-53) % MCV 97.3 (80-100) fL MCH 34.6 H (26-34) PG MCHC 35.5 (30-36) % RDW 12.7 (11.6-14.8) % Plt Count 197 (150-400) X10^3/uL Neut % (Auto) 59.3 (50-75) % Lymph % (Auto) 32.0 (25-40) % Rolette % (Auto) 6.5 (3-14) % Eos % (Auto) 0.9 L (2-4) % Baso % (Auto) 1.3 (0-2) % Neut # (Auto) 4600 (5063-5321) /uL Lymph # (Auto) 2500 (4509-4690) /uL Rolette # (Auto) 500 (0-900) /uL Eos # (Auto) 100 (0-450) /uL Baso # (Auto) 100 (0-100) /uL ESR (0-15) MM/HR D-Dimer 224 (<230) ng/mL Sodium 134 L (137-145) mmol/L Potassium 4.2 (3.4-5.1) mmol/L Chloride 101 (98-107) mmol/L Carbon Dioxide 25 (22-32) mmol/L BUN 14 (9-20) mg/dL Creatinine 0.75 (0.66-1.25) mg/dL Estimated GFR > 60.0 (>60) mL/min BUN/Creatinine Ratio 18.7 (6-22) Glucose 95 (70-100) mg/dL Calcium 8.8 (8.4-10.2) mg/dL Total Bilirubin 1.4 H (0.2-1.3) mg/dL AST 130 H (17-59) IU/L ALT 80 H (<50) IU/L Alkaline Phosphatase 155 H (38-126) U/L Total Creatine Kinase 73 (55-170) U/L CK-MB (CK-2) TNP CK-MB (CK-2) Rel Index TNP Troponin I < 0.012 (0.01-0.034) ng/mL C-Reactive Protein (<1.0) mg/dL Total Protein 7.4 (6.3-8.2) g/dL Albumin 4.0 (3.5-5.0) g/dL Globulin 3.4 (1.7-4.1) g/dL Albumin/Globulin Ratio 1.2 (1.0-2.8) Lipase (23-300) U/L SARS-CoV-2 (PCR) (Negative) 12/21/20 12/21/20 12/21/20 Range/Units 16:56 16:56 16:56 WBC (4.5-11.0) X10^3/uL RBC (4.5-5.9) X10^6/uL Hgb (13.5-17.5) g/dL Hct (41-53) % MCV (80-100) fL MCH (26-34) PG MCHC (30-36) % RDW (11.6-14.8) % Plt Count (150-400) X10^3/uL Neut % (Auto) (50-75) % Lymph % (Auto) (25-40) % Rolette % (Auto) (3-14) % Eos % (Auto) (2-4) % Baso % (Auto) (0-2) % Neut # (Auto) (0000-7484) /uL Lymph # (Auto) (1494-4487) /uL Rolette # (Auto) (0-900) /uL Eos # (Auto) (0-450) /uL Baso # (Auto) (0-100) /uL ESR 6 (0-15) MM/HR D-Dimer (<230) ng/mL Sodium (137-145) mmol/L Potassium (3.4-5.1) mmol/L Chloride (98-107) mmol/L Carbon Dioxide (22-32) mmol/L BUN (9-20) mg/dL Creatinine (0.66-1.25) mg/dL Estimated GFR (>60) mL/min BUN/Creatinine Ratio (6-22) Glucose (70-100) mg/dL Calcium (8.4-10.2) mg/dL Total Bilirubin (0.2-1.3) mg/dL AST (17-59) IU/L ALT (<50) IU/L Alkaline Phosphatase (38-126) U/L Total Creatine Kinase (55-170) U/L CK-MB (CK-2) CK-MB (CK-2) Rel Index Troponin I (0.01-0.034) ng/mL C-Reactive Protein (<1.0) mg/dL Total Protein (6.3-8.2) g/dL Albumin (3.5-5.0) g/dL Globulin (1.7-4.1) g/dL Albumin/Globulin Ratio (1.0-2.8) Lipase 80 (23-300) U/L SARS-CoV-2 (PCR) Negative (Negative) 12/21/20 12/21/20 Range/Units 16:56 21:03 WBC (4.5-11.0) X10^3/uL RBC (4.5-5.9) X10^6/uL Hgb (13.5-17.5) g/dL Hct (41-53) % MCV (80-100) fL MCH (26-34) PG MCHC (30-36) % RDW (11.6-14.8) % Plt Count (150-400) X10^3/uL Neut % (Auto) (50-75) % Lymph % (Auto) (25-40) % Rolette % (Auto) (3-14) % Eos % (Auto) (2-4) % Baso % (Auto) (0-2) % Neut # (Auto) (3847-7155) /uL Lymph # (Auto) (4981-6904) /uL Rolette # (Auto) (0-900) /uL Eos # (Auto) (0-450) /uL Baso # (Auto) (0-100) /uL ESR (0-15) MM/HR D-Dimer (<230) ng/mL Sodium (137-145) mmol/L Potassium (3.4-5.1) mmol/L Chloride (98-107) mmol/L Carbon Dioxide (22-32) mmol/L BUN (9-20) mg/dL Creatinine (0.66-1.25) mg/dL Estimated GFR (>60) mL/min BUN/Creatinine Ratio (6-22) Glucose (70-100) mg/dL Calcium (8.4-10.2) mg/dL Total Bilirubin (0.2-1.3) mg/dL AST (17-59) IU/L ALT (<50) IU/L Alkaline Phosphatase (38-126) U/L Total Creatine Kinase (55-170) U/L CK-MB (CK-2) CK-MB (CK-2) Rel Index Troponin I < 0.012 (0.01-0.034) ng/mL C-Reactive Protein < 0.5 (<1.0) mg/dL Total Protein (6.3-8.2) g/dL Albumin (3.5-5.0) g/dL Globulin (1.7-4.1) g/dL Albumin/Globulin Ratio (1.0-2.8) Lipase (23-300) U/L SARS-CoV-2 (PCR) (Negative) Urine Dip Bedside Urine Glucose Negative Bedside Urine Bilirubin - Negative Bedside Urine Ketone - Negative Urine Specific [place] 1.020 Bedside Urine Occult Blood - Negative Bedside Urine pH 6.0 Bedside Urine Protein - Negative Bedside Urine Urobilinogen - Negative Bedside Urine Nitrite - Negative Bedside Urine Leukocytes - Negative Esterase MDM Narrative Medical decision making narrative: I received sign-out from Dr. Ordonez at 6:00 p.m.. I performed extensive independent history and physical exam. Multiple diagnoses considered but not limited to myocardial infarction, pulmonary embolism, costochondritis, pneumonia, pericarditis. Cardiac ischemia thought unlikely given lack of exertional symptoms, multiple negative troponins, multiple nonischemic EKGs, resolution of symptoms with Toradol and low risk. Pericarditis thought unlikely given lack of inflammatory markers, classic EKG findings. Extensive discussion with the patient and at the bedside regarding patient's presentation, labs, EKGs. Importance of close follow-up is understood, return precautions discussed and questions have been answered to their apparent satisfaction Discharge Plan Departure Patient Disposition: Home Clinical Impression: Atypical chest pain Abdominal pain Qualifiers: Abdominal location: generalized Qualified Code(s): R10.84 - Generalized abdominal pain Instructions: DI for Abdominal Pain-Adult, DI for Atypical Chest Pain Activity Restrictions/Additional Instructions: *You have been diagnosed with [atypical chest pain and abdominal pain. Your labs, EKGs, imaging are all very reassuring and there is no evidence of heart attack, blood clot, bowel obstruction, gallbladder problem or other significant diagnosis which would require an immediate or specific intervention *What to do: *Please continue to take your regular medications as directed. [x ] New medication prescriptions sent to your pharmacy: [ [facility]] [ ] New medication written as a paper prescription [ ] No new medications given *Please follow up with your primary care provider in 2-3 days, call for an appointment. Let them know you were seen in the Emergency Department and that we ask that you be seen in follow up. We will electronically transmit a record of today's note if your PCP is in our system *If you do not have a primary care provider please contact the [facility] Resource line at [phone]. They will ask some questions about your medical history and help get you set up with a doctor in the community. *Return to Emergency Department if you should have any new, worsening or concerning symptoms, such as [fever greater than 101 F, shaking chills, worsening pain, persistent vomiting or other bothersome symptoms] Prescriptions: New hydrocodone-acetaminophen 5-325 mg tablet 1 tab PO Q4-6H PRN (Reason: pain) Qty: 10 RF: 0 ketorolac 10 mg tablet 10 mg PO Q6H PRN (Reason: pain) Qty: 14 RF: 0 No Action pantoprazole 40 mg Tablet,Delayed Release (Dr/Ec) 40 mg PO BID Qty: 90 RF: 1 atenolol 25 mg tablet 75 mg PO QAM RF: 0 Referrals: Gin Newsome MD [Primary Care Provider] - Stand Alone Forms: Work Release Note
[2020-12-21] MEDS: LORazepam 2 MG/ML INJ 1 MG IV (18:09)
[2020-12-21] MEDS: NITROGLYCERIN OINT 1 INCH/GM OINT...G. TOP (18:09)
[2020-12-21 19:18] LABS: Lipase 80 U/L (23-300)
[2020-12-21 21:37] LABS: Troponin I < 0.012 ng/mL (0.01-0.034)
--- NOTE | 2020-12-21 21:44 | DI.US.S_ITS ---
PROCEDURE: US ABDOMEN LIMITED INDICATIONS: EPIGASTRIC/RIGHT UPPER QUADRANT PAIN. RADIATING TO BACK. TECHNIQUE: Real-time focused scanning was performed of the abdomen, with image documentation. COMPARISON: None. FINDINGS: Increased hepatic parenchymal echogenicity indicative of diffuse hepatic steatosis. No focal hepatic mass on the provided images. No intrahepatic or extrahepatic biliary ductal dilatation. The gallbladder is normally distended without shadowing gallstone, sludge, wall thickening, or pericholecystic fluid. Visualized portions of the pancreas are normal. IMPRESSION: No findings of cholecystitis. Moderate to severe hepatic steatosis. Dictated by: Isacc Garrett M.D. on 12/21/2020 at 22:55 Approved by: Isacc Garrett M.D. on 12/21/2020 at 22:56
[2020-12-21 22:04] LABS: C-Reactive Protein Quant < 0.5 mg/dL (<1.0)
[2020-12-21 22:16] LABS: D Dimer 224 ng/mL (<230)
[2020-12-21 22:25] LABS: Erythrocyte Sedimentation Rate 6 MM/HR (0-15)
--- NOTE | 2020-12-21 22:54 | DI.RAD.S_ITS ---
PROCEDURE: XR ABDOMEN MIN 2V INDICATIONS: Abdominal pain TECHNIQUE: 2 views of the abdomen were acquired. COMPARISON: None. FINDINGS: Surgical changes and devices: None. Bowel: No pneumoperitoneum. The bowel gas pattern is normal. Soft tissues: No masses; visualized solid organ contours appear normal in size. No suspicious abdominal calcifications. Bones: No suspicious bony abnormalities. IMPRESSION: No acute finding. Dictated by: Isacc Garrett M.D. on 12/21/2020 at 23:09 Approved by: Isacc Garrett M.D. on 12/21/2020 at 23:09
[2020-12-21] MEDS: KETOROLAC 30 MG/ML VIAL 15 MG IV (23:05)
[2020-12-22] VITALS: PULSE 72; RESP 22; O2SAT 94
[2020-12-22 00:01] VITALS: BP 134/71; PULSE 76; RESP 23; O2SAT 95
[2020-12-22 00:30] VITALS: BP 134/76; PULSE 76; RESP 23; O2SAT 95
[2020-12-22] MEDS: HYDROCODONE/ACET 5/325 PREPACK 1 BOTTLE MISC (00:48)
== END 2020-12-22 00:52 | disposition home or self-care (01) ==
PROVIDERS: Emergency Medicine; Emergency Provider Emergency Medicine; PCP Student in an Organized Health Care Education/Training Program
DX: R07.89 Other chest pain (principal); R10.84 Generalized abdominal pain; R11.0 Nausea; R06.02 Shortness of breath; Z20.822 Contact with and (suspected) exposure to COVID-19
CPT/HCPCS: 36415; 71045; 74019; 76705; 80053; 81003; 82550; 83690; 84484; 85025; 85379; 85651; 86140; 87635; 93005; 93010; 96374; 96375; 99284; C9803; J1885; J2060

== ENCOUNTER 2021-08-17 19:51 | Emergency (ER) | payer OTHER, SELFPAY ==
[2020-04-29 20:40] VITALS: BMI 25.4
[2021-08-17 19:55] VITALS: BP 163/93; PULSE 102; RESP 20; TEMP 37.1; O2SAT 97
[2021-08-17] MEDS: OXYCODONE/ACETAMINOPHEN 5/325 TABLET 1 TAB PO (22:26)
[2021-08-17] MEDS: IBUPROFEN 400 MG TABLET PO (22:27)
[2021-08-17] MEDS: BUPIVACAINE 0.5% W/ EPI (PF) 30 ML VIAL 5 ML SUBCUT (22:29)
[2021-08-17] MEDS: OXYCODONE/APAP 5/325 PREPACK 1 BOTTLE MISC (22:33)
[2021-08-17] MEDS: BACITRACIN OINT 0.9 GM PCKT 5 APPLIC TOP (22:33)
--- NOTE | 2021-08-17 23:31 | ED_ITS ---
HPI - Wound/Laceration General Chief Complaint: Wound/Laceration Stated Complaint: Dog bite to face Time Seen by Provider: 08/17/21 22:08 Source: patient Mode of arrival: Ambulatory History of Present Illness HPI narrative: 41-year-old gentleman with no significant medical history presents after being bit in the face by a dog. Was a friend's dog with him he was playing. There are 2 large lacerations around the frenulum of the upper lip. A minor scratch to the lower lip and to the left side of the face. Bleeding is controlled. The lacerations are in to the obicularis telma muscle but they are not through and through. Related Data Home Medications Medication Instructions Recorded Confirmed atenolol 25 mg tablet 75 mg PO QAM 11/30/20 Previous Rx's Medication Instructions Recorded pantoprazole 40 mg tablet,delayed 40 mg PO BID #90 tabs 05/01/20 release hydrocodone 5 mg-acetaminophen 325 1 tab PO Q4-6H PRN pain #10 tabs 12/22/20 mg tablet ketorolac 10 mg tablet 10 mg PO Q6H PRN pain #14 tabs 12/22/20 amoxicillin-potassium clavulanate 1 tab PO BID #10 tabs 08/17/21 1,000 mg-62.5 mg tablet,ext.rel 12hr (Augmentin XR) Allergies Allergy/AdvReac Type Severity Reaction Status Date / Time No Known Drug Allergies Allergy Verified 12/21/20 16:57 Review of Systems Review of Systems Narrative: No fever, cough, chills, vomiting, diarrhea, headaches, abdominal pain, lower extremity edema, skin rashes Remainder of complete review of systems is otherwise unremarkable except for that included in the HPI. Patient History Medical History Alcohol use disorder Anxiety Asthma Chronic GERD Hypertension Family History Mother Hypertension Father Hypertension Social History marital status: unmarried,living together household members: significant other and children occupational status: employed Smoking Status: Current every day smoker alcohol intake: current substance use type: does not use Smoking Status: Current every day smoker alcohol intake frequency: 3 or more drinks per day Substance Use Type: marijuana Exam Initial Vital Signs Initial Vital Signs: Vital Signs Temperature 98.7 F 08/17/21 19:55 Pulse Rate 102 H 08/17/21 19:55 Respiratory Rate 20 08/17/21 19:55 Blood Pressure 163/93 H 08/17/21 19:55 Pulse Oximetry 97 08/17/21 19:55 Oxygen Delivery Method 08/17/21 19:55 General: Alert appropriate in no acute distress HEENT: Lacerations over the upper lip around the frenulum to the right side is 5 cm and crosses the vermilion border, to the left side is 3 cm and crosses the vermilion border. Into muscle. Respiratory: Able to speak in full sentences, no obvious respiratory distress Skin: No obvious rashes, warm and dry Neurologic: Grossly intact no obvious asymmetries or abnormalities Psych: appropriate insight and affect, cooperative Procedures Laceration Repair upper lip : Time of procedure: 23:40 Site: lip Side (If applicable): left and right Size (cm): 8 (total, both wounds) Description: linear and involves digna border Depth: involves muscle layer Local Anesthetic: bupivacaine 0.5% and with epi Amount of anesthesia used (mL): 5 Pre-repair: wound explored and irrigated extensively Skin layer closed with: nylon Skin layer suture size: 4-0 Number of sutures: 10 Technique: simple, interrupted Subcutaneous layer closed with: vicryl Subcutaneous layer suture size: 4-0 Number of sutures: 2 Technique: other (horizontal mattress to closoe circular muscle layer) Number of sutures: 2 Course Orders Ordered: Discontinued Medications Bacitracin (Bacitracin Oint 0.9 Gm Pckt) 5 applic TOP NOW ONE Stop: 08/17/21 22:15 Last Admin: 08/17/21 22:33 Dose: 5 applic Documented By: ROMIE Bupivacaine HCl/Epinephrine Bitart (Bupivacaine 0.5% W/ Epi (Pf) 30 Ml Vial) 5 ml SUBCUT NOW ONE Stop: 08/17/21 22:20 Last Admin: 08/17/21 22:29 Dose: 5 ml Documented By: ROMIE Diphtheria/Tetanus/Acell Pertussis (Tet,Diph,Pertuss(Acell),Vac/Pf 0.5 Ml Syringe) 0.5 ml IM .ONCE ONE Stop: 08/17/21 23:36 Hydromorphone HCl (Hydromorphone 1 Mg Inj) 1 mg IV NOW ONE Stop: 08/17/21 23:36 Ibuprofen (Ibuprofen 400 Mg Tablet) 400 mg PO NOW ONE Stop: 08/17/21 22:13 Last Admin: 08/17/21 22:27 Dose: 400 mg Documented By: ROMIE Oxycodone/Acetaminophen (Oxycodone/Acetaminophen 5/325 Tablet) 1 tab PO NOW ONE Stop: 08/17/21 22:13 Last Admin: 08/17/21 22:26 Dose: 1 tab Documented By: ROMIE Oxycodone/Acetaminophen (Oxycodone/Apap 5/325 Prepack) 1 bottle MISC SEEINSTR ONE Stop: 08/17/21 22:13 Last Admin: 08/17/21 22:33 Dose: 1 bottle Documented By: ROMIE Vital Signs Vital signs: Vital Signs - 8 hr 08/17/21 19:55 Temperature 98.7 F Pulse Rate 102 H Respiratory Rate 20 Blood Pressure 163/93 H Pulse Oximetry 97 Oxygen Delivery Method Room Air MDM - Wound/Laceration MDM Narrative Medical decision making narrative: Otherwise healthy 41-year-old gentleman with 2 lacerations from a dog bite to the upper lip. Muscle layer closed without complication and nice aesthetic closure of the wounds superficially. Recommended simple interrupted sutures taken out in 7 days. Will give him 5 days of Augmentin. Tetanus status is updated today. Signs and symptoms of infection complication reviewed in home return Discharge Plan Departure Clinical Impression: Laceration of lip Dog bite Qualifiers: Encounter type: initial encounter Qualified Code(s): W54.0XXA - Bitten by dog, initial encounter Instructions: DI for Laceration Repair Activity Restrictions/Additional Instructions: Thank you for coming in today I am sorry that the dog bit your upper lip. It was layered repair but it does look like it has had a nice aesthetic result. There stitches inside in the lip muscle that will dissolve over the next 4-6 weeks. There 10 superficial stitches that will need to be removed in about 7 days. Your welcome to return to the emergency department or follow-up with your regular doctor. Because this was a dog, I am going to suggest 5 days of Augmentin to prevent any infection. Typically, infections around the middle of your face are uncommon because there is so much blood flow to that area. The prescription was electronically transmitted to [facility] in [place] Using 400 mg of ibuprofen (2 [id number] pills) and 1 Tylenol every 6 hours can be very helpful in controlling pain. Ice can also be helpful if there is significant swelling tomorrow If you find that you are getting worse or develop any new symptoms, please feel free to return to the emergency department for further evaluation. Prescriptions: New amoxicillin-pot clavulanate [Augmentin XR] 1,000-62.5 mg tablet extended release 12 hr 1 tab PO BID Qty: 10 0RF No Action pantoprazole 40 mg Tablet,Delayed Release (Dr/Ec) 40 mg PO BID Qty: 90 1RF atenolol 25 mg tablet 75 mg PO QAM hydrocodone-acetaminophen 5-325 mg tablet 1 tab PO Q4-6H PRN (Reason: pain) Qty: 10 0RF ketorolac 10 mg tablet 10 mg PO Q6H PRN (Reason: pain) Qty: 14 0RF Referrals: Gin Newsome MD [Primary Care Provider] -
[2021-08-17] MEDS: TET,DIPH,PERTUSS(ACELL),VAC/PF 0.5 ML SYRINGE IM (23:55)
== END 2021-08-18 00:05 | disposition home or self-care (01) ==
PROVIDERS: Emergency Provider Emergency Medicine; PCP Student in an Organized Health Care Education/Training Program
DX: S01.85XA Open bite of other part of head, initial encounter (principal); W54.0XXA Bitten by dog, initial encounter; Z23 Encounter for immunization
CPT/HCPCS: 13152; 13153; 90471; 99283; 90715

== ENCOUNTER 2021-08-21 12:07 | Emergency (ER) | payer OTHER, SELFPAY ==
[2020-04-29 20:40] VITALS: BMI 25.4
[2021-08-21 12:30] VITALS: BP 117/112; PULSE 87; RESP 18; TEMP 36.8; O2SAT 99; BMI 28.1
--- NOTE | 2021-08-21 12:39 | PC.NURSE ---
Pt bit by dog 4 days ago, chaya & migue at [facility]. Started antibiotics yesterday. Increased pain, swelling and soreness today. Denies fevers at home. Feels like his jaw is clinched. Tetanus given recently, per pt.
[2021-08-21 12:40] VITALS: BP 165/103; PULSE 76; RESP 18; O2SAT 98
--- NOTE | 2021-08-21 12:48 | ED_ITS ---
HPI - Skin/Abscess/Foreign Bdy <Santo Majano PA-C - Last Filed: 08/21/21 12:54> General Chief complaint: Animal Bite Stated complaint: Facial Laceration,Stitches Opening, Pain in Jaw Time Seen by Provider: 08/21/21 12:23 Source: patient Mode of arrival: Ambulatory History of Present Illness HPI narrative: 41-year-old male presents to the emergency department for wound and suture check. Patient was here 4 days ago due to a dog bite to the face where he received 10 superficial and 4 deep sutures. Patient states that he was rolling in bed and was concerned that the sutures had ?opened up? and was requesting a w ound check. Denies any purulent discharge or drainage, swelling, spreading erythema, or any other concerning signs or symptoms. Denies any fevers, nausea, vomiting, or any other systemic symptoms. Patient was prescribed Augmentin during initial visit and has been taking as prescribed. Related Data Home Medications Medication Instructions Recorded Confirmed atenolol 25 mg tablet 75 mg PO QAM 11/30/20 Previous Rx's Medication Instructions Recorded pantoprazole 40 mg tablet,delayed 40 mg PO BID #90 tabs 05/01/20 release hydrocodone 5 mg-acetaminophen 325 1 tab PO Q4-6H PRN pain #10 tabs 12/22/20 mg tablet ketorolac 10 mg tablet 10 mg PO Q6H PRN pain #14 tabs 12/22/20 amoxicillin-potassium clavulanate 1 tab PO BID #10 tabs 08/17/21 1,000 mg-62.5 mg tablet,ext.rel 12hr (Augmentin XR) Allergies Allergy/AdvReac Type Severity Reaction Status Date / Time No Known Drug Allergies Allergy Verified 12/21/20 16:57 Review of Systems <Santo Majano PA-C - Last Filed: 08/21/21 12:54> Review of Systems Narrative: GENERAL: Denies chills, fatigue, malaise, fever, sweats. HEENT: Denies sinus pain, ear pain, sore throat, difficulty swallowing, dizziness. RESPIRATORY: Denies dyspnea, cough, wheezing, hemoptysis, sputum. CARDIOVASCULAR: Denies chest pain, palpitations, orthopnea, edema, GASTROINTESTINAL: Denies nausea, vomiting, abdominal pain, diarrhea, constipation, melena. : Denies dysuria, frequency, incontinence, hematuria, urinary retention. MUSCULOSKELETAL: denies weakness, joint pain, or bony pain SKIN: Lip pain, denies purulent drainage NEUROLOGIC: Denies weakness, headache, numbness, change in speech, confusion, seizures, incoordination. PSYCHIATRIC: No concerning psychosocial issues. 12 point review of systems is negative except for those stated above Patient History <Santo Majano PA-C - Last Filed: 08/21/21 12:54> Medical History Alcohol use disorder Anxiety Asthma Chronic GERD Hypertension Family History Mother Hypertension Father Hypertension Social History marital status: unmarried,living together household members: significant other and children occupational status: employed Smoking Status: Current every day smoker alcohol intake: current substance use type: does not use Smoking Status: Current every day smoker alcohol intake frequency: 3 or more drinks per day Substance Use Type: marijuana Exam <Santo Majano PA-C - Last Filed: 08/21/21 12:54> Narrative Exam Narrative: GENERAL: Well-developed patient, in mild distress. HEAD: Atraumatic. Normocephalic. EYES: Pupils equal round and reactive. Extraocular motions intact. No scleral icterus. No injection or drainage. ENT: Nose without bleeding, purulent drainage. Throat without erythema, tonsillar hypertrophy or exudate. Airway patent. NECK: Trachea midline. Non tender CARDIOVASCULAR: Regular rate and rhythm without murmurs, gallops, or rubs. RESPIRATORY: Clear to auscultation. Breath sounds equal bilaterally. No wheezes, rales, or rhonchi. GASTROINTESTINAL: Abdomen soft, non-tender, nondistended. EXTREMITIES: No edema or joint tenderness. BACK: Nontender without deformity or crepitance. No flank tenderness. NEURO: AOx3. SKIN: two lacerations to upper lip, sutures in place without any signs of dehiscence, no purulent drainage, no spreading erythema Initial Vital Signs Initial Vital Signs: Vital Signs Temperature 98.3 F 08/21/21 12:30 Pulse Rate 87 08/21/21 12:30 Respiratory Rate 18 08/21/21 12:30 Blood Pressure 117/112 H 08/21/21 12:30 Pulse Oximetry 99 08/21/21 12:30 Oxygen Delivery Method 08/21/21 12:30 <Chuy Herrera DO - Last Filed: 08/29/21 20:35> Initial Vital Signs Initial Vital Signs: Vital Signs Temperature 98.3 F 08/21/21 12:30 Pulse Rate 87 08/21/21 12:30 Respiratory Rate 18 08/21/21 12:30 Blood Pressure 117/112 H 08/21/21 12:30 Pulse Oximetry 99 08/21/21 12:30 Oxygen Delivery Method 08/21/21 12:30 Course <Santo Majano PA-C - Last Filed: 08/21/21 12:54> Vital Signs Vital signs: Vital Signs - 8 hr 08/21/21 12:30 Temperature 98.3 F Pulse Rate 87 Respiratory Rate 18 Blood Pressure 117/112 H Pulse Oximetry 99 Oxygen Delivery Method Room Air <Chuy Herrera DO - Last Filed: 08/29/21 20:35> Vital Signs Vital signs: Vital Signs - 8 hr 08/21/21 12:30 Temperature 98.3 F Pulse Rate 87 Respiratory Rate 18 Blood Pressure 117/112 H Pulse Oximetry 99 Oxygen Delivery Method Room Air MDM - Skin/Abscess/Foreign Bdy <Santo Majano PA-C - Last Filed: 08/21/21 12:54> MDM Narrative Medical decision making narrative: 41-year-old male presents to the emergency department due to wound check. Sutures appear to be well in place without any evidence of dehiscence of the wound. Patient states he will return as recommended in 3 days for suture removal. Patient has been prescribed Augmentin during the initial visit which I recommend he continue taking as prescribed. No evidence of any kind of worsening infection on physical exam or history. Discharge Plan Departure Patient Disposition: Home Clinical Impression: Visit for wound check Instructions: DI for Suture Removal Activity Restrictions/Additional Instructions: Thank you for coming to the [facility] Emergency Department today. The sutures appeared to be well in place and it does not look like the wound has ?opened up?. Please continue taking the Augmentin your prescribed during her initial visit. As we discussed you are welcome to return in 3 days for possible suture removal but you are also welcome to go to primary care provider. The wound appears to be healing well. Please read the attached instructions for gentle guidance regarding keeping the wound clean. I hope you feel better soon. Prescriptions: No Action pantoprazole 40 mg Tablet,Delayed Release (Dr/Ec) 40 mg PO BID Qty: 90 1RF atenolol 25 mg tablet 75 mg PO QAM hydrocodone-acetaminophen 5-325 mg tablet 1 tab PO Q4-6H PRN (Reason: pain) Qty: 10 0RF ketorolac 10 mg tablet 10 mg PO Q6H PRN (Reason: pain) Qty: 14 0RF amoxicillin-pot clavulanate [Augmentin XR] 1,000-62.5 mg tablet extended release 12 hr 1 tab PO BID Qty: 10 0RF Referrals: Gin Newsome MD [Primary Care Provider] - Visit Report Forms: Patient Portal/API <Chuy Herrera DO - Last Filed: 08/29/21 20:35> [facility] Att[facility]: I was immediately available in the department for consultation. This documentation has been reviewed and I agree with assessment and plan. Supervised by Chuy Herrera DO
== END 2021-08-21 13:02 | disposition home or self-care (01) ==
PROVIDERS: Emergency Provider Physician Assistant Medical; PCP Student in an Organized Health Care Education/Training Program
DX: Z48.00 Encounter for change or removal of nonsurgical wound dressing (principal)
CPT/HCPCS: 99281

== ENCOUNTER 2021-10-13 11:29 | Emergency (ER) | payer OTHER, SELFPAY ==
[2020-04-29 20:40] VITALS: BMI 25.4
[2021-10-13] VITALS (23 sets, daily range): BP systolic 150–191; BP diastolic 89–129; PULSE 87–107; RESP 12–28; TEMP 36.5; O2SAT 95–99; BMI 29.6
--- NOTE | 2021-10-13 11:49 | DI.RAD.S_ITS ---
PROCEDURE: XR CHEST 1V INDICATIONS: chest pain TECHNIQUE: One view of the chest was acquired. COMPARISON: [facility], CR, XR CHEST 1V, 12/21/2020, 16:57. FINDINGS: Surgical changes and devices: None. Lungs and pleura: Lungs are clear. No pleural effusions or pneumothorax. Mediastinum: Mediastinal contours appear normal. Heart size is normal. Bones and chest wall: No suspicious bony lesions. Overlying soft tissues appear unremarkable. IMPRESSION: No acute cardiopulmonary disease. Dictated by: Saad Chiang M.D. on 10/13/2021 at 12:11 Approved by: Saad Chiang M.D. on 10/13/2021 at 12:12
[2021-10-13 11:59] LABS: Add Manual Diff / Slide Review NO; Basophils Absolute Auto 100 /uL (0-100); Basophils Percent Auto 0.7 % (0-2); Eosinophils Absolute Auto 100 /uL (0-450); Eosinophils Percent Auto 1.4 % (2-4); Hematocrit 41.3 % (41-53); Hemoglobin 14.8 g/dL (13.5-17.5); Lymphocytes Absolute Auto 2100 /uL (1100-4500); Lymphocytes Percent Auto 28.1 % (25-40); Mean Corpuscular HGB Conc 35.8 % (30-36); Mean Corpuscular Hemoglobin 33.8 PG (26-34); Mean Corpuscular Volume 94.7 fL (80-100); Monocytes Absolute Auto 500 /uL (0-900); Monocytes Percent Auto 6.7 % (3-14); Neutrophils Absolute Auto 4700 /uL (1500-7000); Neutrophils Percent Auto 63.1 % (50-75); Platelet Count 168 X10^3/uL (150-400); Red Blood Cell Count 4.36 X10^6/uL (4.5-5.9); Red Cell Distribution Width 12.9 % (11.6-14.8); White Blood Cell Count 7.4 X10^3/uL (4.5-11.0)
[2021-10-13 12:09] LABS: Alanine Aminotransferase 42 IU/L (<50); Albumin 3.6 g/dL (3.5-5.0); Albumin Globulin Ratio 1.2 (1.0-2.8); Alkaline Phosphatase 134 U/L (38-126); Aspartate Aminotransferase 64 IU/L (17-59); BUN Creatinine Ratio 20.8 (6-22); Bilirubin Total 1.4 mg/dL (0.2-1.3); Blood Urea Nitrogen 15 mg/dL (9-20); Calcium 8.4 mg/dL (8.4-10.2); Carbon Dioxide 25 mmol/L (22-32); Chloride 105 mmol/L (98-107); Creatine Kinase 69 U/L (55-170); Estimated Glomerular Filt Rate > 60 mL/min (>60); Globulin 3.1 g/dL (1.7-4.1); Glucose 102 mg/dL (70-100); HEMOLYSIS 29 (0-50); Lipase 73 U/L (23-300); Magnesium 1.5 mg/dL (1.6-2.3); Potassium 3.8 mmol/L (3.4-5.1); Sodium 134 mmol/L (137-145); Total Protein 6.7 g/dL (6.3-8.2)
[2021-10-13 12:20] LABS: Troponin I < 0.012 ng/mL (0.01-0.034)
[2021-10-13 12:24] LABS: COVID19 -Nasal RAPID Negative (Negative)
--- NOTE | 2021-10-13 14:16 | PC.NURSE ---
Pt reports chest pressure, dizziness, and tingling to both arms, but more noticeably in his left arm that has been intermittent for the past 2 days. Pt reports everything resolved last night with rest, but then today while at work with some mild exertion chest pressure and tingling came back. Pt currently reports 5/10 chest pressure. Provider Rafy notified.
[2021-10-13] MEDS: ASPIRIN 81 MG CHEW TAB 324 MG PO (14:50)
[2021-10-13] MEDS: NITROGLYCERIN 0.4 MG SL TAB SL ×3 (14:51→15:01)
[2021-10-13 14:53] LABS: NT-proBNP (BNP-Adult 18+) 65 pg/mL (<125)
[2021-10-13 14:55] LABS: Troponin I < 0.012 ng/mL (0.01-0.034)
--- NOTE | 2021-10-13 14:55 | PC.NURSE ---
Pt reports taking 20mg of lisinopril this morning because of not feeling right. Pt normally takes 40mg of lisinopril at night.
--- NOTE | 2021-10-13 15:00 | PC.NURSE ---
Addendum entered by Eric Alicia R.N. 10/13/21 15:02: Pt given 3rd dose on nitro. Reports 3/10 chest pressure. BP 160/98 and HR at 110. Original Note: Pt received 1st dose of nitro with pressure reported at a 5/10. After second dose of nitro, pt reports 3/10 pressure.
--- NOTE | 2021-10-13 15:09 | ED.CHESTPAIN ---
HPI - Chest Pain <SHALA Gonsalez - Last Filed: 10/13/21 16:07> General Chief Complaint: Chest Pain Stated Complaint: Chest pain, rapid heart beat Time Seen by Provider: 10/13/21 14:13 Source: patient Mode of arrival: Ambulatory Limitations: no limitations History of Present Illness HPI narrative: 41-year-old male, former smoker with history of hypertension, presents to emergency department with chest pain, bilateral arm tingling on and off x1 day. Patient initially experienced this yesterday afternoon while folding clothes at home. Patient denies any extraneous physical activity, but does report significant stress from work and home. Patient arrived to work early this morning and shortly after started developing similar symptoms that caused him to come into the emergency department. Patient had previously taking a leave of absence from work and reports that his health significantly improved during his time away. No familial history of cardiac . Patient endorses that he drinks a significant amount of alcohol at night to deal with his stress, but did stop smoking years ago. Related Data Home Medications Medication Instructions Recorded Confirmed atenolol 25 mg tablet 75 mg PO QAM 11/30/20 Previous Rx's Medication Instructions Recorded pantoprazole 40 mg tablet,delayed 40 mg PO BID #90 tabs 05/01/20 release hydrocodone 5 mg-acetaminophen 325 1 tab PO Q4-6H PRN pain #10 tabs 12/22/20 mg tablet ketorolac 10 mg tablet 10 mg PO Q6H PRN pain #14 tabs 12/22/20 amoxicillin-potassium clavulanate 1 tab PO BID #10 tabs 08/17/21 1,000 mg-62.5 mg tablet,ext.rel 12hr (Augmentin XR) Allergies Allergy/AdvReac Type Severity Reaction Status Date / Time No Known Drug Allergies Allergy Verified 10/13/21 11:48 Review of Systems <SHALA Gonsalez - Last Filed: 10/13/21 16:07> Review of Systems Narrative: Narrative: GENERAL: Denies chills, fatigue, fever, sweats. See HPI HEENT: Denies sinus pain, ear pain, sore throat, difficulty swallowing, dizziness. RESPIRATORY: Denies dyspnea, cough, wheezing, sputum. CARDIOVASCULAR: Denies palpitations, edema. GASTROINTESTINAL: Denies nausea, vomiting, abdominal pain, diarrhea, constipation. : Denies dysuria, frequency, incontinence, hematuria, urinary retention, flank pain. MSK: Denies weakness, joint pain, or bony pain. SKIN: Denies rash, skin lesions, or pruritis. NEUROLOGIC: Denies weakness, dizziness, headache, numbness, confusion. PSYCHIATRIC: No concerning psychosocial issues. Patient History <SHALA Gonsalez - Last Filed: 10/13/21 16:07> Medical History Alcohol use disorder Anxiety Asthma Chronic GERD Hypertension Family History Mother Hypertension Father Hypertension Social History marital status: unmarried,living together household members: significant other and children occupational status: employed Smoking Status: Former smoker alcohol intake: current substance use type: does not use Smoking Status: Former smoker alcohol intake frequency: 3 or more drinks per day Alcohol type: beer and hard liquor Substance Use Type: marijuana Exam <SHALA Gonsalez - Last Filed: 10/13/21 16:07> Narrative Exam Narrative: Exam Narrative: GENERAL: This is a well-nourished, well-developed patient, in mild distress HEAD: Atraumatic. Normocephalic. EYES: Pupils equal round and reactive. Extraocular motions intact. No scleral icterus, injection or drainage. ENT: Nose without bleeding, purulent drainage. Throat without erythema, tonsillar hypertrophy or exudate. Airway patent. NECK: Trachea midline. No JVD or lymphadenopathy. Nontender. CARDIOVASCULAR: Regular rate and rhythm without murmurs, peripheral pulses intact, cap refill <2 sec. RESPIRATORY: Breath sounds equal and clear bilaterally. No wheezes, rales, or rhonchi. No cough. No increased respiratory effort. No accessory muscle use. GASTROINTESTINAL: Abdomen soft, non-tender, nondistended without guarding or rebound. No suprapubic pain. MSK: Moves all extremities. Normal range of motion, no clubbing or edema. Neurovascularly intact. Negative Spurling's test. NEURO: A&O x 3. SKIN: Warm, dry, no rashes or lesions noted. Initial Vital Signs Initial Vital Signs: Vital Signs Temperature 97.7 F 10/13/21 11:49 Pulse Rate 89 10/13/21 11:49 Respiratory Rate 18 10/13/21 11:49 Blood Pressure 191/119 H 10/13/21 11:49 Pulse Oximetry 98 10/13/21 11:49 Oxygen Delivery Method 10/13/21 11:49 Reviewed <Angelina Hillman DO - Last Filed: 10/17/21 08:29> Initial Vital Signs Initial Vital Signs: Vital Signs Temperature 97.7 F 10/13/21 11:49 Pulse Rate 89 10/13/21 11:49 Respiratory Rate 18 10/13/21 11:49 Blood Pressure 191/119 H 10/13/21 11:49 Pulse Oximetry 98 10/13/21 11:49 Oxygen Delivery Method 10/13/21 11:49 Course <SHALA Gonsalez - Last Filed: 10/13/21 16:07> Orders Ordered: Discontinued Medications Aspirin (Aspirin 81 Mg Chew Tab) 324 mg PO NOW ONE Stop: 10/13/21 14:39 Last Admin: 10/13/21 14:50 Dose: 324 mg Documented By: MADELIN Nitroglycerin (Nitroglycerin 0.4 Mg Sl Tab) 0.4 mg SL [id number] PRN PRN Reason: Chest Pain Last Admin: 10/13/21 15:01 Dose: 0.4 mg Documented By: Admin: 10/13/21 14:56 Dose: 0.4 mg Documented By: Admin: 10/13/21 14:51 Dose: 0.4 mg Documented By: MADELIN Vital Signs Vital signs: Vital Signs - 8 hr 10/13/21 11:49 10/13/21 14:10 10/13/21 14:11 Temperature 97.7 F Pulse Rate 89 92 H 97 H Respiratory Rate 18 Blood Pressure 191/119 H Pulse Oximetry 98 98 99 Oxygen Delivery Method Room Air 10/13/21 14:11 10/13/21 14:51 10/13/21 14:56 Temperature Pulse Rate 88 103 H Respiratory Rate Blood Pressure 173/102 H 178/118 H 159/106 H Pulse Oximetry Oxygen Delivery Method 10/13/21 15:01 10/13/21 14:30 10/13/21 14:30 Temperature Pulse Rate 101 H 87 Respiratory Rate 28 H Blood Pressure 165/101 H 189/120 H Pulse Oximetry 98 Oxygen Delivery Method 10/13/21 14:50 10/13/21 14:50 10/13/21 14:51 Temperature Pulse Rate 89 90 Respiratory Rate 22 13 Blood Pressure 176/113 H Pulse Oximetry 98 98 Oxygen Delivery Method 10/13/21 14:51 10/13/21 14:54 10/13/21 14:54 Temperature Pulse Rate 96 H Respiratory Rate 19 Blood Pressure 178/118 H 172/111 H Pulse Oximetry 96 Oxygen Delivery Method 10/13/21 14:57 10/13/21 14:57 10/13/21 15:00 Temperature Pulse Rate 103 H Respiratory Rate 12 Blood Pressure 159/106 H 166/102 H Pulse Oximetry 97 Oxygen Delivery Method 10/13/21 15:00 10/13/21 15:01 10/13/21 15:01 Temperature Pulse Rate 101 H 103 H Respiratory Rate 18 16 Blood Pressure 165/101 H Pulse Oximetry 96 97 Oxygen Delivery Method Room Air 10/13/21 15:03 10/13/21 15:03 10/13/21 15:06 Temperature Pulse Rate 107 H 107 H Respiratory Rate 21 20 Blood Pressure 160/98 H Pulse Oximetry 95 96 Oxygen Delivery Method 10/13/21 15:06 10/13/21 15:09 10/13/21 15:09 Temperature Pulse Rate 101 H Respiratory Rate 21 Blood Pressure 151/93 H 156/92 H Pulse Oximetry 96 Oxygen Delivery Method 10/13/21 15:12 10/13/21 15:12 10/13/21 15:15 Temperature Pulse Rate 95 H 94 H Respiratory Rate 16 15 Blood Pressure 162/89 H Pulse Oximetry 96 97 Oxygen Delivery Method 10/13/21 15:15 Temperature Pulse Rate Respiratory Rate Blood Pressure 159/99 H Pulse Oximetry Oxygen Delivery Method <Angelina Hillman DO - Last Filed: 10/17/21 08:29> Orders Ordered: Discontinued Medications Aspirin (Aspirin 81 Mg Chew Tab) 324 mg PO NOW ONE Stop: 10/13/21 14:39 Last Admin: 10/13/21 14:50 Dose: 324 mg Documented By: MADELIN Nitroglycerin (Nitroglycerin 0.4 Mg Sl Tab) 0.4 mg SL [id number] PRN PRN Reason: Chest Pain Last Admin: 10/13/21 15:01 Dose: 0.4 mg Documented By: Admin: 10/13/21 14:56 Dose: 0.4 mg Documented By: Admin: 10/13/21 14:51 Dose: 0.4 mg Documented By: MADELIN Vital Signs Vital signs: Vital Signs - 8 hr 10/13/21 11:49 10/13/21 14:10 10/13/21 14:11 Temperature 97.7 F Pulse Rate 89 92 H 97 H Respiratory Rate 18 17 22 Blood Pressure 191/119 H Pulse Oximetry 98 98 99 Oxygen Delivery Method Room Air 10/13/21 14:11 10/13/21 14:51 10/13/21 14:56 Temperature Pulse Rate 88 103 H Respiratory Rate Blood Pressure 173/102 H 178/118 H 159/106 H Pulse Oximetry Oxygen Delivery Method 10/13/21 15:01 10/13/21 14:30 10/13/21 14:30 Temperature Pulse Rate 101 H 87 Respiratory Rate 28 H Blood Pressure 165/101 H 189/120 H Pulse Oximetry 98 Oxygen Delivery Method 10/13/21 14:50 10/13/21 14:50 10/13/21 14:51 Temperature Pulse Rate 89 90 Respiratory Rate 22 13 Blood Pressure 176/113 H Pulse Oximetry 98 98 Oxygen Delivery Method 10/13/21 14:51 10/13/21 14:54 10/13/21 14:54 Temperature Pulse Rate 96 H Respiratory Rate 19 Blood Pressure 178/118 H 172/111 H Pulse Oximetry 96 Oxygen Delivery Method 10/13/21 14:57 10/13/21 14:57 10/13/21 15:00 Temperature Pulse Rate 103 H Respiratory Rate 12 Blood Pressure 159/106 H 166/102 H Pulse Oximetry 97 Oxygen Delivery Method 10/13/21 15:00 10/13/21 15:01 10/13/21 15:01 Temperature Pulse Rate 101 H 103 H Respiratory Rate 18 16 Blood Pressure 165/101 H Pulse Oximetry 96 97 Oxygen Delivery Method Room Air 10/13/21 15:03 10/13/21 15:03 10/13/21 15:06 Temperature Pulse Rate 107 H 107 H Respiratory Rate 21 20 Blood Pressure 160/98 H Pulse Oximetry 95 96 Oxygen Delivery Method 10/13/21 15:06 10/13/21 15:09 10/13/21 15:09 Temperature Pulse Rate 101 H Respiratory Rate 21 Blood Pressure 151/93 H 156/92 H Pulse Oximetry 96 Oxygen Delivery Method 10/13/21 15:12 10/13/21 15:12 10/13/21 15:15 Temperature Pulse Rate 95 H 94 H Respiratory Rate 16 15 Blood Pressure 162/89 H Pulse Oximetry 96 97 Oxygen Delivery Method 10/13/21 15:15 Temperature Pulse Rate Respiratory Rate Blood Pressure 159/99 H Pulse Oximetry Oxygen Delivery Method MDM - Chest Pain <SHALA Gonsalez - Last Filed: 10/13/21 16:07> Differential Diagnosis Differential diagnosis: Likely atypical chest pain Lab Data Result diagrams: 10/13/21 11:44 10/13/21 11:44 Labs: Lab Results 10/13/21 10/13/21 10/13/21 Range/Units 11:44 11:44 11:45 WBC 7.4 (4.5-11.0) X10^3/uL RBC 4.36 L (4.5-5.9) X10^6/uL Hgb 14.8 (13.5-17.5) g/dL Hct 41.3 (41-53) % MCV 94.7 (80-100) fL MCH 33.8 (26-34) PG MCHC 35.8 (30-36) % RDW 12.9 (11.6-14.8) % Plt Count 168 (150-400) X10^3/uL Neut % (Auto) 63.1 (50-75) % Lymph % (Auto) 28.1 (25-40) % [place] % (Auto) 6.7 (3-14) % Eos % (Auto) 1.4 L (2-4) % Baso % (Auto) 0.7 (0-2) % Neut # (Auto) 4700 (1349-4422) /uL Lymph # (Auto) 2100 (4411-2872) /uL [place] # (Auto) 500 (0-900) /uL Eos # (Auto) 100 (0-450) /uL Baso # (Auto) 100 (0-100) /uL Sodium 134 L (137-145) mmol/L Potassium 3.8 (3.4-5.1) mmol/L Chloride 105 (98-107) mmol/L Carbon Dioxide 25 (22-32) mmol/L BUN 15 (9-20) mg/dL Creatinine 0.72 (0.66-1.25) mg/dL Estimated GFR > 60 (>60) mL/min BUN/Creatinine Ratio 20.8 (6-22) Glucose 102 H (70-100) mg/dL Calcium 8.4 (8.4-10.2) mg/dL Magnesium 1.5 L (1.6-2.3) mg/dL Total Bilirubin 1.4 H (0.2-1.3) mg/dL AST 64 H (17-59) IU/L ALT 42 (<50) IU/L Alkaline Phosphatase 134 H (38-126) U/L Total Creatine Kinase 69 (55-170) U/L CK-MB (CK-2) TNP CK-MB (CK-2) Rel Index TNP Troponin I < 0.012 (0.01-0.034) ng/mL NT-Pro-B Natriuret Pep (<125) pg/mL Total Protein 6.7 (6.3-8.2) g/dL Albumin 3.6 (3.5-5.0) g/dL Globulin 3.1 (1.7-4.1) g/dL Albumin/Globulin Ratio 1.2 (1.0-2.8) Lipase 73 (23-300) U/L SARS-CoV-2 (PCR) Negative (Negative) 10/13/21 10/13/21 Range/Units 14:23 14:23 WBC (4.5-11.0) X10^3/uL RBC (4.5-5.9) X10^6/uL Hgb (13.5-17.5) g/dL Hct (41-53) % MCV (80-100) fL MCH (26-34) PG MCHC (30-36) % RDW (11.6-14.8) % Plt Count (150-400) X10^3/uL Neut % (Auto) (50-75) % Lymph % (Auto) (25-40) % [place] % (Auto) (3-14) % Eos % (Auto) (2-4) % Baso % (Auto) (0-2) % Neut # (Auto) (6704-0010) /uL Lymph # (Auto) (4333-2251) /uL [place] # (Auto) (0-900) /uL Eos # (Auto) (0-450) /uL Baso # (Auto) (0-100) /uL Sodium (137-145) mmol/L Potassium (3.4-5.1) mmol/L Chloride (98-107) mmol/L Carbon Dioxide (22-32) mmol/L BUN (9-20) mg/dL Creatinine (0.66-1.25) mg/dL Estimated GFR (>60) mL/min BUN/Creatinine Ratio (6-22) Glucose (70-100) mg/dL Calcium (8.4-10.2) mg/dL Magnesium (1.6-2.3) mg/dL Total Bilirubin (0.2-1.3) mg/dL AST (17-59) IU/L ALT (<50) IU/L Alkaline Phosphatase (38-126) U/L Total Creatine Kinase (55-170) U/L CK-MB (CK-2) CK-MB (CK-2) Rel Index Troponin I < 0.012 (0.01-0.034) ng/mL NT-Pro-B Natriuret Pep 65 (<125) pg/mL Total Protein (6.3-8.2) g/dL Albumin (3.5-5.0) g/dL Globulin (1.7-4.1) g/dL Albumin/Globulin Ratio (1.0-2.8) Lipase (23-300) U/L SARS-CoV-2 (PCR) (Negative) Imaging Data Chest x-ray: Radiologist's Impression: [address] [address] XRay Report Signed Patient: Joselito Waddell MR#: [id number] : 1980 Acct:[id number] Age/Sex: 41 / M Date of Service: 10/13/21 Loc: ED Accession Number: [id number] ?? Procedure: XR chest 1V Ordering Provider: Angelina Hillman D.O. PROCEDURE:? XR CHEST 1V ? INDICATIONS:? chest pain ? TECHNIQUE:? One view of the chest was acquired.? ? COMPARISON:? [facility], CR, XR CHEST 1V, 12/21/2020, 16:57. ? FINDINGS:? ? Surgical changes and devices:? None.? ? Lungs and pleura:? Lungs are clear.? No pleural effusions or pneumothorax.? ? Mediastinum:? Mediastinal contours appear normal.? Heart size is normal.? ? Bones and chest wall:? No suspicious bony lesions.? Overlying soft tissues appear unremarkable.? ? IMPRESSION:? No acute cardiopulmonary disease. ? ? Dictated by: Saad Chiang M.D. on 10/13/2021 at 12:11 ? ? Approved by: Saad Chiang M.D. on 10/13/2021 at 12:12 ? ECG Data Attestation: I personally reviewed and interpreted this ECG as follows: Interpretation: NSR w/ Vent rate of [address] changes MDM Narrative Medical decision making narrative: 41-year-old male who presents emergency department with chest pain and bilateral arm tingling on and off x1 day. Patient has been under excessive stress at work and home. Chest x-ray, EKG and labs were all negative. I highly suspect that patient's symptoms are related to his stress and alcohol intake. Lengthy discussion involving back in off on alcohol intake, attending AA meetings, lifestyle changes, etc. Discussed plan of care and return precautions with patient, who was agreeable to course of action. <Angelina Hillman, DO - Last Filed: 10/17/21 08:29> Lab Data Labs: Lab Results 10/13/21 10/13/21 10/13/21 Range/Units 11:44 11:44 11:45 WBC 7.4 (4.5-11.0) X10^3/uL RBC 4.36 L (4.5-5.9) X10^6/uL Hgb 14.8 (13.5-17.5) g/dL Hct 41.3 (41-53) % MCV 94.7 (80-100) fL MCH 33.8 (26-34) PG MCHC 35.8 (30-36) % RDW 12.9 (11.6-14.8) % Plt Count 168 (150-400) X10^3/uL Neut % (Auto) 63.1 (50-75) % Lymph % (Auto) 28.1 (25-40) % [place] % (Auto) 6.7 (3-14) % Eos % (Auto) 1.4 L (2-4) % Baso % (Auto) 0.7 (0-2) % Neut # (Auto) 4700 (0957-9170) /uL Lymph # (Auto) 2100 (7229-0429) /uL [place] # (Auto) 500 (0-900) /uL Eos # (Auto) 100 (0-450) /uL Baso # (Auto) 100 (0-100) /uL Sodium 134 L (137-145) mmol/L Potassium 3.8 (3.4-5.1) mmol/L Chloride 105 (98-107) mmol/L Carbon Dioxide 25 (22-32) mmol/L BUN 15 (9-20) mg/dL Creatinine 0.72 (0.66-1.25) mg/dL Estimated GFR > 60 (>60) mL/min BUN/Creatinine Ratio 20.8 (6-22) Glucose 102 H (70-100) mg/dL Calcium 8.4 (8.4-10.2) mg/dL Magnesium 1.5 L (1.6-2.3) mg/dL Total Bilirubin 1.4 H (0.2-1.3) mg/dL AST 64 H (17-59) IU/L ALT 42 (<50) IU/L Alkaline Phosphatase 134 H (38-126) U/L Total Creatine Kinase 69 (55-170) U/L CK-MB (CK-2) TNP CK-MB (CK-2) Rel Index TNP Troponin I < 0.012 (0.01-0.034) ng/mL NT-Pro-B Natriuret Pep (<125) pg/mL Total Protein 6.7 (6.3-8.2) g/dL Albumin 3.6 (3.5-5.0) g/dL Globulin 3.1 (1.7-4.1) g/dL Albumin/Globulin Ratio 1.2 (1.0-2.8) Lipase 73 (23-300) U/L SARS-CoV-2 (PCR) Negative (Negative) 10/13/21 10/13/21 Range/Units 14:23 14:23 WBC (4.5-11.0) X10^3/uL RBC (4.5-5.9) X10^6/uL Hgb (13.5-17.5) g/dL Hct (41-53) % MCV (80-100) fL MCH (26-34) PG MCHC (30-36) % RDW (11.6-14.8) % Plt Count (150-400) X10^3/uL Neut % (Auto) (50-75) % Lymph % (Auto) (25-40) % [place] % (Auto) (3-14) % Eos % (Auto) (2-4) % Baso % (Auto) (0-2) % Neut # (Auto) (9303-5189) /uL Lymph # (Auto) (1600-1434) /uL [place] # (Auto) (0-900) /uL Eos # (Auto) (0-450) /uL Baso # (Auto) (0-100) /uL Sodium (137-145) mmol/L Potassium (3.4-5.1) mmol/L Chloride (98-107) mmol/L Carbon Dioxide (22-32) mmol/L BUN (9-20) mg/dL Creatinine (0.66-1.25) mg/dL Estimated GFR (>60) mL/min BUN/Creatinine Ratio (6-22) Glucose (70-100) mg/dL Calcium (8.4-10.2) mg/dL Magnesium (1.6-2.3) mg/dL Total Bilirubin (0.2-1.3) mg/dL AST (17-59) IU/L ALT (<50) IU/L Alkaline Phosphatase (38-126) U/L Total Creatine Kinase (55-170) U/L CK-MB (CK-2) CK-MB (CK-2) Rel Index Troponin I < 0.012 (0.01-0.034) ng/mL NT-Pro-B Natriuret Pep 65 (<125) pg/mL Total Protein (6.3-8.2) g/dL Albumin (3.5-5.0) g/dL Globulin (1.7-4.1) g/dL Albumin/Globulin Ratio (1.0-2.8) Lipase (23-300) U/L SARS-CoV-2 (PCR) (Negative) Discharge Plan Departure Patient Disposition: Home Clinical Impression: Atypical chest pain Instructions: Heartburn -- Overview, DI for Gastroesophageal Reflux Disease (GERD), DI for Chest Pain, GERD Diet Activity Restrictions/Additional Instructions: *You have been diagnosed with atypical chest pain. Your chest x-ray and labs were all negative. After lengthy discussion, I suspect your symptoms are related to your stress from work and home, coupled with alcohol intake. I recommend you attend your new AA meeting and work on tapering down your alcohol intake. Additionally, you may need to make some lifestyle changes at work and home to help reduce your stress. Please follow-up with your family doctor as they may decide to place you on anxiety medications. You may call the [facility] resource line had [phone] to obtain a new family doctor. For any worsening symptoms that include persistent chest pain, arm numbness and tingling, feelings of impending doom, etc. please return to the emergency department immediately. *What to do: *Please continue to take your regular medications as directed. [ ] New medication prescriptions sent to your pharmacy: [ ] [ ] New medication written as a paper prescription [x ] No new medications given *Please follow up with your primary care provider in 2-3 days, call for an appointment. Let them know you were seen in the Emergency Department and that we ask that you be seen in follow up. We will electronically transmit a record of today's note if your PCP is in our system *If you do not have a primary care provider please contact the [facility] at [phone]. They will ask some questions about your medical history and help get you set up with a doctor in the community. ? Return to ER if you should have any new, worsening or concerning symptoms, such as worsening pain, severe headache, confusion, chest pain, difficulty breathing, fever greater than 101 F, shaking chills, persistent vomiting to the point that you cannot drink fluids, or other new or worsening symptoms. Prescriptions: No Action pantoprazole 40 mg Tablet,Delayed Release (Dr/Ec) 40 mg PO BID Qty: 90 1RF atenolol 25 mg tablet 75 mg PO QAM hydrocodone-acetaminophen 5-325 mg tablet 1 tab PO Q4-6H PRN (Reason: pain) Qty: 10 0RF ketorolac 10 mg tablet 10 mg PO Q6H PRN (Reason: pain) Qty: 14 0RF amoxicillin-pot clavulanate [Augmentin XR] 1,000-62.5 mg tablet extended release 12 hr 1 tab PO BID Qty: 10 0RF Referrals: Gin Newsome MD [Primary Care Provider] - Stand Alone Forms: Work Release Note Visit Report Forms: Patient Portal/API <Angelina Hillman DO - Last Filed: 10/17/21 08:29> Cosign ED Attending Cosignature Attestation: I was immediately available in the department for consultation. Documentation has been reviewed.
== END 2021-10-13 16:13 | disposition home or self-care (01) ==
PROVIDERS: Emergency Medicine; Emergency Provider Registered Nurse; PCP Student in an Organized Health Care Education/Training Program
DX: R07.89 Other chest pain (principal); Z20.822 Contact with and (suspected) exposure to COVID-19
CPT/HCPCS: 36415; 71045; 80053; 82550; 83690; 83735; 83880; 84484; 85025; 87635; 93005; 93010; 99284; C9803

== ENCOUNTER 2022-11-09 14:58 | Emergency (ER) | payer OTHER, SELFPAY ==
[2020-04-29 20:40] VITALS: BMI 25.4
[2022-11-09 15:11] VITALS: BP 133/76; PULSE 110; RESP 20; TEMP 36.8; O2SAT 97; BMI 32.8
--- NOTE | 2022-11-09 16:27 | ED.WOUNDLAC ---
HPI - Wound/Laceration <Stephanie Guillaume PA-C - Last Filed: 11/09/22 17:30> General Chief Complaint: Wound/Laceration Stated Complaint: Wound on bottom of foot Time Seen by Provider: 11/09/22 15:46 Source: patient Mode of arrival: Ambulatory History of Present Illness HPI narrative: 42-year-old male presents to ED with a wound on his right foot. Wound is on the bottom of the foot. States he got new shoes and wear them for several days with no socks inserted blisters. Then yesterday he was running on hot concrete with his kids with no shoes or socks on. States that his foot felt more sore today. He has not tried any medications or treatments so far. He denies any history of diabetes or elevated blood sugars. He has a history of high blood pressure. He denies any fevers or chills. States he is able to ambulate but foot is tender where the wound is located. Related Data Home Medications Medication Instructions Recorded Confirmed amlodipine 10 mg tablet 10 mg PO DAILY 11/09/22 11/09/22 escitalopram oxalate 10 mg tablet 10 mg PO DAILY 11/09/22 11/09/22 lisinopril 40 mg tablet 40 mg PO DAILY 11/09/22 11/09/22 naltrexone 50 mg tablet 50 mg PO DAILY 11/09/22 11/09/22 Previous Rx's Medication Instructions Recorded cephalexin 500 mg capsule 500 mg PO BID 5 days #10 caps 11/09/22 mupirocin 2 % topical ointment 1 applic topical TID #22 grams 11/09/22 Allergies Allergy/AdvReac Type Severity Reaction Status Date / Time No Known Drug Allergies Allergy Verified 11/09/22 15:15 Review of Systems <Stephanie Guillaume PA-C - Last Filed: 11/09/22 17:30> Review of Systems ROS Unobtainable: All systems reviewed & are unremarkable except as noted in HPI and below Patient History <Stephanie Guillaume PA-C - Last Filed: 11/09/22 17:30> Medical History Alcohol use disorder Anxiety Asthma Chronic GERD Hypertension Family History Mother Hypertension Father Hypertension Social History marital status: unmarried,living together household members: significant other and children occupational status: employed Smoking Status: Former smoker alcohol intake: current substance use type: does not use Smoking Status: Former smoker alcohol intake frequency: 3 or more drinks per day Alcohol type: beer and hard liquor Substance Use Type: marijuana Exam <Stephanie Guillaume PA-C - Last Filed: 11/09/22 17:30> Narrative Exam Narrative: GENERAL: [] year old patient appears stated age. Well-developed patient, in mild distress. HEAD: Atraumatic. Normocephalic. EYES: Pupils equal round and reactive. Extraocular motions intact. No scleral icterus. No injection or drainage. ENT: Nose without bleeding, purulent drainage. Airway patent. NECK: Trachea midline. Non tender RESPIRATORY: Respiratory rate and effort normal GASTROINTESTINAL: Abdomen soft, non-tender, nondistended. EXTREMITIES: No edema or joint tenderness. NEURO: AOx3. SKIN: Bottom of right foot with 2 cm circular blistered area with a 0.5 cm superficial abrasion located centrally. There is no abscess noted, no purulent drainage. Mildly tender. No surrounding erythema, edema. Remainder of foot has no warmth, erythema, edema. Full range of motion of foot noted. Initial Vital Signs Initial Vital Signs: Vital Signs Temperature 98.2 F 11/09/22 15:11 Pulse Rate 110 H 11/09/22 15:11 Respiratory Rate 20 11/09/22 15:11 Blood Pressure 133/76 11/09/22 15:11 Pulse Oximetry 97 11/09/22 15:11 Oxygen Delivery Method Room Air 11/09/22 15:11 <Angelina Rg MD - Last Filed: 11/09/22 19:28> Initial Vital Signs Initial Vital Signs: Vital Signs Temperature 98.2 F 11/09/22 15:11 Pulse Rate 110 H 11/09/22 15:11 Respiratory Rate 20 11/09/22 15:11 Blood Pressure 133/76 11/09/22 15:11 Pulse Oximetry 97 11/09/22 15:11 Oxygen Delivery Method Room Air 11/09/22 15:11 Course <Stephanie Guillaume PA-C - Last Filed: 11/09/22 17:30> Vital Signs Vital signs: Vital Signs - 8 hr 11/09/22 15:11 11/09/22 17:02 Temperature 98.2 F 99.8 F H Pulse Rate 110 H 96 H Respiratory Rate 20 14 Blood Pressure 133/76 118/77 Pulse Oximetry 97 97 Oxygen Delivery Method Room Air Room Air <Angelina Rg MD - Last Filed: 11/09/22 19:28> Vital Signs Vital signs: Vital Signs - 8 hr 11/09/22 15:11 11/09/22 17:02 Temperature 98.2 F 99.8 F H Pulse Rate 110 H 96 H Respiratory Rate 20 14 Blood Pressure 133/76 118/77 Pulse Oximetry 97 97 Oxygen Delivery Method Room Air Room Air MDM - Wound/Laceration <Stephanie Guillaume PA-C - Last Filed: 11/09/22 17:30> MDM Narrative Medical decision making narrative: 42-year-old male here with wound on the bottom of his right foot. No history of diabetes. Was wearing new shoes without socks for several days and then ran barefoot on hard concrete. States he had blisters which then popped on the right foot in turn into a wound. He denies any fevers or chills. Differential includes abrasion, blister, cellulitis, superficial wound. There is no evidence of cellulitis or surrounding infection. This appears to be a mild superficial wound and can be treated with mupirocin ointment and soaking in Epsom salt. Discussed signs and symptoms of cellulitis and/or worsening infections and gave ED precautions. Dressed wound with nonadherent pad and [place] instructed patient to do the same at home if he will be wearing shoes and walking. Discharge Plan Departure Patient Disposition: Home Clinical Impression: Superficial wound Instructions: Skin Wound Activity Restrictions/Additional Instructions: Thank you for coming in today. You have been diagnosed with a superficial wound of the right foot. We discussed using antibiotic ointment and changing dressing and avoiding long periods of time on your feet over the next few days. Please soak in Epsom salts and warm water 3 times a day, dry completely, then apply antibiotic ointment and dressed the wound. You may leave wound open to the air whenever you are relaxing at home or throughout the night. A backup antibiotic prescription was given to you should you experience increased redness or swelling of the foot over the next few days. Please follow-up with PCP if you are not improving. ED precautions discussed. Prescriptions: New mupirocin 2 % ointment 1 applic topical TID Qty: 22 0RF cephalexin 500 mg capsule 500 mg PO BID 5 Days Qty: 10 0RF No Action naltrexone 50 mg tablet 50 mg PO DAILY amlodipine 10 mg tablet 10 mg PO DAILY lisinopril 40 mg tablet 40 mg PO DAILY escitalopram oxalate 10 mg tablet 10 mg PO DAILY Referrals: Gin Newsome MD [Primary Care Provider] - Stand Alone Forms: Patient Portal/API, Work Release Note <Angelina Rg MD - Last Filed: 11/09/22 19:28> Cosign ED Attending Cosignature Attestation: I do not see this patient. I was available at all times for consultation.
[2022-11-09 17:02] VITALS: BP 118/77; PULSE 96; RESP 14; TEMP 37.7; O2SAT 97
== END 2022-11-09 17:04 | disposition home or self-care (01) ==
PROVIDERS: Emergency Provider Physician Assistant; PCP Student in an Organized Health Care Education/Training Program
DX: S90.921A Unspecified superficial injury of right foot, initial encounter (principal)
CPT/HCPCS: 99281

== ENCOUNTER 2022-12-18 15:54 | Emergency (ER) | payer OTHER, SELFPAY ==
[2020-04-29 20:40] VITALS: BMI 25.4
[2022-12-18] VITALS (8 sets, daily range): BP systolic 141–199; BP diastolic 79–131; PULSE 87–98; RESP 20–22; TEMP 36.5–36.6; O2SAT 91–98; BMI 32.6
--- NOTE | 2022-12-18 16:10 | DI.RAD.S_ITS ---
PROCEDURE: XR CHEST 1V INDICATIONS: chest pain TECHNIQUE: One view of the chest was acquired. COMPARISON: [facility], CR, XR CHEST 1V, 10/13/2021, 11:52. [facility], CR, XR CHEST 1V, 12/21/2020, 16:57. FINDINGS: Surgical changes and devices: None. Lungs and pleura: Lungs are clear. No pleural effusions or pneumothorax. Mediastinum: Mediastinal contours appear normal. Heart size is normal. Bones and chest wall: No suspicious bony lesions. Overlying soft tissues appear unremarkable. IMPRESSION: Portable chest within normal limits for age. Dictated by: Vel Estrada M.D. on 12/18/2022 at 16:56 Approved by: Vel Estrada M.D. on 12/18/2022 at 16:56
[2022-12-18 16:38] LABS: INR 1.2 (0.9-1.3); Prothrombin Time 13.2 SECONDS (10.1-12.7)
[2022-12-18 16:41] LABS: PTT Partial Thromboplastin Tim 29 SECONDS (26-36)
[2022-12-18 16:46] LABS: Alanine Aminotransferase 75 IU/L (<50); Albumin Globulin Ratio 1.1 (1.0-2.8); Alkaline Phosphatase 129 U/L (38-126); Aspartate Aminotransferase 78 IU/L (17-59); BUN Creatinine Ratio 21.1 (6-22); Bilirubin Total 1.2 mg/dL (0.2-1.3); Blood Urea Nitrogen 15 mg/dL (9-20); Calcium 8.8 mg/dL (8.4-10.2); Carbon Dioxide 22 mmol/L (22-32); Chloride 101 mmol/L (98-107); Creatine Kinase 127 U/L (55-170); Estimated Glomerular Filt Rate > 60 mL/min (>60); Globulin 3.5 g/dL (1.7-4.1); Glucose 125 mg/dL (70-100); Lipase 80 U/L (23-300); Magnesium 1.8 mg/dL (1.6-2.3); Sodium 136 mmol/L (137-145); Total Protein 7.5 g/dL (6.3-8.2)
[2022-12-18 16:47] LABS: Lactate (Lactic Acid) 1.9 mmol/L (0.7-2.1)
[2022-12-18 16:49] LABS: HEMOLYSIS 106 (0-50)
[2022-12-18 16:50] LABS: Potassium 4.1 mmol/L (3.4-5.1)
[2022-12-18] MEDS: SODIUM CHLORIDE 0.9% 1,000 ML 1000 ML IV (16:55)
[2022-12-18 16:57] LABS: Troponin I 0.023 ng/mL (0.01-0.034)
[2022-12-18 17:02] LABS: Procalcitonin 0.27 ng/mL (<0.5)
[2022-12-18 17:28] LABS: Add Manual Diff / Slide Review NO; Basophils Absolute Auto 0 /uL (0-100); Basophils Percent Auto 0.6 % (0-2); Eosinophils Absolute Auto 0 /uL (0-450); Eosinophils Percent Auto 0.5 % (2-4); Hematocrit 43.9 % (41-53); Hemoglobin 15.2 g/dL (13.5-17.5); Lymphocytes Absolute Auto 1900 /uL (1100-4500); Lymphocytes Percent Auto 22.5 % (25-40); Mean Corpuscular HGB Conc 34.6 % (30-36); Mean Corpuscular Hemoglobin 33.2 PG (26-34); Monocytes Absolute Auto 400 /uL (0-900); Monocytes Percent Auto 4.7 % (3-14); Neutrophils Absolute Auto 6100 /uL (1500-7000); Neutrophils Percent Auto 71.7 % (50-75); Red Blood Cell Count 4.58 X10^6/uL (4.5-5.9); Red Cell Distribution Width 13.9 % (11.6-14.8); White Blood Cell Count 8.6 X10^3/uL (4.5-11.0)
[2022-12-18 17:29] LABS: Platelet Count 243 X10^3/uL (150-400)
[2022-12-18 17:54] LABS: UR Morphine/Opiate cutoff 300 Negative (Negative); Ur Creatinine Normal (Normal); Ur Specific Gravity Normal (Normal); Urine Amphetamines Negative (Negative); Urine Barbiturates Negative (Negative); Urine Benzodiazepines Negative (Negative); Urine Cocaine Positive (Negative); Urine MDMA Negative (Negative); Urine Methadone Negative (Negative); Urine Methamphetamines Negative (Negative); Urine Oxycodone Positive (Negative); Urine Phencyclidine Negative (Negative); Urine Tetrahydrocannabinol Negative (Negative); Urine Tricyclic Antidepressant Negative (Negative); Urine pH Normal (Normal)
--- NOTE | 2022-12-18 18:02 | DI.CT.S_ITS ---
PROCEDURE: CT ABDOMEN PELVIS W CON INDICATIONS: severe abdominal pain TECHNIQUE: After the administration of IV contrast, axial sections were acquired from the lung bases to the pubic symphysis. Coronal and sagittal reformats were performed. For radiation dose reduction, the following was used: automated exposure control, adjustment of mA and/or kV according to patient size. COMPARISON: [facility], CT, CT ABDOMEN PELVIS W CON, 04/29/2020, 18:27. [facility], CR, XR CHEST 1V, 12/18/2022, 16:16. [facility], CT, CT ABDOMEN PELVIS W CON, 10/29/2018, 16:32. FINDINGS: Image quality: Excellent. Lung bases: Unremarkable. Heart: No significant findings. ABDOMEN: Liver: An enlarged, fatty infiltrated liver can be seen. No focally suspicious liver lesion is seen on this single phase study. Gallbladder: Unremarkable. Biliary ducts: Unremarkable. Pancreas: Unremarkable. Spleen: Unremarkable. Adrenal Glands: Unremarkable. Kidneys and Ureters: Unremarkable. Stomach and Bowel: Stomach, small bowel loops, and colon are unremarkable. A normal appendix is noted. Peritoneum: No abnormal intraperitoneal fluid. No free air. Ventral Wall: No hernia. Abdominal Nodes: No retroperitoneal or mesenteric adenopathy by size criteria. Vessels: Aorta and inferior vena cava are normal in size. PELVIS: Pelvic Organs: Unremarkable. Bladder: Unremarkable. Pelvic Nodes: No enlarged lymph nodes. Miscellaneous: Bilateral fat containing inguinal hernias are seen, right larger than left. Bones: Focal L5-S1 degenerative change is seen. IMPRESSION: A cause of acute severe abdominal pain is not seen. Normal appendix. No dilated loops of small bowel can be seen. Additional findings: Enlarged, fatty liver Focal L5-S1 degenerative change Bilateral fat containing inguinal hernias Dictated by: Zenon Berg M.D. on 12/18/2022 at 17:41 Approved by: Zenon Berg M.D. on 12/18/2022 at 17:43
--- NOTE | 2022-12-18 18:10 | ED.CHESTPAIN ---
HPI - Chest Pain <Chuy Herrera DO - Last Filed: 12/19/22 09:26> General Chief Complaint: Chest Pain Stated Complaint: Chest pain Time Seen by Provider: 12/18/22 16:21 Source: patient Mode of arrival: Ambulatory Limitations: no limitations History of Present Illness HPI narrative: 42-year-old male former smoker with heavy alcohol history and history of hypertension, hepatitis presents with about 24 hours of severe central and midepigastric pain that is made worse when he eats or drinks, particularly drinks alcohol. He does have a history of the same that was thought to be related to alcohol abuse disorder and sounds like either pancreatitis or gastritis, the patient is unsure. He denies any fever or chills nor nausea or vomiting. He denies any change in his bowel habits or urinary complaints. Related Data Home Medications Medication Instructions Recorded Confirmed amlodipine 10 mg tablet 10 mg PO DAILY 11/09/22 11/09/22 escitalopram oxalate 10 mg tablet 10 mg PO DAILY 11/09/22 11/09/22 lisinopril 40 mg tablet 40 mg PO DAILY 11/09/22 11/09/22 naltrexone 50 mg tablet 50 mg PO DAILY 11/09/22 11/09/22 Previous Rx's Medication Instructions Recorded mupirocin 2 % topical ointment 1 applic topical TID #22 grams 11/09/22 sucralfate 100 mg/mL oral 10 ml PO QACHS #414 mL 12/18/22 suspension (Carafate) Allergies Allergy/AdvReac Type Severity Reaction Status Date / Time No Known Drug Allergies Allergy Verified 12/18/22 16:11 Review of Systems <DO Kim Cross Last Filed: 12/19/22 09:26> Review of Systems Narrative: GENERAL: See HPI HEENT: Denies sinus pain, ear pain, sore throat, difficulty swallowing, dizziness. RESPIRATORY: Denies dyspnea, cough, wheezing, hemoptysis, sputum. CARDIOVASCULAR: Denies chest pain, palpitations, orthopnea, edema, GASTROINTESTINAL: See HPI : Denies dysuria, frequency, incontinence, hematuria, urinary retention. MUSCULOSKELETAL: denies weakness, joint pain, or bony pain SKIN: Denies rash, skin lesions, or other NEUROLOGIC: Denies weakness, headache, numbness, change in speech, confusion, seizures, incoordination. PSYCHIATRIC: No concerning psychosocial issues. 12 point review of systems is negative except for those stated above Patient History <Chuy Herrera DO - Last Filed: 12/19/22 09:26> Medical History Chronic GERD Asthma Alcohol use disorder Anxiety Hypertension Family History Mother Hypertension Father Hypertension Social History marital status: unmarried,living together household members: significant other and children occupational status: employed Smoking Status: Former smoker alcohol intake: current substance use type: does not use Smoking Status: Former smoker alcohol intake frequency: 3 or more drinks per day Alcohol type: beer and hard liquor Substance Use Type: marijuana Exam <Chuy Herrera DO - Last Filed: 12/19/22 09:26> Narrative Exam Narrative: GENERAL: [42] year old patient appears stated age. Well-developed patient, in mild distress. Obviously uncomfortable HEAD: Atraumatic. Normocephalic. EYES: Pupils equal round and reactive. Extraocular motions intact. No scleral icterus. No injection or drainage. ENT: Nose without bleeding, purulent drainage. Throat without erythema, tonsillar hypertrophy or exudate. Airway patent. NECK: Trachea midline. Non tender CARDIOVASCULAR: Regular rate and rhythm without murmurs, gallops, or rubs. RESPIRATORY: Clear to auscultation. Breath sounds equal bilaterally. No wheezes, rales, or rhonchi. GASTROINTESTINAL: Abdomen soft, epigastric pain, nondistended. EXTREMITIES: No edema or joint tenderness. BACK: Nontender without deformity or crepitance. No flank tenderness. NEURO: AOx3. SKIN: No rash or erythema of visible areas Initial Vital Signs Initial Vital Signs: Vital Signs Temperature 97.7 F 12/18/22 16:03 Pulse Rate 96 H 12/18/22 16:03 Respiratory Rate 22 12/18/22 16:03 Blood Pressure 153/90 H 12/18/22 16:03 Pulse Oximetry 98 12/18/22 16:03 Oxygen Delivery Method Room Air 12/18/22 16:03 <Jignesh Mattson DO - Last Filed: 12/18/22 22:30> Initial Vital Signs Initial Vital Signs: Vital Signs Temperature 97.7 F 12/18/22 16:03 Pulse Rate 96 H 12/18/22 16:03 Respiratory Rate 22 12/18/22 16:03 Blood Pressure 153/90 H 12/18/22 16:03 Pulse Oximetry 98 12/18/22 16:03 Oxygen Delivery Method Room Air 12/18/22 16:03 Course <Chuy Herrera, DO - Last Filed: 12/19/22 09:26> Orders Ordered: Discontinued Medications Aspirin (Aspirin 81 Mg Chew Tab) 324 mg PO NOW ONE Stop: 12/18/22 16:10 Last Admin: 12/18/22 16:20 Dose: Not Given Documented By: ROSELINE Hydromorphone HCl (Hydromorphone 1 Mg Inj) 1 mg IV NOW ONE Stop: 12/18/22 18:03 Last Admin: 12/18/22 18:25 Dose: 1 mg Documented By: GUIDO Sodium Chloride (Normal Saline 0.9%) 1,000 mls @ 1,000 mls/hr IV BOLUS ONE Stop: 12/18/22 17:25 Last Infusion: 12/18/22 18:16 Dose: Infused Documented By: Admin: 12/18/22 16:55 Dose: 1,000 mls/hr Documented By: GUIDO Ondansetron HCl (Ondansetron 4 Mg/2 Ml Inj) 4 mg IV NOW PRN PRN Reason: Nausea And Vomiting Last Admin: 12/18/22 18:25 Dose: 4 mg Documented By: GUIDO Ondansetron HCl (Ondansetron 4 Mg Odt) 4 mg SL NOW PRN PRN Reason: Nausea And Vomiting Vital Signs Vital signs: Vital Signs - 8 hr 12/18/22 16:03 12/18/22 17:25 12/18/22 17:56 Temperature 97.7 F 97.8 F Pulse Rate 96 H 98 H 87 Respiratory Rate 22 22 22 Blood Pressure 153/90 H 146/86 H 171/112 H Pulse Oximetry 98 94 94 Oxygen Delivery Method Room Air Room Air Room Air 12/18/22 18:52 12/18/22 19:17 12/18/22 19:18 Temperature Pulse Rate 90 97 H Respiratory Rate 22 20 Blood Pressure 199/131 H 165/103 H Pulse Oximetry 95 96 Oxygen Delivery Method Room Air 12/18/22 19:18 12/18/22 19:30 12/18/22 19:30 Temperature Pulse Rate 90 93 H Respiratory Rate 20 22 Blood Pressure 141/79 H Pulse Oximetry 95 92 Oxygen Delivery Method 12/18/22 20:00 12/18/22 20:00 Temperature Pulse Rate 96 H Respiratory Rate 20 Blood Pressure 143/81 H Pulse Oximetry 91 Oxygen Delivery Method Room Air <Jignesh Mattson DO - Last Filed: 12/18/22 22:30> Orders Ordered: Discontinued Medications Aspirin (Aspirin 81 Mg Chew Tab) 324 mg PO NOW ONE Stop: 12/18/22 16:10 Last Admin: 12/18/22 16:20 Dose: Not Given Documented By: ROSELINE Hydromorphone HCl (Hydromorphone 1 Mg Inj) 1 mg IV NOW ONE Stop: 12/18/22 18:03 Last Admin: 12/18/22 18:25 Dose: 1 mg Documented By: GUIDO Sodium Chloride (Normal Saline 0.9%) 1,000 mls @ 1,000 mls/hr IV BOLUS ONE Stop: 12/18/22 17:25 Last Infusion: 12/18/22 18:16 Dose: Infused Documented By: Admin: 12/18/22 16:55 Dose: 1,000 mls/hr Documented By: GUIDO Ondansetron HCl (Ondansetron 4 Mg/2 Ml Inj) 4 mg IV NOW PRN PRN Reason: Nausea And Vomiting Last Admin: 12/18/22 18:25 Dose: 4 mg Documented By: GUIDO Ondansetron HCl (Ondansetron 4 Mg Odt) 4 mg SL NOW PRN PRN Reason: Nausea And Vomiting Vital Signs Vital signs: Vital Signs - 8 hr 12/18/22 16:03 12/18/22 17:25 12/18/22 17:56 Temperature 97.7 F 97.8 F Pulse Rate 96 H 98 H 87 Respiratory Rate 22 22 22 Blood Pressure 153/90 H 146/86 H 171/112 H Pulse Oximetry 98 94 94 Oxygen Delivery Method Room Air Room Air Room Air 12/18/22 18:52 12/18/22 19:17 12/18/22 19:18 Temperature Pulse Rate 90 97 H Respiratory Rate 22 20 Blood Pressure 199/131 H 165/103 H Pulse Oximetry 95 96 Oxygen Delivery Method Room Air 12/18/22 19:18 12/18/22 19:30 12/18/22 19:30 Temperature Pulse Rate 90 93 H Respiratory Rate 20 22 Blood Pressure 141/79 H Pulse Oximetry 95 92 Oxygen Delivery Method 12/18/22 20:00 12/18/22 20:00 Temperature Pulse Rate 96 H Respiratory Rate 20 Blood Pressure 143/81 H Pulse Oximetry 91 Oxygen Delivery Method Room Air MDM - Chest Pain <Chuy Herrera, DO - Last Filed: 12/19/22 09:26> Lab Data 12/18/22 16:20 12/18/22 16:20 Labs: Lab Results 12/18/22 12/18/22 12/18/22 Range/Units 16:20 17:30 18:30 WBC 8.6 (4.5-11.0) X10^3/uL RBC 4.58 (4.5-5.9) X10^6/uL Hgb 15.2 (13.5-17.5) g/dL Hct 43.9 (41-53) % MCV 96.0 (80-100) fL MCH 33.2 (26-34) PG MCHC 34.6 (30-36) % RDW 13.9 (11.6-14.8) % Plt Count 243 (150-400) X10^3/uL Neut % (Auto) 71.7 (50-75) % Lymph % (Auto) 22.5 L (25-40) % Tyler % (Auto) 4.7 (3-14) % Eos % (Auto) 0.5 L (2-4) % Baso % (Auto) 0.6 (0-2) % Neut # (Auto) 6100 (3581-8212) /uL Lymph # (Auto) 1900 (1358-5100) /uL Tyler # (Auto) 400 (0-900) /uL Eos # (Auto) 0 (0-450) /uL Baso # (Auto) 0 (0-100) /uL PT 13.2 H (10.1-12.7) SECONDS INR 1.2 (0.9-1.3) APTT 29 (26-36) SECONDS Sodium 136 L (137-145) mmol/L Potassium 4.1 (3.4-5.1) mmol/L Chloride 101 (98-107) mmol/L Carbon Dioxide 22 (22-32) mmol/L BUN 15 (9-20) mg/dL Creatinine 0.71 (0.66-1.25) mg/dL Estimated GFR > 60 (>60) mL/min BUN/Creatinine Ratio 21.1 (6-22) Glucose 125 H (70-100) mg/dL Lactate 1.9 (0.7-2.1) mmol/L Calcium 8.8 (8.4-10.2) mg/dL Magnesium 1.8 (1.6-2.3) mg/dL Total Bilirubin 1.2 (0.2-1.3) mg/dL AST 78 H (17-59) IU/L ALT 75 H (<50) IU/L Alkaline Phosphatase 129 H (38-126) U/L Total Creatine Kinase 127 (55-170) U/L Troponin I 0.023 0.023 (0.01-0.034) ng/mL Total Protein 7.5 (6.3-8.2) g/dL Albumin 4.0 (3.5-5.0) g/dL Globulin 3.5 (1.7-4.1) g/dL Albumin/Globulin Ratio 1.1 (1.0-2.8) Lipase 80 (23-300) U/L Procalcitonin 0.27 (<0.5) ng/mL U Opiates 300ng/mL cut Negative (Negative) Ur Oxycodone Screen Positive H (Negative) Urine Methadone Screen Negative (Negative) Ur Barbiturates Screen Negative (Negative) U Tricyclic Antidepress Negative (Negative) Ur Phencyclidine Scrn Negative (Negative) Ur Amphetamines Screen Negative (Negative) U Methamphetamines Scrn Negative (Negative) Ur MDMA Scrn (Ecstasy) Negative (Negative) U Benzodiazepines Scrn Negative (Negative) Urine Cocaine Screen Positive H (Negative) U Marijuana (THC) Screen Negative (Negative) Ethyl Alcohol 132 H ( - 10) mg/dL Urine Dip Bedside Urine Glucose Negative Bedside Urine Bilirubin - Negative Bedside Urine Ketone - Negative Urine Specific [place] 1.025 Bedside Urine Occult Blood - Negative Bedside Urine pH 6.0 Bedside Urine Protein - Negative Bedside Urine Urobilinogen 0.2 Bedside Urine Nitrite - Negative Bedside Urine Leukocytes - Negative Esterase <Jignesh Mattson DO - Last Filed: 12/18/22 22:30> Lab Data Labs: Lab Results 12/18/22 12/18/22 12/18/22 Range/Units 16:20 17:30 18:30 WBC 8.6 (4.5-11.0) X10^3/uL RBC 4.58 (4.5-5.9) X10^6/uL Hgb 15.2 (13.5-17.5) g/dL Hct 43.9 (41-53) % MCV 96.0 (80-100) fL MCH 33.2 (26-34) PG MCHC 34.6 (30-36) % RDW 13.9 (11.6-14.8) % Plt Count 243 (150-400) X10^3/uL Neut % (Auto) 71.7 (50-75) % Lymph % (Auto) 22.5 L (25-40) % Tyler % (Auto) 4.7 (3-14) % Eos % (Auto) 0.5 L (2-4) % Baso % (Auto) 0.6 (0-2) % Neut # (Auto) 6100 (9204-7424) /uL Lymph # (Auto) 1900 (6516-2796) /uL Tyler # (Auto) 400 (0-900) /uL Eos # (Auto) 0 (0-450) /uL Baso # (Auto) 0 (0-100) /uL PT 13.2 H (10.1-12.7) SECONDS INR 1.2 (0.9-1.3) APTT 29 (26-36) SECONDS Sodium 136 L (137-145) mmol/L Potassium 4.1 (3.4-5.1) mmol/L Chloride 101 (98-107) mmol/L Carbon Dioxide 22 (22-32) mmol/L BUN 15 (9-20) mg/dL Creatinine 0.71 (0.66-1.25) mg/dL Estimated GFR > 60 (>60) mL/min BUN/Creatinine Ratio 21.1 (6-22) Glucose 125 H (70-100) mg/dL Lactate 1.9 (0.7-2.1) mmol/L Calcium 8.8 (8.4-10.2) mg/dL Magnesium 1.8 (1.6-2.3) mg/dL Total Bilirubin 1.2 (0.2-1.3) mg/dL AST 78 H (17-59) IU/L ALT 75 H (<50) IU/L Alkaline Phosphatase 129 H (38-126) U/L Total Creatine Kinase 127 (55-170) U/L Troponin I 0.023 0.023 (0.01-0.034) ng/mL Total Protein 7.5 (6.3-8.2) g/dL Albumin 4.0 (3.5-5.0) g/dL Globulin 3.5 (1.7-4.1) g/dL Albumin/Globulin Ratio 1.1 (1.0-2.8) Lipase 80 (23-300) U/L Procalcitonin 0.27 (<0.5) ng/mL U Opiates 300ng/mL cut Negative (Negative) Ur Oxycodone Screen Positive H (Negative) Urine Methadone Screen Negative (Negative) Ur Barbiturates Screen Negative (Negative) U Tricyclic Antidepress Negative (Negative) Ur Phencyclidine Scrn Negative (Negative) Ur Amphetamines Screen Negative (Negative) U Methamphetamines Scrn Negative (Negative) Ur MDMA Scrn (Ecstasy) Negative (Negative) U Benzodiazepines Scrn Negative (Negative) Urine Cocaine Screen Positive H (Negative) U Marijuana (THC) Screen Negative (Negative) Ethyl Alcohol 132 H ( - 10) mg/dL Urine Dip Bedside Urine Glucose Negative Bedside Urine Bilirubin - Negative Bedside Urine Ketone - Negative Urine Specific [place] 1.025 Bedside Urine Occult Blood - Negative Bedside Urine pH 6.0 Bedside Urine Protein - Negative Bedside Urine Urobilinogen 0.2 Bedside Urine Nitrite - Negative Bedside Urine Leukocytes - Negative Esterase Imaging Data CT scan - abdomen/pelvis: Radiologist's Impression: PROCEDURE: CT ABDOMEN PELVIS W CON INDICATIONS: severe abdominal pain TECHNIQUE: After the administration of IV contrast, axial sections were acquired from the lung bases to the pubic symphysis. Coronal and sagittal reformats were performed. For radiation dose reduction, the following was used: automated exposure control, adjustment of mA and/or kV according to patient size. COMPARISON: [facility], CT, CT ABDOMEN PELVIS W CON, 04/29/2020, 18:27. [facility], CR, XR CHEST 1V, 12/18/2022, 16:16. [facility], CT, CT ABDOMEN PELVIS W CON, 10/29/2018, 16:32. FINDINGS: Image quality: Excellent. Lung bases: Unremarkable. Heart: No significant findings. ABDOMEN: Liver: An enlarged, fatty infiltrated liver can be seen. No focally suspicious liver lesion is seen on this single phase study. Gallbladder: Unremarkable. Biliary ducts: Unremarkable. Pancreas: Unremarkable. Spleen: Unremarkable. Adrenal Glands: Unremarkable. Kidneys and Ureters: Unremarkable. Stomach and Bowel: Stomach, small bowel loops, and colon are unremarkable. A normal appendix is noted. Peritoneum: No abnormal intraperitoneal fluid. No free air. Ventral Wall: No hernia. Abdominal Nodes: No retroperitoneal or mesenteric adenopathy by size criteria. Vessels: Aorta and inferior vena cava are normal in size. PELVIS: Pelvic Organs: Unremarkable. Bladder: Unremarkable. Pelvic Nodes: No enlarged lymph nodes. Miscellaneous: Bilateral fat containing inguinal hernias are seen, right larger than left. Bones: Focal L5-S1 degenerative change is seen. IMPRESSION: A cause of acute severe abdominal pain is not seen. Normal appendix. No dilated loops of small bowel can be seen. Additional findings: Enlarged, fatty liver Focal L5-S1 degenerative change Bilateral fat containing inguinal hernias Chest x-ray: Radiologist's Impression: PROCEDURE: XR CHEST 1V INDICATIONS: chest pain TECHNIQUE: One view of the chest was acquired. COMPARISON: [facility], CR, XR CHEST 1V, 10/13/2021, 11:52. [facility], CR, XR CHEST 1V, 12/21/2020, 16:57. FINDINGS: Surgical changes and devices: None. Lungs and pleura: Lungs are clear. No pleural effusions or pneumothorax. Mediastinum: Mediastinal contours appear normal. Heart size is normal. Bones and chest wall: No suspicious bony lesions. Overlying soft tissues appear unremarkable. IMPRESSION: Portable chest within normal limits for age. ECG Data Interpretation: Repeat EKG Sinus rhythm Ventricular rate 89 Normal axis Unchanged from prior EKG MDM Narrative Medical decision making narrative: Dr mattson: Received turned over. Review patient's history and physical and labs up to this point. Patient has had 2- troponins. Labs are unremarkable. Lipase is unremarkable. LFTs unremarkable. CT scan shows no acute pathology. Given his history and his alcohol use I would suspect that he most likely has a gastric ulcer. His H&H is unremarkable. I did discuss this with him. I did inform him that this is a clinical diagnosis and we can not 100% confirm this without an upper endoscopy which he may need in the future. Plan will be to start him on Carafate. We did discuss that his alcohol use may be aggravating the issues as well. He was given return precautions and follow-up instructions. He expressed understanding and agreement with plan. Discharge Plan Departure Patient Disposition: Home Clinical Impression: Abdominal pain Instructions: DI for Abdominal Pain-Adult Activity Restrictions/Additional Instructions: I do recommend that you cut back on the amount of alcohol that you are drinking as this maybe the most helpful thing to help with your stomach discomfort. Also use the Carafate as directed. Contact your primary doctor for a follow-up. Return to the emergency department for new symptoms. Prescriptions: New sucralfate [Carafate] 100 mg/mL suspension 10 ml PO QACHS Qty: 414 2RF No Action naltrexone 50 mg tablet 50 mg PO DAILY amlodipine 10 mg tablet 10 mg PO DAILY lisinopril 40 mg tablet 40 mg PO DAILY escitalopram oxalate 10 mg tablet 10 mg PO DAILY mupirocin 2 % ointment 1 applic topical TID Qty: 22 0RF Referrals: Ronni Allen MD [Primary Care Provider] - Stand Alone Forms: Patient Portal/API
--- NOTE | 2022-12-18 18:15 | PC.NURSE ---
Patient left department with site supervising technical operator for imaging.
[2022-12-18 18:20] LABS: Ethanol (ETOH) 132 mg/dL
[2022-12-18] MEDS: HYDROMORPHONE 1 MG INJ IV (18:25)
[2022-12-18] MEDS: ONDANSETRON 4 MG/2 ML INJ IV (18:25)
[2022-12-18 19:27] LABS: Troponin I 0.023 ng/mL (0.01-0.034)
== END 2022-12-18 20:14 | disposition home or self-care (01) ==
PROVIDERS: Emergency Medicine; Emergency Provider Emergency Medicine; PCP Family Medicine
DX: R10.9 Unspecified abdominal pain (principal)
CPT/HCPCS: 36415; 71045; 74177; 80053; 80305; 80320; 81003; 82550; 83605; 83690; 83735; 84145; 84484; 85025; 85610; 85730; 87040; 93005; 96361; 96374; 96375; 99284; 99285; J1170; J2405; Q9967

== ENCOUNTER → 2023-06-15 14:42 | Outpatient (CLI) | payer OTHER, SELFPAY ==
[2020-04-29 20:40] VITALS: BMI 25.4
--- NOTE | 2023-06-15 14:44 | DI.RAD.S_ITS ---
PROCEDURE: XR RIBS LT 2V INDICATIONS: rib pain TECHNIQUE: 2 views of the ribs were acquired. COMPARISON: None. FINDINGS: Surgical changes and devices: None. Bones and chest wall: No fractures or dislocations. No suspicious bony lesions. Overlying soft tissues appear unremarkable. Lungs and pleura: The visualized lung appears clear. No pleural effusions or pneumothorax are visible. IMPRESSION: No displaced rib fracture. Dictated by: Xin Stinson M.D. on 06/15/2023 at 16:40 Approved by: Xin Stinson M.D. on 06/15/2023 at 16:40
== END ==
PROVIDERS: PCP Family Medicine; Referring Provider Family Medicine; Visit Provider Family Medicine
DX: R07.81 Pleurodynia (principal)
CPT/HCPCS: 71100

== ENCOUNTER 2023-10-25 14:05 | Emergency (ER) | payer OTHER, SELFPAY ==
[2020-04-29 20:40] VITALS: BMI 25.4
[2023-10-25 14:38] VITALS: BP 183/114; PULSE 124; RESP 22; TEMP 36.6; O2SAT 95; BMI 33.4
== END 2023-10-25 20:12 | disposition left against medical advice (07) ==
PROVIDERS: Emergency Provider Emergency Medicine; PCP Family Medicine
CPT/HCPCS: 99281

== ENCOUNTER 2024-12-12 14:12 | Emergency (ER) | payer OTHER, SELFPAY ==
[2020-04-29 20:40] VITALS: BMI 25.4
[2024-12-12] VITALS (12 sets, daily range): BP systolic 150–179; BP diastolic 90–119; PULSE 78–96; RESP 14–18; TEMP 36.7; O2SAT 96–98; BMI 29.6
--- NOTE | 2024-12-12 14:29 | DI.RAD.S_ITS ---
PROCEDURE: XR CHEST 1V INDICATIONS: Chest Pain TECHNIQUE: One view of the chest was acquired. COMPARISON: [facility], CR, XR CHEST 1V, 12/18/2022, 16:16. [facility], CR, XR CHEST 1V, 10/13/2021, 11:52. FINDINGS: Surgical changes and devices: None. Lungs and pleura: Lungs are clear. No pleural effusions or pneumothorax. Mediastinum: Mediastinal contours appear normal. Heart size is normal. Bones and chest wall: No suspicious bony lesions. Overlying soft tissues appear unremarkable. IMPRESSION: No acute cardiopulmonary abnormality is seen. Dictated by: Vel Estrada M.D. on 12/12/2024 at 14:27 Approved by: Vel Estrada M.D. on 12/12/2024 at 14:27
--- NOTE | 2024-12-12 14:33 | EKG_ITS ---
[address] [address] [address] [address] Test Date: 2024-12-12 Pat Name: Joselito Waddell Department: Room: Gender: Male [employer] Analyst: KATLYN : 1980 Requested By: Order Number: [id number] Reading MD: Charan Holland Measurements Intervals Anderson Rate: 77 P: 50 ND: 162 QRS: -7 QRSD: 102 T: 45 QT: 392 QTc: 443 Interpretive Statements Normal sinus rhythm Electronically Signed On 12-13-2024 10:30:00 PDT by Charan Holland
[2024-12-12 14:35] LABS: Add Manual Diff / Slide Review NO; Hematocrit 43.6 % (41-53); Hemoglobin 15.1 g/dL (13.5-17.5); Lymphocytes Absolute Auto 1700 /uL (1100-4500); Mean Corpuscular HGB Conc 34.7 % (30-36); Mean Corpuscular Hemoglobin 32.5 PG (26-34); Mean Corpuscular Volume 93.5 fL (80-100); Platelet Count 251 X10^3/uL (150-400)
[2024-12-12 14:42] LABS: INR 0.9 (0.9-1.3); Prothrombin Time 10.3 SECONDS (9.4-12.5)
[2024-12-12 14:45] LABS: PTT Partial Thromboplastin Tim 27 SECONDS (25.1-36.5)
[2024-12-12 14:49] LABS: Alanine Aminotransferase 89 IU/L (<50); Albumin 4.4 g/dL (3.5-5.0); Albumin Globulin Ratio 1.5 (1.0-2.8); Alkaline Phosphatase 112 U/L (38-126); Blood Urea Nitrogen 17 mg/dL (9-20); Calcium 9.4 mg/dL (8.4-10.2); Carbon Dioxide 24 mmol/L (22-32); Chloride 100 mmol/L (98-107); Creatine Kinase 106 U/L (55-170); Estimated Glomerular Filt Rate > 60 mL/min (>60); Globulin 3.0 g/dL (1.7-4.1); Glucose 103 mg/dL (70-99); HEMOLYSIS 20 (0-50); Lipase 75 U/L (23-300); Magnesium 1.7 mg/dL (1.6-2.3); Potassium 4.6 mmol/L (3.4-5.1); Sodium 133 mmol/L (137-145); Total Protein 7.4 g/dL (6.3-8.2)
--- NOTE | 2024-12-12 14:56 | ED.ALCOHOL ---
HPI - Alcohol <Nick Mcintosh DO - Last Filed: 12/13/24 18:23> General Chief Complaint: Toxicology Problem Stated Complaint: Hypertensive Crisis Time Seen by Provider: 12/12/24 19:00 Source: EMS Mode of arrival: Wheelchair History of Present Illness HPI narrative: 44-year-old gentleman history of polysubstance abuse with meth and cocaine, history of alcohol use disorder last drink was over 24 hours ago presents with elevated blood pressure despite taking lisinopril. He was going to alcohol rehab in [facility] but was turned down due to elevated blood pressure, sob and chest pain. He denies headache, dizziness, chest pain, shortness of breath, leg pain, leg swelling, shaking, diaphoresis, nausea, vomiting, abdominal pain. Other than what is stated 14 point review system is negative Related Data Home Medications ?Medication ?Instructions ?Recorded ?Confirmed lisinopril 40 mg tablet 40 mg PO DAILY 11/09/22 10/25/23 Previous Rx's ?Medication ?Instructions ?Recorded hydroxyzine HCl 25 mg tablet 25 mg PO QID #30 tabs 10/25/23 pantoprazole 40 mg tablet,delayed 40 mg PO DAILY #30 tabs 10/25/23 release amlodipine 5 mg tablet 5 mg PO DAILY #30 tabs 12/12/24 Allergies Allergy/AdvReac Type Severity Reaction Status Date / Time No Known Drug Allergies Allergy Unverified 12/12/24 13:58 Review of Systems <Nick Mcintosh DO - Last Filed: 12/13/24 18:23> Review of Systems ROS Unobtainable: All systems reviewed & are unremarkable except as noted in HPI and below Patient History <Nick Mcintosh DO - Last Filed: 12/13/24 18:23> Medical History Chronic GERD Asthma Alcohol use disorder Anxiety Hypertension Family History Mother Hypertension Father Hypertension Social History marital status: unmarried,living together household members: significant other and children occupational status: employed Smoking Status: Former smoker alcohol intake: current substance use type: does not use Smoking Status: Former smoker alcohol intake frequency: 3 or more drinks per day Alcohol type: beer and hard liquor Exam <Nick Mcintosh DO - Last Filed: 12/13/24 18:23> Narrative Exam Narrative: GENERAL: [44] year old patient appears stated age. Well-developed patient, in mild distress. HEAD: Atraumatic. Normocephalic. EYES: Pupils equal round and reactive. Extraocular motions intact. No scleral icterus. No injection or drainage. ENT: Nose without bleeding, purulent drainage. Throat without erythema, tonsillar hypertrophy or exudate. Airway patent. NECK: Trachea midline. Non tender CARDIOVASCULAR: Regular rate and rhythm without murmurs, gallops, or rubs. RESPIRATORY: Clear to auscultation. Breath sounds equal bilaterally. No wheezes, rales, or rhonchi. GASTROINTESTINAL: Abdomen soft, non-tender, nondistended. EXTREMITIES: No edema or joint tenderness. BACK: Nontender without deformity or crepitance. No flank tenderness. NEURO: AOx3. SKIN: No rash or erythema of visible areas Initial Vital Signs Initial Vital Signs: Vital Signs Temperature 98.0 F 12/12/24 13:58 Pulse Rate 78 12/12/24 13:58 Respiratory Rate 18 12/12/24 13:58 Blood Pressure 164/90 H 12/12/24 13:58 Pulse Oximetry 98 12/12/24 13:58 Oxygen Delivery Method Room Air 12/12/24 13:58 <Angel Sorto MD - Last Filed: 12/12/24 21:42> Initial Vital Signs Initial Vital Signs: Vital Signs Temperature 98.0 F 12/12/24 13:58 Pulse Rate 78 12/12/24 13:58 Respiratory Rate 18 12/12/24 13:58 Blood Pressure 164/90 H 12/12/24 13:58 Pulse Oximetry 98 12/12/24 13:58 Oxygen Delivery Method Room Air 12/12/24 13:58 Course <Nick Mcintosh DO - Last Filed: 12/13/24 18:23> Orders Ordered: Discontinued Medications Amlodipine Besylate (Amlodipine 5 Mg Tablet) 5 mg PO NOW ONE Stop: 12/12/24 14:58 Last Admin: 12/12/24 15:10 Dose: 5 mg Documented By: RADHA Aspirin (Aspirin 81 Mg Chew Tab) 324 mg PO NOW ONE Stop: 12/12/24 14:30 Last Admin: 12/12/24 15:10 Dose: 324 mg Documented By: RADHA Chlordiazepoxide HCl (Chlordiazepoxide 25 Mg Capsule) 50 mg PO NOW ONE Stop: 12/12/24 19:03 Last Admin: 12/12/24 19:06 Dose: 50 mg Documented By: DEB Vital Signs Vital signs: Vital Signs - 8 hr 12/12/24 13:58 12/12/24 14:23 12/12/24 14:30 Temperature 98.0 F Pulse Rate 78 80 80 Respiratory Rate 18 17 Blood Pressure 164/90 H Pulse Oximetry 98 97 98 Oxygen Delivery Method Room Air 12/12/24 14:31 12/12/24 14:31 12/12/24 15:00 Temperature Pulse Rate 81 83 Respiratory Rate 15 15 Blood Pressure 161/119 H 168/110 H Pulse Oximetry 98 97 Oxygen Delivery Method Room Air 12/12/24 16:00 12/12/24 17:00 12/12/24 17:30 Temperature Pulse Rate 80 85 86 Respiratory Rate 17 14 15 Blood Pressure 150/103 H 151/102 H 163/95 H Pulse Oximetry 96 97 97 Oxygen Delivery Method Room Air Room Air Room Air 12/12/24 19:00 12/12/24 19:30 12/12/24 20:00 Temperature Pulse Rate 91 H 92 H 96 H Respiratory Rate 18 16 17 Blood Pressure 179/110 H 166/104 H 157/100 H Pulse Oximetry 97 97 96 Oxygen Delivery Method Room Air Room Air Room Air <Angel Sorto MD - Last Filed: 12/12/24 21:42> Course Course Narrative: 15:30 Patient care signed out to me at the change of shift by Dr. Mcintosh with 2nd troponin pending and disposition regarding his alcohol withdrawal. This is a 44-year-old male patient with a history of hypertension, asthma, alcohol use disorder who was sent over from his intake at detox because his blood pressure was elevated to a level that made them call the ambulance. We do not have the number but he says he thought the upper number was 200. Along with that he had mild chest discomfort but no squeezing or crushing chest pain. 19:40 Patient has received Librium and is feeling better as far as shakes and withdrawal symptoms. Blood pressure has improved with treatment of his withdrawal in addition to his dose of amlodipine earlier. He would like to go back to the detox center where he was scheduled for intake today. 20:00 I spoke with the intake center for his detox, [facility]. They would like to review the paperwork from this visit and then phoned us back about having him transferred back there. 21:35 Patient's ER visit and records were reviewed by [facility], and they agreed to have him back there for alcohol detox. Patient has improved in terms of symptoms and blood pressure. He was given instructions to monitor his blood pressure follow up with primary care. New prescription for amlodipine 5 mg daily to be added to lisinopril. Orders Ordered: Discontinued Medications Amlodipine Besylate (Amlodipine 5 Mg Tablet) 5 mg PO NOW ONE Stop: 12/12/24 14:58 Last Admin: 12/12/24 15:10 Dose: 5 mg Documented By: RADHA Aspirin (Aspirin 81 Mg Chew Tab) 324 mg PO NOW ONE Stop: 12/12/24 14:30 Last Admin: 12/12/24 15:10 Dose: 324 mg Documented By: RADHA Chlordiazepoxide HCl (Chlordiazepoxide 25 Mg Capsule) 50 mg PO NOW ONE Stop: 12/12/24 19:03 Last Admin: 12/12/24 19:06 Dose: 50 mg Documented By: DEB Vital Signs Vital signs: Vital Signs - 8 hr 12/12/24 13:58 12/12/24 14:23 12/12/24 14:30 Temperature 98.0 F Pulse Rate 78 80 80 Respiratory Rate 18 17 Blood Pressure 164/90 H Pulse Oximetry 98 97 98 Oxygen Delivery Method Room Air 12/12/24 14:31 12/12/24 14:31 12/12/24 15:00 Temperature Pulse Rate 81 83 Respiratory Rate 15 15 Blood Pressure 161/119 H 168/110 H Pulse Oximetry 98 97 Oxygen Delivery Method Room Air 12/12/24 16:00 12/12/24 17:00 12/12/24 17:30 Temperature Pulse Rate 80 85 86 Respiratory Rate 17 14 15 Blood Pressure 150/103 H 151/102 H 163/95 H Pulse Oximetry 96 97 97 Oxygen Delivery Method Room Air Room Air Room Air 12/12/24 19:00 12/12/24 19:30 12/12/24 20:00 Temperature Pulse Rate 91 H 92 H 96 H Respiratory Rate 18 16 17 Blood Pressure 179/110 H 166/104 H 157/100 H Pulse Oximetry 97 97 96 Oxygen Delivery Method Room Air Room Air Room Air MDM - Alcohol <Nick Mcintosh, DO - Last Filed: 12/13/24 18:23> Lab Data 12/12/24 14:20 12/12/24 14:20 Labs: Lab Results 12/12/24 12/12/24 Range/Units 14:20 16:50 WBC 8.6 (4.5-11.0) X10^3/uL RBC 4.66 (4.5-5.9) X10^6/uL Hgb 15.1 (13.5-17.5) g/dL Hct 43.6 (41-53) % MCV 93.5 (80-100) fL MCH 32.5 (26-34) PG MCHC 34.7 (30-36) % RDW 12.9 (11.6-14.8) % Plt Count 251 (150-400) X10^3/uL Neut % (Auto) 73.3 (50-75) % Lymph % (Auto) 19.5 L (25-40) % Conway % (Auto) 6.0 (3-14) % Eos % (Auto) 0.4 L (2-4) % Baso % (Auto) 0.8 (0-2) % Neut # (Auto) 6300 (0202-3033) /uL Lymph # (Auto) 1700 (3534-8625) /uL Conway # (Auto) 500 (0-900) /uL Eos # (Auto) 0 (0-450) /uL Baso # (Auto) 100 (0-100) /uL PT 10.3 (9.4-12.5) SECONDS INR 0.9 (0.9-1.3) APTT 27 (25.1-36.5) SECONDS Sodium 133 L (137-145) mmol/L Potassium 4.6 (3.4-5.1) mmol/L Chloride 100 (98-107) mmol/L Carbon Dioxide 24 (22-32) mmol/L BUN 17 (9-20) mg/dL Creatinine 0.81 (0.66-1.25) mg/dL Estimated GFR > 60 (>60) mL/min BUN/Creatinine Ratio 21.0 (6-22) Glucose 103 H (70-99) mg/dL Calcium 9.4 (8.4-10.2) mg/dL Magnesium 1.7 (1.6-2.3) mg/dL Total Bilirubin 1.9 H (0.2-1.3) mg/dL AST 183 H (17-59) IU/L ALT 89 H (<50) IU/L Alkaline Phosphatase 112 (38-126) U/L Total Creatine Kinase 106 (55-170) U/L Troponin I < 0.012 < 0.012 (0.01-0.034) ng/mL NT-Pro-B Natriuret Pep 45 (<125) pg/mL Total Protein 7.4 (6.3-8.2) g/dL Albumin 4.4 (3.5-5.0) g/dL Globulin 3.0 (1.7-4.1) g/dL Albumin/Globulin Ratio 1.5 (1.0-2.8) Lipase 75 (23-300) U/L ECG Data Interpretation: NSR HR 77 AR 162 QRS [address]-t wave change Unchanged from 12/18/22 [facility] Narrative Medical decision making narrative: All lab work, vital signs, nurse triage note, medication list, previous ER visits, and all imaging studies reviewed. EKG showed normal sinus rhythm no ST T wave changes heart rate is 77. WBC 8.6 hemoglobin 15.1 platelets 251 INR 0.9 sodium 133 potassium 4.6 chloride 100 CO2 24 BUN 17 creatinine 0.81 glucose 103 he is and 1.7 T bili 1.9 AST 183 ALT 89 troponin normal 1st set. Patient is signed out to Dr. Garcia at shift change pending final disposition. Patient is here with alcohol withdrawal which has responded to Librium and lorazepam. Also he is here with severe hypertension and possible hypertensive crisis given his chest discomfort. EKG and troponins x2 are negative. Blood pressure has improved with amlodipine in addition to his lisinopril. Plan will be discharge back to detox center for management of alcohol withdrawal. We will add amlodipine, 5 mg daily to his lisinopril, 40 mg daily. <Angel Sorto MD - Last Filed: 12/12/24 21:42> Medical Records Attestation: I reviewed the patient's medical records. Lab Data Attestation: I reviewed the patient's lab results. Labs: Lab Results 12/12/24 12/12/24 Range/Units 14:20 16:50 WBC 8.6 (4.5-11.0) X10^3/uL RBC 4.66 (4.5-5.9) X10^6/uL Hgb 15.1 (13.5-17.5) g/dL Hct 43.6 (41-53) % MCV 93.5 (80-100) fL MCH 32.5 (26-34) PG MCHC 34.7 (30-36) % RDW 12.9 (11.6-14.8) % Plt Count 251 (150-400) X10^3/uL Neut % (Auto) 73.3 (50-75) % Lymph % (Auto) 19.5 L (25-40) % Conway % (Auto) 6.0 (3-14) % Eos % (Auto) 0.4 L (2-4) % Baso % (Auto) 0.8 (0-2) % Neut # (Auto) 6300 (1327-0429) /uL Lymph # (Auto) 1700 (8417-3257) /uL Conway # (Auto) 500 (0-900) /uL Eos # (Auto) 0 (0-450) /uL Baso # (Auto) 100 (0-100) /uL PT 10.3 (9.4-12.5) SECONDS INR 0.9 (0.9-1.3) APTT 27 (25.1-36.5) SECONDS Sodium 133 L (137-145) mmol/L Potassium 4.6 (3.4-5.1) mmol/L Chloride 100 (98-107) mmol/L Carbon Dioxide 24 (22-32) mmol/L BUN 17 (9-20) mg/dL Creatinine 0.81 (0.66-1.25) mg/dL Estimated GFR > 60 (>60) mL/min BUN/Creatinine Ratio 21.0 (6-22) Glucose 103 H (70-99) mg/dL Calcium 9.4 (8.4-10.2) mg/dL Magnesium 1.7 (1.6-2.3) mg/dL Total Bilirubin 1.9 H (0.2-1.3) mg/dL AST 183 H (17-59) IU/L ALT 89 H (<50) IU/L Alkaline Phosphatase 112 (38-126) U/L Total Creatine Kinase 106 (55-170) U/L Troponin I < 0.012 < 0.012 (0.01-0.034) ng/mL NT-Pro-B Natriuret Pep 45 (<125) pg/mL Total Protein 7.4 (6.3-8.2) g/dL Albumin 4.4 (3.5-5.0) g/dL Globulin 3.0 (1.7-4.1) g/dL Albumin/Globulin Ratio 1.5 (1.0-2.8) Lipase 75 (23-300) U/L MDM Narrative Medical decision making narrative: All lab work, vital signs, nurse triage note, medication list, previous ER visits, and all imaging studies reviewed. EKG showed normal sinus rhythm no ST T wave changes heart rate is 77. WBC 8.6 hemoglobin 15.1 platelets 251 INR 0.9 sodium 133 potassium 4.6 chloride 100 CO2 24 BUN 17 creatinine 0.81 glucose 103 he is and 1.7 T bili 1.9 AST 183 ALT 89 troponin normal 1st set Patient is here with alcohol withdrawal which has responded to Librium and lorazepam. Also he is here with severe hypertension and possible hypertensive crisis given his chest discomfort. EKG and troponins x2 are negative. Blood pressure has improved with amlodipine in addition to his lisinopril. Plan will be discharge back to detox center for management of alcohol withdrawal. We will add amlodipine, 5 mg daily to his lisinopril, 40 mg daily. Discharge Plan Departure Patient Disposition: Home Clinical Impression: Alcohol withdrawal, Hypertension, Atypical chest pain Instructions: Essential Hypertension, DI for Atypical Chest Pain, DI for Alcohol Use Disorder Activity Restrictions/Additional Instructions: Plan: Discharge back to [facility] detox stabilization. New prescription for amlodipine. Continue lisinopril. Monitor blood pressure and follow up with your doctor for reassessment of hypertension. Return to the ER as needed for any worsening symptoms such as worsening chest pain. Prescriptions: New amlodipine 5 mg tablet 5 mg PO DAILY Qty: 30 0RF No Action pantoprazole 40 mg tablet,delayed release (DR/EC) 40 mg PO DAILY Qty: 30 0RF hydroxyzine HCl 25 mg tablet 25 mg PO QID Qty: 30 0RF Rx Instructions: take as needed lisinopril 40 mg tablet 40 mg PO DAILY Referrals: Ronni Allen MD [Primary Care Provider, Family Practice] Stand Alone Forms: Patient Portal/API
[2024-12-12 14:59] LABS: NT-proBNP (BNP-Adult 18+) 45 pg/mL (<125); Troponin I < 0.012 ng/mL (0.01-0.034)
[2024-12-12] MEDS: ASPIRIN 81 MG CHEW TAB 324 MG PO (15:10)
[2024-12-12 17:55] LABS: Troponin I < 0.012 ng/mL (0.01-0.034)
== END 2024-12-12 21:54 | disposition home or self-care (01) ==
PROVIDERS: Family Medicine; Emergency Provider Emergency Medicine; PCP Family Medicine
DX: I10 Essential (primary) hypertension (principal); F10.139 Alcohol abuse with withdrawal, unspecified; R07.89 Other chest pain
CPT/HCPCS: 36415; 71045; 80053; 82550; 83690; 83735; 83880; 84484; 85025; 85610; 85730; 93005; 99284